=== PATIENT | female | born 1960 | race Caucasian/White ===

== ENCOUNTER 2024-03-23 13:00 | Outpatient (RCR) | payer MEDICAID, SELFPAY ==
--- NOTE | 2024-03-23 13:21 | PTNOTE_ITS ---
PT OP Initial Eval Patient Information Outpatient Physical Therapy Treatment Date: 03/23/24 Visit Reasons: low back pain Medical Diagnosis: M54.50 Treatment Dx #1: LBP Start of Care: 03/23/24 Date of Onset: 05/22/2022 Smoking Status Smoking Status: Current every day smoker Cessation Counseling Provided: CAPRICE was advised that quitting smoking is the single most important factor to protect the health of themselves and their family. Discussed the benefits of quitting smoking with patient. Encouraged patient to quit smoking and provided Cessation assistance materials and resources. Tobacco Use: Cigarette Years smoked: 45 Are you interested in quitting?: No Would you like additional Smoking Cessation Counseling?: No Initial Assessment Subjective: Patient is a 63-year-old female s/p L1-4 decompression, L3-4 TLIF presents in power riooter for LBP and LE weakness. Pt say she feels weak and can walk a few feet and then back to the chair. PMH: CVA with left hemiplegia with dysarthria, hypertension, alcoholic liver cirrhosis, polysubstance abuse, fibromyalgia, bipolar disorder, severe scoliosis, osteoporosis, PTSD, anxiety Imaging: Xrays of L/S Lumbar levoscoliosis 18 degrees?Lumbar fusion L4-L5 with satisfactory alignment?Mild to moderate disc narrowing above the fusion site, L1-L2, L2-L3, L3-L4 Pt goal: ?to build muscle and get more strength, less LBP Objective: LE strength: Quads: L: 4-/5, R: 4-/5 HS: 3+/5 B Gait: leans fwd, very hunched and kyphotic, discontinuous steps, no assistive device x15' Transfers: sit to stand independent with use of hands Observation: hyperkyphosis of T/S with levoscoliosis Balance: unsteady without hands TTP: mod/high of L/S paraspinals diffusely Assessment: Pt presents with decreased B LE strength L weaker than R and balance impairment consistent with lumbar DDD, stenosis and LE claudication. Pt may benefit from skilled therapy in order to meet goals and she has poor rehab potential due to severity of ssx. Short Term and Community Recreation Programmer Goals 1. Ind with HEP 2. Improved quad strength to at least 4/5 B in order to stand and ambulate for longer periods 3. Decreased TTP of L/S paraspinals from mod to min Treatment Plan ? ? ? 1. Manual therapy ? 2. Therex ? 3. Modalities as indicated, moist heat pack, ice, electrical stimulation ? ? ? Frequency and Duration: 1-2x a week for 12 visits Certification Dates: 03/23/24 to 06/21/24 Procedure Charges OP PT Eval Mod Complex 30 minutes: Yes
== END 2024-04-09 23:59 | disposition home or self-care (01) ==
LOC: CPTX 13:00
PROVIDERS: PCP Student in an Organized Health Care Education/Training Program; Referring Provider Student in an Organized Health Care Education/Training Program; Visit Provider Student in an Organized Health Care Education/Training Program
DX: M54.50 Low back pain, unspecified (principal); R53.1 Weakness; R26.89 Other abnormalities of gait and mobility; M41.86 Other forms of scoliosis, lumbar region; Z98.1 Arthrodesis status; Z71.6 Tobacco abuse counseling; F17.210 Nicotine dependence, cigarettes, uncomplicated
CPT/HCPCS: 97162

== ENCOUNTER 2024-04-21 10:49 | Emergency (ER) | payer MEDICAID, SELFPAY ==
[2024-04-21 11:09] VITALS: BP 187/89; PULSE 96; RESP 19; TEMP 36.9; O2SAT 98; BMI 22.7
--- NOTE | 2024-04-21 11:16 | XR_ITS ---
Examination: CT brain head without contrast. 2-D sagittal coronal reconstructions Date and time of exam:April 21, 2024 1225 hours Comparison March 09, 2024 INDICATIONS: Onset severe head pain today CTDI: vol (mGy):47.8 DLP: (mGycm):999 Technique: Multiple CT axial sections of the brain have been obtained, 5 mm slice thickness. Contrast has not been administered. 2-D sagittal, coronal reconstructions have been obtained Low dose protocols were performed. One or more of the following dose reduction techniques were used; automated exposure control, adjustment of the mA and/or KV according to patient size, use of iterative reconstruction technique. Findings: No significant ventricular enlargement. Intra-axial or extra-axial hemorrhage density is not seen. No mass effect or midline shift Basal cisterns are not remarkable. Fourth ventricle is midline. Cranial vault intact. Impression: Negative for acute hemorrhage, mass effect or midline shift Consider brain MRI MRA without contrast follow-up as clinically warranted
--- NOTE | 2024-04-21 11:17 | EDRME_ITS ---
Rapid Medical Screening Exam RME Arrival date/time: 04/21/24 10:49 63-year-old female presents emergency department complains of headache, right ear drainage and generalized bodyaches as well as dizziness. Patient reports that she has been out of her [place] for the last 6 weeks Chief Complaint: Recheck/Abnormal Lab/Rx Time Seen by Provider: 04/21/24 10:51 Vital signs: Vital Signs Temperature 98.4 F 04/21/24 11:09 Pulse Rate 96 04/21/24 11:09 Respiratory Rate 19 04/21/24 11:09 Blood Pressure 187/89 H 04/21/24 11:09 Pulse Oximetry (%) 98 04/21/24 11:09 Oxygen Delivery Method Room Air 04/21/24 11:09
[2024-04-21 12:24] LABS: Collection Type, Urine Clean Catch
[2024-04-21 12:40] LABS: Amphetamine/Methamp Scrn,U Negative (Negative); Barbiturate Screen,Urine Negative (Negative); Benzodiazepines Screen,Urine Negative (Negative); Benzoylecgonine Screen, Ur Negative (Negative); Fentanyl Screen,Urine Negative (Negative); Opiate Screen,Urine Negative (Negative); THC Screen,Urine Positive (Negative)
[2024-04-21 12:42] LABS: Bacteria,Urine 1+; Bilirubin,Urine Negative (Negative); Blood,Urine Negative (Negative); Clarity,Urine Clear (Clear/Hazy); Color,Urine Lt-Yellow (Lt Yel-Yel); Glucose, Urine Negative (Negative); Ketones,Urine Negative (Negative); Leukocyte Esterase,Urine Negative (Negative); Nitrite,Urine Negative (Negative); PH,Urine 6.5 (5.0-7.0); Protein,Urine Trace (Neg - Trace); RBC,Urine 2 /hpf (0-3); Specific Gravity,Urine 1.009 (1.001-1.035); Squamous Epithelial Cell,Urine 1 /hpf (0-5); Urobilinogen,Urine Negative mg/dL (0.0-1.0); WBC,Urine < 1 /hpf (0-5)
[2024-04-21 13:01] LABS: Culture Indicated,Urine Yes
[2024-04-21 13:54] VITALS: BP 182/127; BP 206/121; PULSE 107; RESP 20; TEMP 36.9; O2SAT 96
[2024-04-21 14:18] LABS: Basophils # (Auto) 0.1 Thou/mm3 (0.0-0.2); Basophils % (Auto) 1 % (0-2.5); Eosinophils # (Auto) 0.2 Thou/mm3 (0.0-0.5); Eosinophils % (Auto) 2 % (0-10); Hematocrit 39.8 % (36.0-46.0); Immature Granulocytes % (Auto) 1 % (0-0); Immature Granulocytes Auto 0.08 Thou/mm3 (0.00-0.00); Lymphocytes % (Auto) 22 % (10-50); Mean Corpuscular HGB Conc 32.7 g/dl (31.0-37.0); Mean Corpuscular Hemoglobin 33.3 pg (25.0-35.0); Mean Corpuscular Volume 102 fL (80-100); Monocytes % (Auto) 8 % (0-12); Neutrophils # (Auto) 9.1 Thou/mm3 (1.8-7.7); Neutrophils % (Auto) 68 % (37-80); Nucleated Red Blood Cell % 0 /100 WBC (0); Platelet Count 407 Thou/mm3 (140-440); RDW Standard Deviation 54.7 fL (36.4-46.3); White Blood Count 13.5 Thou/mm3 (3.6-11.0)
[2024-04-21 14:34] LABS: Alanine Aminotransferase 19 U/L (10-49); Albumin/Globulin Ratio 1.8 (1.2-2.2); Alkaline Phosphatase 108 U/L (46-116); Anion Gap 8 (7-16); Aspartate Amino Transferase 18 U/L (0-34); BUN/Creatinine Ratio 10 Ratio (12-20); Bilirubin,Total 0.2 mg/dL (0.3-1.2); Blood Urea Nitrogen 11 mg/dL (9-23); Calcium 9.5 mg/dL (8.3-10.6); Calcium (Corrected) 9.5 mg/dL (8.5-10.1); Chloride 102 mMol/L (98-107); Creatinine (Component) 1.1 mg/dL (0.6-1.3); Globulin 2.8 gm/dL (2.3-3.5); Glucose 108 mg/dL (74-106); Lipase 44 U/L (12-53); Osmolality,Calculated 272 (275-295); Potassium 3.5 mMol/L (3.4-5.1); Sodium 136 mMol/L (136-145); Total Protein 7.8 gm/dL (5.7-8.2); Troponin I < 0.020 ng/mL (0.0-0.045); eGFR 57 See Note
--- NOTE | 2024-04-21 14:35 | EDNOTE_ITS ---
ED Recheck Abnl Lab Rx-RME/HPI General Chief Complaint: Recheck/Abnormal Lab/Rx Stated Complaint: HIGH BP, NUNES, BLURRY VISION, RIGHT EAR DISCHARGE Time Seen by Provider: 04/21/24 10:51 Arrival date/time: 04/21/24 10:49 RME / HPI Description of abnormal result: 63-year-old female patient with significant history of debility, currently on electric scooter, came in for evaluation regarding headache right ear ache and generalized body weakness. Patient also complained of blurry vision and dizziness. Is been ongoing for several days. Patient told me that he ran out of his [place] for the last 6 weeks. Patient denies any cough denies any slurring of speech denies any other complaints no medications taken prior travel. Related Data Home Medications ?Medication ?Instructions ?Recorded ?Confirmed ziprasidone HCl 80 mg capsule 80 mg PO BID 04/05/19 02/04/24 (Geodon) venlafaxine 75 mg tablet 75 mg PO TID 12/04/20 02/04/24 atorvastatin 40 mg tablet 40 mg PO HS 03/27/23 02/04/24 cetirizine 10 mg tablet 10 mg PO DAILY PRN Allergy Symptoms 03/27/23 04/16/23 clonazepam 1 mg tablet 1 mg PO BID 03/27/23 04/16/23 docusate sodium 250 mg capsule 250 mg PO HSPRN PRN Constipation 03/27/23 04/16/23 (Stool Softener) ferrous sulfate 325 mg (65 mg 325 mg PO BID 03/27/23 04/16/23 iron) tablet (FeroSul) lamotrigine 25 mg tablet 50 mg PO HS 03/27/23 02/04/24 potassium chloride 10 mEq 10 meq PO DAILY 03/27/23 04/16/23 tablet,extended release pregabalin 75 mg capsule 75 mg PO TID PRN Pain 03/27/23 02/04/24 tizanidine 2 mg tablet 2 mg PO Q12HR PRN Muscle Spasm 03/27/23 02/04/24 clopidogrel 75 mg tablet 75 mg PO DAILY 04/16/23 04/16/23 hydrocodone 10 mg-acetaminophen 1 tab PO TID PRN pain 04/17/23 02/04/24 325 mg tablet docusate sodium 100 mg capsule mg PO 02/04/24 donepezil 5 mg tablet (Aricept) 5 mg PO QDAY 02/04/24 02/04/24 famotidine 20 mg tablet 20 mg PO QDAY 02/04/24 02/04/24 levothyroxine 150 mcg tablet 150 mcg PO QDAY 02/04/24 02/04/24 rivaroxaban 20 mg tablet (Xarelto) 20 mg PO QDAY 02/04/24 02/04/24 Previous Rx's ?Medication ?Instructions ?Recorded acetaminophen 500 mg tablet 1,000 mg (2 x 500 mg) PO Q6H PRN 07/05/23 (Tylenol Extra Strength) fever or pain #30 tabs diphenhydramine 12.5 1 tab PO BID #7 tabs 01/19/24 mg-acetaminophen 325 mg tablet (Percogesic) lisinopril 10 mg tablet 10 mg PO QDAY #30 tabs 04/21/24 Allergies Allergy/AdvReac Type Severity Reaction Status Date / Time diphenhydramine Allergy Severe ITCHING Verified 03/11/24 15:37 ketorolac Allergy Severe ITCHING Verified 03/11/24 15:37 Penicillins Allergy Severe ITCH Verified 03/11/24 15:37 sumatriptan succinate Allergy Severe ITCHING, Verified 03/11/24 15:37 VOMITING propranolol Allergy Unknown Verified 03/11/24 15:37 codeine AdvReac Severe Vomiting Verified 03/11/24 15:37 Review of Systems Review of Systems Narrative Review of Systems: Review of system reviewed and within normal limits except mentioned in HPI ED Exam Narrative Physical exam: VITAL SIGNS: Reviewed. GENERAL APPEARANCE: Alert and interactive, follows commands, no acute distress, HEAD AND FACE: Non-traumatic. ENT: PERRL, pink conjunctivitis, eyelid no trauma, Mucous membrane moist. Bilateral tympanic membrane , no erythema, no bulging nontender NECK: Supple, nontender, no nuchal rigidity. CHEST: No tenderness, no crepitus, no paradoxical movement, no retractions. LUNGS: Clear, well ventilated, symmetric, no rales, no wheezing, no ronchi, no stridor, good breath sounds bilaterally. HEART: Regular rate, regular rhythm, no murmur, no gallops. ABDOMEN: Soft, positive bowel sounds, nondistended, no guarding, nontender, no rebound, no masses, RECTAL: Deferred. GENITAL: Deferred. NEUROLOGICAL: Gross motor function intact sensory function intact, Appropriate for age. MUSCULOSKELETAL: low back nontender, full range of motion. EXTREMITIES: Nontender, full range of motion. SKIN: Color pink, dry, no rash, no lacerations, no abrasions, no contusions. LYMPHATICS: Deferred. Course Quality Measures none Orders Category Date Time Status CT head/brain wo con Stat Exams 04/21/24 11:16 Completed CBC Stat Lab 04/21/24 13:50 Completed Comprehensive Metabolic Panel Stat Lab 04/21/24 13:50 Completed Drug Screen,Urine Stat Lab 04/21/24 12:20 Completed Lipase Stat Lab 04/21/24 13:50 Completed Troponin I Stat Lab 04/21/24 13:50 Completed UA, C/S IF [Urinalysis, C/S if Indicated] Stat Lab 04/21/24 12:15 Completed Urine Culture Stat Lab 04/21/24 12:15 Received HYDROcodone/APAP 10/325 [[place] 10/325] Med 04/21/24 14:37 Discontinued 1 tab PO X1 ONE Morphine Inj Med 04/21/24 14:34 Discontinued 4 mg IM X1 ONE Ondansetron Odt [Zofran Odt] Med 04/21/24 14:34 Discontinued 4 mg PO X1 ONE hydrALAZINE HCL [Apresoline] Med 04/21/24 14:32 Discontinued 25 mg PO X1 ONE Vital Signs Vital signs: Vital Signs Temperature 98.4 F 04/21/24 11:09 Pulse Rate 96 04/21/24 11:09 Respiratory Rate 19 04/21/24 11:09 Blood Pressure 187/89 H 04/21/24 11:09 Pulse Oximetry (%) 98 04/21/24 11:09 Oxygen Delivery Method Room Air 04/21/24 11:09 Recheck / Abnormal Lab / Rx MDM Narrative MDM Narrative:: 63-year-old female patient with significant history of debility, currently on electric scooter, came in for evaluation regarding headache right ear ache and generalized body weakness. Patient also complained of blurry vision and dizziness. Is been ongoing for several days. Patient told me that he ran out of his [place] for the last 6 weeks. Patient denies any cough denies any slurring of speech denies any other complaints no medications taken prior travel. Patient's workup today all came back unremarkable except for leukocytosis of 13.5 CMP unremarkable. Troponin is normal urinalysis no UTI drug toxicity positive for marijuana. Including normal CT scan of the head. Patient data External records reviewed:: None Clinical information provided by:: none Social determinants that could affect healthcare access:: none Patient has the following chronic illnesses:: Shift history of bipolar disorder chronic kidney disease type 2 diabetes mellitus How is presenting disease/condition affected by chronic disease/condition?: exacerbated by Evaluation data The following diagnostics were reviewed and interpreted by me:: lab results and radiology exam(s) Lab and/or radiology exams considered but not ordered:: None Interpretation Summary: CT scan of the head came back unremarkable. Laboratory couple came back unremarkable except for slight leukocytosis. Urinalysis no UTI. Medications / Prescriptions Medications or Prescriptions considered but not ordered:: None Medication administrations:: Medication Administration History Discontinued Medications Hydrocodone Bitart/Acetaminophen (Hydrocodone/Apap 10/325 Tab) 1 tab PO X1 ONE Stop: 04/21/24 14:38 Last Admin: 04/21/24 15:20 Dose: 1 tab Documented By: DONATO Hydralazine HCl (Hydralazine Hcl 25 Mg Tablet) 25 mg PO X1 ONE Stop: 04/21/24 14:33 Last Admin: 04/21/24 15:20 Dose: 25 mg Documented By: DONATO Morphine Sulfate (Morphine Sulf Inj 10 Mg/Ml Vial) 4 mg IM X1 ONE Stop: 04/21/24 14:35 Last Admin: 04/21/24 15:15 Dose: Not Given Documented By: DONATO Non-Admin Reason: Discontinued Ondansetron HCl (Ondansetron Odt 4 Mg Tabrap) 4 mg PO X1 ONE; Protocol Stop: 04/21/24 14:35 Last Admin: 04/21/24 15:20 Dose: 4 mg Documented By: DONATO Patient received , hydralazine, and [place] with significant improvement of symptoms. Consultations Consultation(s) initiated? (list below): No Diagnosis Recheck Differential Diagnosis: other (Headache, dizziness, hypertension) Most likely diagnosis given after review of the tests above:: Headache, hypertension Admission Indicated Admission indicated?: not indicated Admission Request Was there a request for admission?: No Disposition Plan Disposition Plan: Discharge Discharge Attestation Discharge Attestation: The patient was given an opportunity to ask questions and understood the discharge instructions. Discharge instructions specifically effects, indications for sooner follow up or return to the emergency department, and the expected course of current diagnosis. Patient condition: Stable Discharge Plan Plan Patient Disposition: HOME (Self Care) Disposition Comment: stable Prescriptions/Referrals Prescriptions/Med Rec: New lisinopril 10 mg tablet 10 mg PO QDAY Qty: 30 0RF No Action ziprasidone HCl [Geodon] 80 mg Capsule 80 mg PO BID venlafaxine 75 mg Tablet 75 mg PO TID acetaminophen [Tylenol Extra Strength] 500 mg tablet 1,000 mg PO Q6H PRN (Reason: fever or pain) Qty: 30 0RF Percogesic 12.5-325 mg tablet 1 tab PO BID Qty: 7 0RF Xarelto 20 mg Tablet 20 mg PO QDAY Rx Instructions: must administer with evening meal donepezil [Aricept] 5 mg Tablet 5 mg PO QDAY famotidine 20 mg Tablet 20 mg PO QDAY levothyroxine 150 mcg Tablet 150 mcg PO QDAY docusate sodium 100 mg Capsule PO ferrous sulfate [FeroSul] 325 mg (65 mg iron) tablet 325 mg PO BID Patient Comments: TAKE ONE TABLET BY MOUTH WITH ORANGE JUICE TWICE DAILY VITAMIN lamotrigine 25 mg tablet 50 mg PO HS Patient Comments: TAKE TWO TABLETS BY MOUTH EVERY DAY tizanidine 2 mg tablet 2 mg PO Q12HR PRN (Reason: Muscle Spasm) Patient Comments: TAKE ONE TABLET BY MOUTH EVERY 12 hours NEEDED FOR MUSCLE spasm DO not exceed THREE doses in 24 hours clonazepam 1 mg tablet 1 mg PO BID Patient Comments: TAKE ONE TABLET BY MOUTH TWICE DAILY FOR ANXIETY docusate sodium [Stool Softener] 250 mg Capsule 250 mg PO HSPRN PRN (Reason: Constipation) atorvastatin 40 mg tablet 40 mg PO HS Patient Comments: TAKE ONE TABLET BY MOUTH AT BEDTIME FOR CHOLESTEROL cetirizine 10 mg tablet 10 mg PO DAILY PRN (Reason: Allergy Symptoms) Patient Comments: TAKE ONE TABLET BY MOUTH EVERY DAY NEEDED FOR ALLERGY potassium chloride 10 mEq tablet extended release 10 meq PO DAILY Patient Comments: TAKE ONE TABLET BY MOUTH EVERY DAY WITH FOOD pregabalin 75 mg capsule 75 mg PO TID PRN (Reason: Pain) Patient Comments: TAKE ONE CAPSULE BY MOUTH THREE TIMES DAILY NEEDED FOR PAIN clopidogrel 75 mg tablet 75 mg PO DAILY Patient Comments: TAKE ONE TABLET BY MOUTH EVERY DAY FOR THE HEART hydrocodone-acetaminophen 10-325 mg Tablet 1 tab PO TID PRN (Reason: pain) Referrals: No Primary/Family,Physician [Primary Care Provider] - In 1 week Problem List Clinical Impression: Hypertension, Headache Patient/Caregiver Discharge Instructions Discharge Activity: activity as tolerated Education Materials: ED High Blood Pressure ... Additional Instructions: Thank you for the opportunity for serving you today. You are stable for discharged . You are advised to: Follow-up with your PCP in 1 to 2 days Return to ED for worsening of symptoms Increase oral fluids Take medication as prescribed Print Language: Romanian Stand Alone Forms: Fany Award Info., Patient Portal Info Letter PA/SHIPPING SERVICES SALES REPRESENTATIVE Supervising Physician PA/SHIPPING SERVICES SALES REPRESENTATIVE Supervising Physician: MD Barbara
[2024-04-21 15:20] VITALS: BP 206/121; PULSE 107
[2024-04-21] MEDS: ONDANSETRON ODT 4 MG TABRAP PO (15:20)
[2024-04-21] MEDS: HYDROcodone/APAP 10/325 TAB PO (15:20)
[2024-04-21] MEDS: hydrALAZINE HCL 25 MG TABLET PO (15:20)
[2024-04-21 16:15] VITALS: BP 170/116; PULSE 104; RESP 20; TEMP 36.8; O2SAT 95
== END 2024-04-21 17:46 | disposition home or self-care (01) ==
PROVIDERS: Nurse Practitioner Primary Care; Emergency Provider Emergency Medicine
DX: R51.9 Headache, unspecified (principal); I10 Essential (primary) hypertension
CPT/HCPCS: 36415; 70450; 80053; 80307; 81001; 83690; 84484; 85025; 87086; 99284; Q0162; A9270

== ENCOUNTER 2024-04-27 14:00 | Outpatient (RCR) | payer MEDICAID, SELFPAY ==
--- NOTE | 2024-04-13 14:40 | PT.ODAYNRPT ---
PT Outpatient Daily Note OP Daily Note Outpatient Physical Therapy Treatment Date: 04/13/24 Visit Reasons: LOW BACK PAIN Subjective: Pt reports LBP and weak legs. Objective: Please see flow sheet for ther ex list. Assessment: Pt presents with excessive trunk flexion, pt educated on upright posture. Pt encouraged to work on posture for HEP, pt agreed. Plan: Continue with POC, assess response to treatment. Length of Time (minutes) of Treatment: 30 Minutes Procedure Charges Therapeutic Exercise 30 minutes: Yes
--- NOTE | 2024-04-20 14:51 | PT.ODAYNRPT ---
PT Outpatient Daily Note OP Daily Note Outpatient Physical Therapy Treatment Date: 04/20/24 Visit Reasons: LOW BACK PAIN Subjective: Pt reports LBP and mentioned she was sore after last session. Objective: Please see flow sheet for ther ex list. Assessment: Interventions given alternating sitting an standing to maximize pt participation. Plan: Continue with POC. Length of Time (minutes) of Treatment: 30 Minutes Procedure Charges Therapeutic Exercise 30 minutes: Yes
--- NOTE | 2024-04-27 14:28 | PT.ODAYNRPT ---
PT Outpatient Daily Note OP Daily Note Outpatient Physical Therapy Treatment Date: 04/27/24 Visit Reasons: LOW BACK PAIN Subjective: Pt reports she is having a lot of pain in the shoulder and low back. Objective: Please see flow sheet for ther ex list. Assessment: Pt demonstrates poor activity tolerance today due to pain. Interventions mostly performed in sitting due to aggravating pain in standing. Plan: Continue with POC. Length of Time (minutes) of Treatment: 30 Minutes Procedure Charges Therapeutic Exercise 30 minutes: Yes
== END 2024-05-10 23:59 | disposition home or self-care (01) ==
LOC: CPTX 14:00
PROVIDERS: PCP Student in an Organized Health Care Education/Training Program; Referring Provider Student in an Organized Health Care Education/Training Program; Visit Provider Student in an Organized Health Care Education/Training Program
DX: M54.50 Low back pain, unspecified (principal); R53.1 Weakness; Z98.890 Other specified postprocedural states
CPT/HCPCS: 97110

== ENCOUNTER 2024-05-02 13:27 | Emergency (ER) | payer MEDICAID, SELFPAY ==
--- NOTE | 2024-05-02 13:45 | XR_ITS ---
Examination: CT abdomen and pelvis without contrast. Coronal 3-D reconstructions. Sagittal 2-D reconstructions. Date and time of exam:May 02, 2024 1456 hrs. Indications: Lower abdominal pain with bloody stools beginning 3 days ago CTDI: vol (mGy): 8.99 DLP: (mGycm): 486 Technique: Axial images of the abdomen have been obtained, 3 mm slice thickness Intravenous contrast material has not been administered. Low dose protocols were performed. One or more of the following dose reduction techniques were used; automated exposure control, adjustment of the mA and/or KV according to patient size, use of iterative reconstruction technique. Findings: No focal liver or splenic lesions No biliary tract dilatation. Absent gallbladder No pancreatic mass. No hydronephrosis renal or ureteral calculi Abdominal aortic calcification no aneurysmal dilatation No bowel obstruction or diverticulitis Urinary bladder intact Advanced degenerative disc disease involving the lumbar spine On the lateral view there appears to be rectal and vaginal prolapse Impression: Rectal and vaginal prolapse
--- NOTE | 2024-05-02 13:46 | PD.EDRME ---
Rapid Medical Screening Exam RME Arrival date/time: 05/02/24 13:27 63-year-old female presents to the emergency department today for concerns for possible vaginal prolapse Chief Complaint: Urogenital-Female Time Seen by Provider: 05/02/24 13:34
[2024-05-02 13:48] VITALS: BP 105/67; PULSE 96; RESP 18; TEMP 36.6; O2SAT 99; BMI 33.3
[2024-05-02] MEDS: HYDROcodone/APAP 5/325 TABLET 1 TAB PO ×2 (13:52→18:14)
[2024-05-02 14:03] LABS: Basophils # (Auto) 0.1 Thou/mm3 (0.0-0.2); Basophils % (Auto) 1 % (0-2.5); Eosinophils # (Auto) 0.1 Thou/mm3 (0.0-0.5); Eosinophils % (Auto) 1 % (0-10); Hematocrit 39.3 % (36.0-46.0); Hemoglobin 12.4 g/dL (12.0-16.0); Immature Granulocytes % (Auto) 1 % (0-0); Immature Granulocytes Auto 0.06 Thou/mm3 (0.00-0.00); Lymphocytes # (Auto) 2.5 Thou/mm3 (1.0-4.8); Lymphocytes % (Auto) 20 % (10-50); Mean Corpuscular HGB Conc 31.6 g/dl (31.0-37.0); Mean Corpuscular Hemoglobin 33.1 pg (25.0-35.0); Mean Corpuscular Volume 105 fL (80-100); Monocytes # (Auto) 0.8 Thou/mm3 (0.0-0.8); Monocytes % (Auto) 7 % (0-12); Neutrophils # (Auto) 9.1 Thou/mm3 (1.8-7.7); Neutrophils % (Auto) 72 % (37-80); Nucleated Red Blood Cell % 0 /100 WBC (0); Platelet Count 363 Thou/mm3 (140-440); RDW Standard Deviation 54.8 fL (36.4-46.3); Red Blood Count 3.75 Miln/mm3 (4.00-5.20); White Blood Count 12.7 Thou/mm3 (3.6-11.0)
[2024-05-02 14:16] LABS: Collection Type, Urine Clean Catch
[2024-05-02 14:25] LABS: Alanine Aminotransferase 19 U/L (10-49); Albumin, Serum 4.8 gm/dL (3.4-4.8); Albumin/Globulin Ratio 1.8 (1.2-2.2); Alkaline Phosphatase 96 U/L (46-116); Anion Gap 6 (7-16); Aspartate Amino Transferase 32 U/L (0-34); BUN/Creatinine Ratio 8 Ratio (12-20); Bilirubin,Total 0.2 mg/dL (0.3-1.2); Blood Urea Nitrogen 10 mg/dL (9-23); Calcium 9.6 mg/dL (8.3-10.6); Calcium (Corrected) 9.6 mg/dL (8.5-10.1); Carbon Dioxide 27.3 mMol/L (20.0-31.0); Chloride 103 mMol/L (98-107); Creatinine (Component) 1.2 mg/dL (0.6-1.3); Estimated Creatinine Clearance 43.4 mL/min (>60); Globulin 2.7 gm/dL (2.3-3.5); Glucose 88 mg/dL (74-106); Lipase 51 U/L (12-53); Osmolality,Calculated 269 (275-295); Potassium 4.7 mMol/L (3.4-5.1); Sodium 136 mMol/L (136-145); Total Protein 7.5 gm/dL (5.7-8.2); eGFR 52 See Note
[2024-05-02 14:30] LABS: Bacteria,Urine 2+; Bilirubin,Urine Negative (Negative); Blood,Urine Negative (Negative); Clarity,Urine Clear (Clear/Hazy); Color,Urine Lt-Yellow (Lt Yel-Yel); Glucose, Urine Negative (Negative); Ketones,Urine Negative (Negative); Leukocyte Esterase,Urine Negative (Negative); Nitrite,Urine Negative (Negative); PH,Urine 6.5 (5.0-7.0); Protein,Urine Negative (Neg - Trace); RBC,Urine 1 /hpf (0-3); Specific Gravity,Urine 1.007 (1.001-1.035); Squamous Epithelial Cell,Urine 2 /hpf (0-5); Urobilinogen,Urine Negative mg/dL (0.0-1.0); WBC,Urine 1 /hpf (0-5)
[2024-05-02 14:34] LABS: Culture Indicated,Urine Yes
--- NOTE | 2024-05-02 15:55 | EDNOTE_ITS ---
ED General RME/HPI General Chief complaint: Urogenital-Female Stated complaint: FEELS LIKE MY BLADDER IS COMING OUT Time Seen by Provider: 05/02/24 13:34 Arrival date/time: 05/02/24 13:27 CC: Low center abdominal pain with bloody urination HPI ongoing for 1 year but the low center abdominal pain has worsened in the last 2 days. Patient states 1 year ago she was seen by her PLANOGRAMMER who states that she has a dropped bladder , patient did not follow-up now states it is beginning to bother her. Patient states she continues to have blood in her urine for the last year . Patient denies fever cough shortness of breath difficulty breathing. RME / HPI RME / HPI narrative: 05/02/24 13:27 63-year-old female presents to the emergency department today for concerns for possible vaginal prolapse Related Data Home Medications ?Medication ?Instructions ?Recorded ?Confirmed ziprasidone HCl 80 mg capsule 80 mg PO BID 04/05/19 02/04/24 (Geodon) venlafaxine 75 mg tablet 75 mg PO TID 12/04/20 02/04/24 atorvastatin 40 mg tablet 40 mg PO HS 03/27/23 02/04/24 cetirizine 10 mg tablet 10 mg PO DAILY PRN Allergy Symptoms 03/27/23 04/16/23 clonazepam 1 mg tablet 1 mg PO BID 03/27/23 04/16/23 docusate sodium 250 mg capsule 250 mg PO HSPRN PRN Constipation 03/27/23 04/16/23 (Stool Softener) ferrous sulfate 325 mg (65 mg 325 mg PO BID 03/27/23 04/16/23 iron) tablet (FeroSul) lamotrigine 25 mg tablet 50 mg PO HS 03/27/23 02/04/24 potassium chloride 10 mEq 10 meq PO DAILY 03/27/23 04/16/23 tablet,extended release pregabalin 75 mg capsule 75 mg PO TID PRN Pain 03/27/23 02/04/24 tizanidine 2 mg tablet 2 mg PO Q12HR PRN Muscle Spasm 03/27/23 02/04/24 clopidogrel 75 mg tablet 75 mg PO DAILY 04/16/23 04/16/23 hydrocodone 10 mg-acetaminophen 1 tab PO TID PRN pain 04/17/23 02/04/24 325 mg tablet docusate sodium 100 mg capsule mg PO 02/04/24 donepezil 5 mg tablet (Aricept) 5 mg PO QDAY 02/04/24 02/04/24 famotidine 20 mg tablet 20 mg PO QDAY 02/04/24 02/04/24 levothyroxine 150 mcg tablet 150 mcg PO QDAY 02/04/24 02/04/24 rivaroxaban 20 mg tablet (Xarelto) 20 mg PO QDAY 02/04/24 02/04/24 Previous Rx's ?Medication ?Instructions ?Recorded acetaminophen 500 mg tablet 1,000 mg (2 x 500 mg) PO Q6H PRN 07/05/23 (Tylenol Extra Strength) fever or pain #30 tabs diphenhydramine 12.5 1 tab PO BID #7 tabs 01/19/24 mg-acetaminophen 325 mg tablet (Percogesic) lisinopril 10 mg tablet 10 mg PO QDAY #30 tabs 04/21/24 meloxicam 7.5 mg tablet 7.5 mg PO QDAY #10 tabs 05/02/24 Allergies Allergy/AdvReac Type Severity Reaction Status Date / Time diphenhydramine Allergy Severe ITCHING Verified 03/11/24 15:37 ketorolac Allergy Severe ITCHING Verified 03/11/24 15:37 Penicillins Allergy Severe ITCH Verified 03/11/24 15:37 sumatriptan succinate Allergy Severe ITCHING, Verified 03/11/24 15:37 VOMITING propranolol Allergy Unknown Verified 03/11/24 15:37 codeine AdvReac Severe Vomiting Verified 03/11/24 15:37 Review of Systems Review of Systems Narrative Review of Systems: GEN: No fever, no chills, no weight loss EYES: No discharge, no visual changes, no pain HEENT: No ear pain, no congestion, no sore throat PULM: No shortness of breath, no cough, no congestion CV: No chest pain, no dyspnea on exertion, no palpitations GI: No nausea, no vomiting, no diarrhea, + pain, no constipation : No frequency, no urgency, no dysuria MUSC/SKEL: No joint pain, no back pain SKIN: No rash PSYCH: No hallucinations, no depression HEME/LYMPH: No easy bleeding or bruising tendencies NEURO: No weakness, no headache Past Medical History Past Medical History NEUROLOGIC: Positive Neurological Disorders, Cerebrovascular Accident, Transient Ischemic Attacks (TIA), Seizures, Migraine and Head Trauma CARDIAC: Positive Cardiac Disorders, Hypercholesterolemia and Hypertension; Negative Congestive Heart Failure or Edema RESPIRATORY: Positive Chronic Obstructive Pulmonary Disease (COPD) and Asthma GASTROINTESTINAL: Positive Gastrointestinal Disorders, Cirrhosis, Ulcer, Gastroesophageal Reflux Disease and Obesity; Negative Hepatitis GENITOURINARY: Positive Genitourinary Disorders and Renal Disease REPRODUCTIVE: Positive Previous Pregnancies MUSCULOSKELETAL: Positive Musculoskeletal Disorders, Arthritis, Osteoporosis, Degenerative Disk Disease, Gout, Scoliosis, Fibromyalgia and Fractures ENT: Positive Head Trauma ENDOCRINE: Positive Endocrine Disorders and Hypothyroidism; Negative Diabetes Mellitus Type 1 or Diabetes Mellitus Type 2 HEMATOLOGIC: Positive Blood Disorders and Anemia; Negative Sickle Cell Disease or Clotting Problems PSYCHO/SOCIAL: Positive Bipolar Disorder, Depression, Anxiety and Post Traumatic Stress Disorder OTHER HISTORY: Positive Falls, Blood Transfusions, Chemotherapy, Chicken Pox, Measles and Mumps; Negative Hospitalization, Shingles, Blood Transfusion Reaction, Anesthesia Reactions, Radiation Therapy or MRSA Family History FAMILY HISTORY: Positive Family Cancer; Negative Family Respiratory Disorders, Family Surgery or Family Anesthesia Reaction Surgical History SURGICAL: Positive Endocrine Surgery, Thyroidectomy, Abdominal Surgery, Amputation, Open Reduction Internal Fixation, Hysterectomy and Section; Negative Cardiac Surgery, Ear Surgery or Tubal Ligation Social History SMOKING STATUS: Heavy (> 1 pack/day) SECOND HAND EXPOSURE: No (vape) SUBSTANCE USE: does not use ED Exam Narrative Physical exam: [General: Obese not in any acute distress Head normocephalic HEENT: Within acceptable limits Neck is supple nontender Chest equal chest rise nontender to palpation Respiratory: Clear to auscultation no wheezes crackles or rubs CV: Rate rhythm is regular no murmurs rubs or clicks Abdomen low center abdominal tenderness no reflexive guarding no rebound tenderness. No masses positive bowel sounds all 4 quadrants Back: No CVA tenderness no spinous process tenderness from cervical spine thoracic and lumbar spine Skin: Intact no petechiae rash induration ulceration or crepitus Extremities: Moving all extremity against resistance cap refill less than 2 seconds neurosensory intact. No edema in the lower extremities. Neuro: Awake alert oriented x3 Glascow coma 15 no focal deficits] Course Quality Measures none Orders Category Date Time Status CT abdomen pelvis wo con Stat Exams 05/02/24 13:45 Completed US abdomen limited Stat Exams 05/02/24 17:26 Completed CBC Stat Lab 05/02/24 13:54 Completed Comprehensive Metabolic Panel Stat Lab 05/02/24 13:54 Completed Lipase Stat Lab 05/02/24 13:54 Completed UA, C/S IF [Urinalysis, C/S if Indicated] Stat Lab 05/02/24 13:53 Completed Urine Culture Stat Lab 05/02/24 13:53 Received HYDROcodone*/APAP 5/325 [[place] 5/325] Med 05/02/24 13:47 Discontinued 1 tab PO X1 ONE HYDROcodone*/APAP 5/325 [[place] 5/325] Med 05/02/24 18:03 Discontinued 1 tab PO X1 ONE Vital Signs Vital signs: Vital Signs Temperature 98 F 05/02/24 13:48 Pulse Rate 96 05/02/24 13:48 Respiratory Rate 18 05/02/24 13:48 Blood Pressure 105/67 05/02/24 13:48 Pulse Oximetry (%) 99 05/02/24 13:48 Oxygen Delivery Method Room Air 05/02/24 13:48 MDM Patient data External records reviewed:: [facility] previous records Clinical information provided by:: patient Social determinants that could affect healthcare access:: none Patient has the following chronic illnesses:: Long list of complaints and diagnoses most of which are nonlethal How is presenting disease/condition affected by chronic disease/condition?: u neffected by Evaluation data The following diagnostics were reviewed and interpreted by me:: lab results and radiology exam(s) Lab and/or radiology exams considered but not ordered:: CBC shows leukocytosis of 12.7 no anemia thrombocytopenia CMP shows no significant electrolyte imbalances renal impairment transaminitis or T. bili elevation Lipase 51 Interpretation Summary: Prolapsed uterus prolapsed rectum Medications Medications considered but not ordered:: None Medication administrations:: Medication Administration History Discontinued Medications Hydrocodone Bitart/Acetaminophen (Hydrocodone/Apap 5/325 Tablet) 1 tab PO X1 ONE Stop: 05/02/24 13:48 Last Admin: 05/02/24 13:52 Dose: 1 tab Documented By: JACOB Hydrocodone Bitart/Acetaminophen (Hydrocodone/Apap 5/325 Tablet) 1 tab PO X1 ONE Stop: 05/02/24 18:04 Last Admin: 05/02/24 18:14 Dose: 1 tab Documented By: SONIA None Consultations Consultation(s) initiated? (list below): No Diagnosis Differential Diagnosis ED Complaint MDM: Prolapsed uterus prolapsed prolapsed rectum no prolapse bladder Most likely diagnosis given after review of the tests above:: Rectal and vaginal prolapse Admission Indicated Admission indicated?: not indicated Explain why admission is indicated or not indicated:: Stable for outpatient follow-up Admission Request Was there a request for admission?: No Disposition Plan Disposition Plan: Discharge Discharge Attestation Discharge Attestation: The patient and all family members were given an opportunity to ask questions and understood the discharge instructions. Discharge instructions specifically effects, indications for sooner follow up or return to the emergency department, and the expected course of current diagnosis. Patient condition: Stable Medical Decision Making Differential Diagnosis Differential Diagnosis: Prolapsed uterus prolapsed prolapsed rectum no prolapse bladder Lab Data 05/02/24 13:54 05/02/24 13:54 Labs: Lab Results 05/02/24 05/02/24 Range/Units 13:53 13:54 WBC 12.7 H (3.6-11.0) Thou/mm3 RBC 3.75 L (4.00-5.20) Miln/mm3 Hgb 12.4 (12.0-16.0) g/dL Hct 39.3 (36.0-46.0) % MCV 105 H (80-100) fL MCH 33.1 (25.0-35.0) pg MCHC 31.6 (31.0-37.0) g/dl RDW Std Deviation 54.8 H (36.4-46.3) fL Plt Count 363 D (140-440) Thou/mm3 Neut % (Auto) 72 (37-80) % Lymph % (Auto) 20 (10-50) % Rogers % (Auto) 7 (0-12) % Eos % (Auto) 1 (0-10) % Baso % (Auto) 1 (0-2.5) % Neut # (Auto) 9.1 H (1.8-7.7) Thou/mm3 Lymph # (Auto) 2.5 (1.0-4.8) Thou/mm3 Rogers # (Auto) 0.8 (0.0-0.8) Thou/mm3 Eos # (Auto) 0.1 (0.0-0.5) Thou/mm3 Baso # (Auto) 0.1 (0.0-0.2) Thou/mm3 Immature Gran # (Auto) 0.06 H (0.00-0.00) Thou/mm3 Absolute Nucleated RBC 0.00 (0.00-0.00) Thou/mm3 Immature Gran % 1 H (0-0) % Nucleated RBC % 0 (0) /100 WBC Sodium 136 (136-145) mMol/L Potassium 4.7 (3.4-5.1) mMol/L Chloride 103 (98-107) mMol/L Carbon Dioxide 27.3 (20.0-31.0) mMol/L Anion Gap 6 L (7-16) BUN 10 (9-23) mg/dL Creatinine 1.2 (0.6-1.3) mg/dL Estim Creat Clear Calc 43.4 L (>60) mL/min eGFR 52 L (60 - ) See Note BUN/Creatinine Ratio 8 L (12-20) Ratio Glucose 88 (74-106) mg/dL Calculated Osmolality 269 L (275-295) Calcium 9.6 (8.3-10.6) mg/dL Corrected Calcium 9.6 (8.5-10.1) mg/dL Total Bilirubin 0.2 L (0.3-1.2) mg/dL AST 32 (0-34) U/L ALT 19 (10-49) U/L Alkaline Phosphatase 96 (46-116) U/L Total Protein 7.5 (5.7-8.2) gm/dL Albumin 4.8 (3.4-4.8) gm/dL Globulin 2.7 (2.3-3.5) gm/dL Albumin/Globulin Ratio 1.8 (1.2-2.2) Lipase 51 (12-53) U/L Ur Collection Type Clean Catch Urine Color Lt-Yellow (Lt Yel-Yel) Urine Clarity Clear (Clear/Hazy) Urine pH 6.5 (5.0-7.0) Ur Specific [place] 1.007 (1.001-1.035) Urine Protein Negative (Neg - Trace) Urine Glucose (UA) Negative (Negative) Urine Ketones Negative (Negative) Urine Blood Negative (Negative) Urine Nitrite Negative (Negative) Urine Bilirubin Negative (Negative) Urine Urobilinogen (Auto) Negative (0.0-1.0) mg/dL Ur Leukocyte Esterase Negative (Negative) Urine RBC 1 (0-3) /hpf Urine WBC 1 (0-5) /hpf Ur Squamous Epith Cells 2 (0-5) /hpf Urine Bacteria 2+ A (None) Ur Culture Indicated? Yes Discharge Plan Plan Patient Disposition: HOME (Self Care) Patient condition on transfer: Stable Prescriptions/Referrals Prescriptions/Med Rec: New meloxicam 7.5 mg tablet 7.5 mg PO QDAY Qty: 10 0RF No Action ziprasidone HCl [Geodon] 80 mg Capsule 80 mg PO BID venlafaxine 75 mg Tablet 75 mg PO TID acetaminophen [Tylenol Extra Strength] 500 mg tablet 1,000 mg PO Q6H PRN (Reason: fever or pain) Qty: 30 0RF Percogesic 12.5-325 mg tablet 1 tab PO BID Qty: 7 0RF Xarelto 20 mg Tablet 20 mg PO QDAY Rx Instructions: must administer with evening meal donepezil [Aricept] 5 mg Tablet 5 mg PO QDAY famotidine 20 mg Tablet 20 mg PO QDAY levothyroxine 150 mcg Tablet 150 mcg PO QDAY docusate sodium 100 mg Capsule PO lisinopril 10 mg tablet 10 mg PO QDAY Qty: 30 0RF ferrous sulfate [FeroSul] 325 mg (65 mg iron) tablet 325 mg PO BID Patient Comments: TAKE ONE TABLET BY MOUTH WITH ORANGE JUICE TWICE DAILY VITAMIN lamotrigine 25 mg tablet 50 mg PO HS Patient Comments: TAKE TWO TABLETS BY MOUTH EVERY DAY tizanidine 2 mg tablet 2 mg PO Q12HR PRN (Reason: Muscle Spasm) Patient Comments: TAKE ONE TABLET BY MOUTH EVERY 12 hours NEEDED FOR MUSCLE spasm DO not exceed THREE doses in 24 hours clonazepam 1 mg tablet 1 mg PO BID Patient Comments: TAKE ONE TABLET BY MOUTH TWICE DAILY FOR ANXIETY docusate sodium [Stool Softener] 250 mg Capsule 250 mg PO HSPRN PRN (Reason: Constipation) atorvastatin 40 mg tablet 40 mg PO HS Patient Comments: TAKE ONE TABLET BY MOUTH AT BEDTIME FOR CHOLESTEROL cetirizine 10 mg tablet 10 mg PO DAILY PRN (Reason: Allergy Symptoms) Patient Comments: TAKE ONE TABLET BY MOUTH EVERY DAY NEEDED FOR ALLERGY potassium chloride 10 mEq tablet extended release 10 meq PO DAILY Patient Comments: TAKE ONE TABLET BY MOUTH EVERY DAY WITH FOOD pregabalin 75 mg capsule 75 mg PO TID PRN (Reason: Pain) Patient Comments: TAKE ONE CAPSULE BY MOUTH THREE TIMES DAILY NEEDED FOR PAIN clopidogrel 75 mg tablet 75 mg PO DAILY Patient Comments: TAKE ONE TABLET BY MOUTH EVERY DAY FOR THE HEART hydrocodone-acetaminophen 10-325 mg Tablet 1 tab PO TID PRN (Reason: pain) Referrals: Grant Perez MD [Primary Care Provider] - In 1 week Lalito Mistry MD [Physician] - In 1 week Erika Alexander MD [Physician] - In 1 week Problem List Clinical Impression: Partial rectal prolapse, Incomplete prolapse of vaginal vault Patient/Caregiver Discharge Instructions Other Activity Instructions:: Take the medication or Tylenol for pain follow-up with your primary care doctor seek a referral for your own IV OB or the OB listed above and or your own surgeon or the 1 listed above. Education Materials: Pelvic Organ Prolapse, ED Rectal Prolapse Print Language: Albanian Stand Alone Forms: Fany Award Info., Patient Portal Info Letter PA/PIERCE Supervising Physician PA/CLINIC CMA Supervising Physician: Etienne Friedman ENP
--- NOTE | 2024-05-02 16:09 | PRELIM_ITS ---
CT scan of the abdomen and pelvis without intravenous contrast (axial sections with sagittal and jarret nal reformats) May 02, 2024 1456 hours Clinical History: Rule out possible vaginal prolapse Comp arison: Reference is made to the prior CT abdomen and pelvis report dated 09/01/2020. Prior images ar e not available for comparison at the time of interpretation.Findings:The lung bases are clear. There is mild wall thickening of the distal thoracic esophagus, which may be related to reflux esophagitis . The gallbladder is surgically absent. There is no biliary obstruction. Bilateral renal cortical cys ts are seen. A 1 cm exophytic hypodense lesion (24 HU) is seen in the right kidney. No evidence of re nal/ureteric calculus or hydroureteronephrosis. The liver, pancreas, spleen, adrenals are unremarkabl e on this non-contrast study. There is thickening versus underdistention of the stomach, descending/t ransverse duodenum and proximal jejunal loops in the left upper abdomen. No evidence of bowel obstruc tion. The appendix is not visualized. A moderate amount of fecal material is present in the colon. Th e urinary bladder is incompletely distended. The uterus is surgically absent. There appears to be sof t tissue density low lying in the pelvis (sagittal image 89/198 ). There is no free fluid or free air . Calcific densities are seen in the pelvis, likely representing phleboliths. The abdominal aorta and its branches demonstrate atheromatous calcification without evidence of aneurysm. Posterior spinal f usion is seen from L3 through L5 levels. Degenerative changes are identified in the spine. There is a n old fracture involving sacrococcygeal junction.Impression:1. No evidence of bowel obstruction or fr ee air.2. Thickening versus underdistention of the stomach, descending/transverse duodenum and proxim al jejunal loops in the left upper abdomen, the possibility of mild gastroenteritis cannot be exclude d in the appropriate clinical setting.3. Possible soft tissue density low lying in the pelvis, the po ssibility of vaginal prolapse cannot be entirely excluded on this non-contrast study.4. Other finding s as described above. Report Electronically Signed By: Constance Atkinson 05/02/2024 4:08:34 PM [EST]
--- NOTE | 2024-05-02 17:26 | XR_ITS ---
Examination: Abdomen sonogram, Limited Date and time of exam: May 02, 2024 1811 hrs. Indications: Pelvic pain beginning 3 days ago Technique: Real-time garcia scale transabdominal sonographic images of the upper abdomen obtained. Findings: No cystic or solid pelvic mass No free fluid in the pelvis No bladder mass or bladder calculi Impression: Negative examination
[2024-05-02 18:08] VITALS: BP 107/53; PULSE 70; RESP 16; TEMP 36.9; O2SAT 96
[2024-05-02 20:01] VITALS: BP 121/65; PULSE 87; RESP 16; TEMP 36.9; O2SAT 99
--- NOTE | 2024-05-02 20:38 | PRELIM_ITS ---
Pelvic ultrasound (transabdominal). May 02, 2024 at 1811 hours Clinical history: Pelvic pain x3 days. Check for vaginal prolapse. Hysterectomy.Technique: Real-time, grayscale, transabdominal pelvi c ultrasound was performed using Duplex scanning.Comparison: CT abdomen and pelvis performed earlier today.Findings:The uterus is surgically absent. Vaginal stripe is seen.The ovaries are not demonstrat ed.No evidence of pelvic mass.There is no free fluid on the submitted images. The urinary bladder is within normal limits.Impression:Status post hysterectomy. No pelvic mass or free fluid. Report Electr onically Signed By: Amaury South 05/02/2024 8:37:26 PM [EST]
== END 2024-05-02 20:02 | disposition home or self-care (01) ==
PROVIDERS: Nurse Practitioner Primary Care; Emergency Provider Emergency Medicine; PCP Student in an Organized Health Care Education/Training Program
DX: K62.3 Rectal prolapse (principal); N81.4 Uterovaginal prolapse, unspecified
CPT/HCPCS: 36415; 74176; 76705; 80053; 81001; 83690; 85025; 87086; 99284; A9270

== ENCOUNTER 2024-05-05 07:17 | Emergency (ER) | payer MEDICAID, SELFPAY ==
--- NOTE | 2024-05-05 07:41 | PC.NURSE ---
Call pt from lobby and outside no answer
[2024-05-05 07:53] VITALS: BP 101/63; PULSE 95; RESP 19; TEMP 36.4; O2SAT 99; BMI 33.1
[2024-05-05 08:32] LABS: Collection Type, Urine Clean Catch
[2024-05-05 08:39] LABS: Bilirubin,Urine Negative (Negative); Blood,Urine Negative (Negative); Clarity,Urine Clear (Clear/Hazy); Color,Urine Yellow (Lt Yel-Yel); Glucose, Urine Negative (Negative); Hyaline Casts,Urine < 1 /hpf (0-1); Ketones,Urine Negative (Negative); Leukocyte Esterase,Urine Negative (Negative); Nitrite,Urine Negative (Negative); PH,Urine 6.5 (5.0-7.0); Protein,Urine Trace (Neg - Trace); RBC,Urine 2 /hpf (0-3); Squamous Epithelial Cell,Urine 1 /hpf (0-5); Urobilinogen,Urine Negative mg/dL (0.0-1.0); WBC,Urine 1 /hpf (0-5)
--- NOTE | 2024-05-05 08:46 | PD.EDRME ---
Rapid Medical Screening Exam RME Arrival date/time: 05/05/24 07:17 This is a 63-year-old female who presented to the emergency department with complaints of dysuria for 3 days. Patient also requesting pain medication requesting narcotic tab. I have greeted and performed a focused initial assessment of this patient. Initial appropriate labs ordered at this time. A comprehensive ED assessment and evaluation of the patient and analysis of all test and completion of medical decision making process will be conducted by additional ED provider. Chief Complaint: Urogenital-Female Time Seen by Provider: 05/05/24 07:37 Vital signs: Vital Signs Temperature 97.6 F 05/05/24 07:53 Pulse Rate 95 05/05/24 07:53 Respiratory Rate 19 05/05/24 07:53 Blood Pressure 101/63 05/05/24 07:53 Pulse Oximetry (%) 99 05/05/24 07:53 Oxygen Delivery Method Room Air 05/05/24 07:53
[2024-05-05] MEDS: HYDROcodone/APAP 5/325 TABLET 1 TAB PO (09:55)
--- NOTE | 2024-05-22 07:34 | EDNOTE_ITS ---
<Statement entered by Soledad Rodriguez MD - 05/26/24 17:35> As co-signing physician, I was present and available for consult prn. I concur with the plan and care as documented by the midlevel provider. ED Back Injury Pain RME/HPI General Chief Complaint: Urogenital-Female Stated Complaint: Painful urination Time Seen by Provider: 05/05/24 07:37 Source: patient Arrival date/time: 05/05/24 07:17 This is a 63-year-old female who presented to the emergency department with complaints of dysuria for 3 days. Patient also requesting pain medication requesting narcotic tab reports she has history of chronic pain. No fever, cough, shortness of breath, chest pain, chills, abdominal pain, diarrhea, hematuria, hematochezia, melena, focal weakness, fall, blunt trauma, loss of consciousness, incontinence. Mode of arrival: ambulatory RME / HPI RME / HPI Narrative: 05/05/24 07:17 This is a 63-year-old female who presented to the emergency department with complaints of dysuria for 3 days. Patient also requesting pain medication requesting narcotic tab. I have greeted and performed a focused initial assessment of this patient. Initial appropriate labs ordered at this time. A comprehensive ED assessment and evaluation of the patient and analysis of all test and completion of medical decision making process will be conducted by additional ED provider. Related Data Home Medications ?Medication ?Instructions ?Recorded ?Confirmed ziprasidone HCl 80 mg capsule 80 mg PO BID 04/05/19 02/04/24 (Geodon) venlafaxine 75 mg tablet 75 mg PO TID 12/04/20 02/04/24 atorvastatin 40 mg tablet 40 mg PO HS 03/27/23 02/04/24 cetirizine 10 mg tablet 10 mg PO DAILY PRN Allergy Symptoms 03/27/23 04/16/23 clonazepam 1 mg tablet 1 mg PO BID 03/27/23 04/16/23 docusate sodium 250 mg capsule 250 mg PO HSPRN PRN Constipation 03/27/23 04/16/23 (Stool Softener) ferrous sulfate 325 mg (65 mg 325 mg PO BID 03/27/23 04/16/23 iron) tablet (FeroSul) lamotrigine 25 mg tablet 50 mg PO HS 03/27/23 02/04/24 potassium chloride 10 mEq 10 meq PO DAILY 03/27/23 04/16/23 tablet,extended release pregabalin 75 mg capsule 75 mg PO TID PRN Pain 03/27/23 02/04/24 tizanidine 2 mg tablet 2 mg PO Q12HR PRN Muscle Spasm 03/27/23 02/04/24 clopidogrel 75 mg tablet 75 mg PO DAILY 04/16/23 04/16/23 hydrocodone 10 mg-acetaminophen 1 tab PO TID PRN pain 04/17/23 02/04/24 325 mg tablet docusate sodium 100 mg capsule mg PO 02/04/24 donepezil 5 mg tablet (Aricept) 5 mg PO QDAY 02/04/24 02/04/24 famotidine 20 mg tablet 20 mg PO QDAY 02/04/24 02/04/24 levothyroxine 150 mcg tablet 150 mcg PO QDAY 02/04/24 02/04/24 rivaroxaban 20 mg tablet (Xarelto) 20 mg PO QDAY 02/04/24 02/04/24 Previous Rx's ?Medication ?Instructions ?Recorded acetaminophen 500 mg tablet 1,000 mg (2 x 500 mg) PO Q6H PRN 07/05/23 (Tylenol Extra Strength) fever or pain #30 tabs diphenhydramine 12.5 1 tab PO BID #7 tabs 01/19/24 mg-acetaminophen 325 mg tablet (Percogesic) lisinopril 10 mg tablet 10 mg PO QDAY #30 tabs 04/21/24 meloxicam 7.5 mg tablet 7.5 mg PO QDAY #10 tabs 05/02/24 Allergies Allergy/AdvReac Type Severity Reaction Status Date / Time diphenhydramine Allergy Severe ITCHING Verified 03/11/24 15:37 ketorolac Allergy Severe ITCHING Verified 03/11/24 15:37 Penicillins Allergy Severe ITCH Verified 03/11/24 15:37 sumatriptan succinate Allergy Severe ITCHING, Verified 03/11/24 15:37 VOMITING propranolol Allergy Unknown Verified 03/11/24 15:37 codeine AdvReac Severe Vomiting Verified 03/11/24 15:37 Review of Systems Review of Systems Systems Reviewed: All systems reviewed, normal except as documented Narrative Review of Systems: Gen: No fever, no chills, no weight loss EYES: No discharge, no visual changes, no pain HEENT: No ear pain, no congestion, no sore throat PULM: No shortness of breath, no cough, no congestion CV: No chest pain, no dyspnea on exertion, no palpitations GI: No nausea, no vomiting, no diarrhea, no pain, no constipation : No frequency, no urgency,? +mild dysuria Musc/skel: No joint pain, no back pain Skin: No rash? ED Exam Narrative Physical exam: General: Obese not in any acute distress, chronically ill-appearing Head normocephalic HEENT: Within acceptable limits Neck is supple nontender Chest equal chest rise nontender to palpation Respiratory: Clear to auscultation no wheezes crackles or rubs CV: Rate rhythm is regular no murmurs rubs or clicks Abdomen low center abdominal tenderness no reflexive guarding no rebound tender ness. No masses positive bowel sounds all 4 quadrants Back: No CVA tenderness no spinous process tenderness from cervical spine thoracic and lumbar spine Skin: Intact no petechiae rash induration ulceration or crepitus Extremities: Moving all extremity against resistance cap refill less than 2 seconds neurosensory intact. No edema in the lower extremities. Neuro: Awake alert oriented x3 Glascow coma 15 no focal deficits Course Quality Measures none Orders Category Date Time Status UA [Urinalysis] Stat Lab 05/05/24 08:19 Completed HYDROcodone*/APAP 5/325 [[place] 5/325] Med 05/05/24 09:13 Discontinued 1 tab PO X1 ONE Vital Signs Vital signs: Vital Signs Temperature 97.6 F 05/05/24 07:53 Pulse Rate 95 05/05/24 07:53 Respiratory Rate 19 05/05/24 07:53 Blood Pressure 101/63 05/05/24 07:53 Pulse Oximetry (%) 99 05/05/24 07:53 Oxygen Delivery Method Room Air 05/05/24 07:53 Back Pain / Injury Patient data External records reviewed:: [facility] [place] previous records Clinical information provided by:: patient Social determinants that could affect healthcare access:: none Patient has the following chronic illnesses:: yes How is presenting disease/condition affected by chronic disease/condition?: exacerbated by Evaluation data The following diagnostics were reviewed and interpreted by me:: lab results Lab and/or radiology exams considered but not ordered:: no Interpretation Summary: Urinalysis negative Medications / Prescriptions Medications or Prescriptions considered but not ordered:: Antibiotics however you are a clean Medication administrations:: Medication Administration History Discontinued Medications Hydrocodone Bitart/Acetaminophen (Hydrocodone/Apap 5/325 Tablet) 1 tab PO X1 ONE Stop: 05/05/24 09:14 Last Admin: 05/05/24 09:55 Dose: 1 tab Documented By: JOHN All medications administered and effective Consultations Consultation(s) initiated? (list below): No Diagnosis Differential diagnosis back pain/injury: lumbar radiculopathy, strain of lumbar region, thoracic back pain and other (UTI) Most likely diagnosis given after review of the tests above:: Chronic pain syndrome, dysuria Admission Indicated Admission indicated?: not indicated Admission Request Was there a request for admission?: No Disposition Plan Disposition Plan: Discharge Discharge Attestation Discharge Attestation: The patient and all family members were given an opportunity to ask questions and understood the discharge instructions. Discharge instructions specifically effects, indications for sooner follow up or return to the emergency department, and the expected course of current diagnosis. Patient condition: Stable Discharge Plan Plan Patient Disposition: HOME (Self Care) Patient condition on transfer: Stable Prescriptions/Referrals Prescriptions/Med Rec: No Action ziprasidone HCl [Geodon] 80 mg Capsule 80 mg PO BID venlafaxine 75 mg Tablet 75 mg PO TID acetaminophen [Tylenol Extra Strength] 500 mg tablet 1,000 mg PO Q6H PRN (Reason: fever or pain) Qty: 30 0RF Percogesic 12.5-325 mg tablet 1 tab PO BID Qty: 7 0RF Xarelto 20 mg Tablet 20 mg PO QDAY Rx Instructions: must administer with evening meal donepezil [Aricept] 5 mg Tablet 5 mg PO QDAY famotidine 20 mg Tablet 20 mg PO QDAY levothyroxine 150 mcg Tablet 150 mcg PO QDAY docusate sodium 100 mg Capsule PO lisinopril 10 mg tablet 10 mg PO QDAY Qty: 30 0RF meloxicam 7.5 mg tablet 7.5 mg PO QDAY Qty: 10 0RF ferrous sulfate [FeroSul] 325 mg (65 mg iron) tablet 325 mg PO BID Patient Comments: TAKE ONE TABLET BY MOUTH WITH ORANGE JUICE TWICE DAILY VITAMIN lamotrigine 25 mg tablet 50 mg PO HS Patient Comments: TAKE TWO TABLETS BY MOUTH EVERY DAY tizanidine 2 mg tablet 2 mg PO Q12HR PRN (Reason: Muscle Spasm) Patient Comments: TAKE ONE TABLET BY MOUTH EVERY 12 hours NEEDED FOR MUSCLE spasm DO not exceed THREE doses in 24 hours clonazepam 1 mg tablet 1 mg PO BID Patient Comments: TAKE ONE TABLET BY MOUTH TWICE DAILY FOR ANXIETY docusate sodium [Stool Softener] 250 mg Capsule 250 mg PO HSPRN PRN (Reason: Constipation) atorvastatin 40 mg tablet 40 mg PO HS Patient Comments: TAKE ONE TABLET BY MOUTH AT BEDTIME FOR CHOLESTEROL cetirizine 10 mg tablet 10 mg PO DAILY PRN (Reason: Allergy Symptoms) Patient Comments: TAKE ONE TABLET BY MOUTH EVERY DAY NEEDED FOR ALLERGY potassium chloride 10 mEq tablet extended release 10 meq PO DAILY Patient Comments: TAKE ONE TABLET BY MOUTH EVERY DAY WITH FOOD pregabalin 75 mg capsule 75 mg PO TID PRN (Reason: Pain) Patient Comments: TAKE ONE CAPSULE BY MOUTH THREE TIMES DAILY NEEDED FOR PAIN clopidogrel 75 mg tablet 75 mg PO DAILY Patient Comments: TAKE ONE TABLET BY MOUTH EVERY DAY FOR THE HEART hydrocodone-acetaminophen 10-325 mg Tablet 1 tab PO TID PRN (Reason: pain) Referrals: Marley Salas MD [Primary Care Provider] - In 1 week Problem List Clinical Impression: Dysuria Patient/Caregiver Discharge Instructions Discharge Activity: activity as tolerated Education Materials: ED Dysuria, Uncertain Cause (Adult) Additional Instructions: Your urinalysis is negative for any infection. Follow-up with your doctor or clinic 24 to 48 hours for follow-up care. Return to the emergency department this any worsening symptoms change in cond ition. Print Language: Turkish Stand Alone Forms: Fany Award Info., Patient Portal Info Letter PA/PIERCE Supervising Physician RAMESH/PIERCE Supervising Physician: Dr. Joaquin
== END 2024-05-05 09:59 | disposition home or self-care (01) ==
PROVIDERS: Nurse Practitioner Primary Care; Emergency Provider Emergency Medicine; PCP Family Medicine
DX: R30.0 Dysuria (principal)
CPT/HCPCS: 81001; 99283; A9270

== ENCOUNTER 2024-05-31 13:39 | Emergency (ER) | payer MEDICAID, SELFPAY ==
[2024-05-31 13:41] VITALS: BMI 33.1
[2024-05-31 13:57] VITALS: BP 112/66; PULSE 72; RESP 17; TEMP 36.6; O2SAT 99
--- NOTE | 2024-05-31 14:01 | XR_ITS ---
Examination: CT abdomen and pelvis without contrast. Coronal 3-D reconstructions. Sagittal 2-D reconstructions. Date and time of exam:May 31, 2024 1416 hours Comparison May 02, 2024 INDICATIONS: Lower abdominal pain beginning 3 days ago CTDI: vol (mGy): 10.9 DLP: (mGycm): 630 Technique: Axial images of the abdomen have been obtained, 3 mm slice thickness Intravenous contrast material has not been administered. Low dose protocols were performed. One or more of the following dose reduction techniques were used; automated exposure control, adjustment of the mA and/or KV according to patient size, use of iterative reconstruction technique. Findings: No focal liver or splenic lesions Absent gallbladder No pancreatic or adrenal mass Multiple bilateral renal cysts Moderate bilateral renal parenchymal scar formation 2 mm soft calcification lower pole right kidney image 109 No hydronephrosis or ureteral calculi Abdominal aortic calcification no aneurysmal dilatation No pericecal inflammatory change No bowel obstruction No diverticulitis No bladder mass or bladder calculi Absent uterus Rectal vaginal prolapse Severe osteopenia Transpedicular lumbar fusion L3-L5 with satisfactory alignment Advanced degenerative disc disease L2-L3 L1-L2 Moderate narrowing hip joints IMPRESSION: 2 mm soft calcification lower pole right kidney, no hydronephrosis or ureteral calculi Moderate bilateral renal parenchymal scar formation No bowel obstruction Pelvic floor prolapse
--- NOTE | 2024-05-31 14:02 | PD.EDRME ---
Rapid Medical Screening Exam RME Arrival date/time: 05/31/24 13:39 63-year-old female presents to the emergency department complaints of pelvic pain and dysuria Chief Complaint: Urogenital-Female Time Seen by Provider: 05/31/24 13:59 Vital signs: Vital Signs Temperature 97.8 F 05/31/24 13:57 Pulse Rate 72 05/31/24 13:57 Respiratory Rate 17 05/31/24 13:57 Blood Pressure 112/66 05/31/24 13:57 Pulse Oximetry (%) 99 05/31/24 13:57 Oxygen Delivery Method Room Air 05/31/24 13:57
[2024-05-31 15:57] LABS: Basophils # (Auto) 0.1 Thou/mm3 (0.0-0.2); Basophils % (Auto) 1 % (0-2.5); Eosinophils # (Auto) 0.1 Thou/mm3 (0.0-0.5); Eosinophils % (Auto) 1 % (0-10); Hematocrit 34.4 % (36.0-46.0); Hemoglobin 11.6 g/dL (12.0-16.0); Immature Granulocytes % (Auto) 1 % (0-0); Immature Granulocytes Auto 0.06 Thou/mm3 (0.00-0.00); Lymphocytes # (Auto) 1.9 Thou/mm3 (1.0-4.8); Lymphocytes % (Auto) 18 % (10-50); Mean Corpuscular HGB Conc 33.7 g/dl (31.0-37.0); Mean Corpuscular Hemoglobin 33.1 pg (25.0-35.0); Mean Corpuscular Volume 98 fL (80-100); Monocytes # (Auto) 0.8 Thou/mm3 (0.0-0.8); Monocytes % (Auto) 7 % (0-12); Neutrophils # (Auto) 7.9 Thou/mm3 (1.8-7.7); Neutrophils % (Auto) 73 % (37-80); Nucleated Red Blood Cell % 0 /100 WBC (0); Platelet Count 292 Thou/mm3 (140-440); RDW Standard Deviation 48.5 fL (36.4-46.3); White Blood Count 10.9 Thou/mm3 (3.6-11.0)
[2024-05-31 16:29] LABS: Alanine Aminotransferase 14 U/L (10-49); Albumin, Serum 4.5 gm/dL (3.4-4.8); Albumin/Globulin Ratio 1.6 (1.2-2.2); Alkaline Phosphatase 82 U/L (46-116); Anion Gap 7 (7-16); Aspartate Amino Transferase 18 U/L (0-34); BUN/Creatinine Ratio 15 Ratio (12-20); Bilirubin,Total 0.2 mg/dL (0.3-1.2); Blood Urea Nitrogen 18 mg/dL (9-23); Calcium 9.4 mg/dL (8.3-10.6); Calcium (Corrected) 9.4 mg/dL (8.5-10.1); Carbon Dioxide 24.7 mMol/L (20.0-31.0); Chloride 102 mMol/L (98-107); Creatinine (Component) 1.2 mg/dL (0.6-1.3); Estimated Creatinine Clearance 43.3 mL/min (>60); Globulin 2.8 gm/dL (2.3-3.5); Glucose 120 mg/dL (74-106); Lipase 47 U/L (12-53); Osmolality,Calculated 271 (275-295); Potassium 4.3 mMol/L (3.4-5.1); Sodium 134 mMol/L (136-145); Total Protein 7.3 gm/dL (5.7-8.2); eGFR 52 See Note
[2024-05-31 16:32] LABS: Collection Type, Urine Clean Catch; RBC,Urine 0 /hpf (0-3); WBC,Urine 0 /hpf (0-5)
[2024-05-31 16:43] LABS: Bacteria,Urine 1+; Bilirubin,Urine Negative (Negative); Blood,Urine Negative (Negative); Clarity,Urine Clear (Clear/Hazy); Color,Urine Colorless (Lt Yel-Yel); Glucose, Urine Negative (Negative); Ketones,Urine Negative (Negative); Leukocyte Esterase,Urine Negative (Negative); Nitrite,Urine Negative (Negative); PH,Urine 6.5 (5.0-7.0); Protein,Urine Negative (Neg - Trace); Specific Gravity,Urine 1.005 (1.001-1.035); Squamous Epithelial Cell,Urine 1 /hpf (0-5); Urobilinogen,Urine Negative mg/dL (0.0-1.0)
[2024-05-31 16:57] LABS: Amphetamine/Methamp Scrn,U Negative (Negative); Barbiturate Screen,Urine Negative (Negative); Benzodiazepines Screen,Urine Negative (Negative); Benzoylecgonine Screen, Ur Negative (Negative); Fentanyl Screen,Urine Negative (Negative); Opiate Screen,Urine Negative (Negative); THC Screen,Urine Positive (Negative)
[2024-05-31 17:00] LABS: Culture Indicated,Urine Yes
[2024-05-31 17:39] VITALS: BP 112/76; PULSE 78; RESP 20; TEMP 36.7; O2SAT 97
--- NOTE | 2024-05-31 21:04 | PC.NURSE ---
[facility]
--- NOTE | 2024-05-31 23:01 | PC.NURSE ---
CALLED PT IN ER LOBBY AND OUTSIDE OF ER AND NO ANSWER AT THIS TIME
--- NOTE | 2024-05-31 23:16 | PC.NURSE ---
N/A FROM [facility]
== END 2024-05-31 23:18 | disposition left against medical advice (07) ==
PROVIDERS: Nurse Practitioner Primary Care; Emergency Provider Emergency Medicine; PCP Family Medicine
DX: R10.2 Pelvic and perineal pain (principal); R30.0 Dysuria; Z53.29 Procedure and treatment not carried out because of patient's decision for other reasons
CPT/HCPCS: 36415; 74176; 80053; 80307; 81001; 83690; 85025; 87086; 99281

== ENCOUNTER 2024-06-01 13:04 | Emergency (ER) | payer MEDICAID, SELFPAY ==
[2024-06-01 13:26] VITALS: BP 113/71; PULSE 100; RESP 18; TEMP 36.6; O2SAT 99; BMI 32.7
--- NOTE | 2024-06-01 13:37 | EDNOTE_ITS ---
ED Female Urogenital RME/HPI General Chief complaint: Urogenital-Female Stated complaint: bladder pain x4 days Time Seen by Provider: 06/01/24 13:33 Arrival date/time: 06/01/24 13:04 63-year-old female presents emergency department with complaints of bladder pain patient reports previously diagnosed with bladder and rectal prolapse patient awaiting specialist appointment patient requesting prescription for pain medication Limitations: no limitations Related Data Home Medications ?Medication ?Instructions ?Recorded ?Confirmed ziprasidone HCl 80 mg capsule 80 mg PO BID 04/05/19 02/04/24 (Geodon) venlafaxine 75 mg tablet 75 mg PO TID 12/04/20 02/04/24 atorvastatin 40 mg tablet 40 mg PO HS 03/27/23 02/04/24 cetirizine 10 mg tablet 10 mg PO DAILY PRN Allergy Symptoms 03/27/23 04/16/23 clonazepam 1 mg tablet 1 mg PO BID 03/27/23 04/16/23 docusate sodium 250 mg capsule 250 mg PO HSPRN PRN Constipation 03/27/23 04/16/23 (Stool Softener) ferrous sulfate 325 mg (65 mg 325 mg PO BID 03/27/23 04/16/23 iron) tablet (FeroSul) lamotrigine 25 mg tablet 50 mg PO HS 03/27/23 02/04/24 potassium chloride 10 mEq 10 meq PO DAILY 03/27/23 04/16/23 tablet,extended release pregabalin 75 mg capsule 75 mg PO TID PRN Pain 03/27/23 02/04/24 tizanidine 2 mg tablet 2 mg PO Q12HR PRN Muscle Spasm 03/27/23 02/04/24 clopidogrel 75 mg tablet 75 mg PO DAILY 04/16/23 04/16/23 hydrocodone 10 mg-acetaminophen 1 tab PO TID PRN pain 04/17/23 02/04/24 325 mg tablet docusate sodium 100 mg capsule mg PO 02/04/24 donepezil 5 mg tablet (Aricept) 5 mg PO QDAY 02/04/24 02/04/24 famotidine 20 mg tablet 20 mg PO QDAY 02/04/24 02/04/24 levothyroxine 150 mcg tablet 150 mcg PO QDAY 02/04/24 02/04/24 rivaroxaban 20 mg tablet (Xarelto) 20 mg PO QDAY 02/04/24 02/04/24 Previous Rx's ?Medication ?Instructions ?Recorded acetaminophen 500 mg tablet 1,000 mg (2 x 500 mg) PO Q6H PRN 07/05/23 (Tylenol Extra Strength) fever or pain #30 tabs diphenhydramine 12.5 1 tab PO BID #7 tabs 01/19/24 mg-acetaminophen 325 mg tablet (Percogesic) lisinopril 10 mg tablet 10 mg PO QDAY #30 tabs 04/21/24 meloxicam 7.5 mg tablet 7.5 mg PO QDAY #10 tabs 05/02/24 hydrocodone 5 mg-acetaminophen 325 1 tab PO BID PRN pain #10 tabs 06/01/24 mg tablet Allergies Allergy/AdvReac Type Severity Reaction Status Date / Time diphenhydramine Allergy Severe ITCHING Verified 06/01/24 13:06 ketorolac Allergy Severe ITCHING Verified 06/01/24 13:06 Penicillins Allergy Severe ITCH Verified 06/01/24 13:06 sumatriptan succinate Allergy Severe ITCHING, Verified 06/01/24 13:06 VOMITING propranolol Allergy Unknown Verified 06/01/24 13:06 codeine AdvReac Severe Vomiting Verified 06/01/24 13:06 Review of Systems Review of Systems Systems Reviewed: All systems reviewed, normal except as documented Constitutional Constitutional: Reports system reviewed and no additional complaints, except as documented, Denies fever(s) and Denies headache(s) Eyes Eyes: Reports system reviewed and no additional complaints, except as documented and Denies blurry vision ENT Ears, Nose, Mouth, and Throat: Reports system reviewed and no additional complaints, except as documented, Denies headache(s), Denies nasal congestion and Denies nasal discharge Cardiovascular Cardiovascular: Reports system reviewed and no additional complaints, except as documented, Denies chest pain and Denies dyspnea Respiratory Respiratory: Reports system reviewed and no additional complaints, except as documented, Denies chest congestion, Denies cough and Denies dyspnea Gastrointestinal Gastrointestinal: Reports system reviewed and no additional complaints, except as documented and Denies abdominal pain Genitourinary Genitourinary: Reports system reviewed and no additional complaints, except as documented and Reports other (Pelvic pain) Integumentary/Breasts Skin/Breast: Reports system reviewed and no additional complaints, except as documented and Denies rash Neurologic Neurologic: Reports system reviewed and no additional complaints, except as documented, Reports as per HPI and Denies headache(s) Past Medical History Past Medical History NEUROLOGIC: Negative Neurological Disorders CARDIAC: Negative Cardiac Disorders ED Exam General Limitations: Present no limitations General appearance: Present alert and in no apparent distress Head Head exam: Present atraumatic, normocephalic and normal inspection Eye Eye exam: Present normal appearance, PERRL and EOMI; Absent conjunctival injection ENT ENT exam: Present normal exam, normal oropharynx and mucous membranes moist Neck Neck exam: Present normal inspection, full ROM and trachea midline Chest Chest inspection: Present normal inspection and symmetric chest wall rise Respiratory Respiratory exam: Present normal lung sounds bilaterally; Absent respiratory distress Cardiovascular Cardiovascular exam: Present regular rate, normal rhythm and normal heart sounds Abdominal Exam Abdominal exam: Present soft and normal bowel sounds; Absent distention, tenderness, guarding, rebound or rigidity External exam: Present other (Prolapse vaginal) Extremities Exam Extremities exam: Present normal inspection and full ROM; Absent tenderness Back Exam Back exam: Present normal inspection and full ROM Neurological Exam Neurological exam: Present alert, oriented X3, CN II-XII intact, normal gait and reflexes normal; Absent motor sensory deficit Psychiatric Psychiatric exam: Present normal affect and normal mood Skin Skin exam: Present warm, dry, intact and normal color; Absent rash Course Quality Measures none Orders Category Date Time Status HYDROcodone*/APAP 5/325 [[place] 5/325] Med 06/01/24 13:37 Discontinued 1 tab PO X1 ONE Vital Signs Vital signs: Vital Signs Temperature 98 F 06/01/24 13:26 Pulse Rate 100 06/01/24 13:26 Respiratory Rate 18 06/01/24 13:26 Blood Pressure 113/71 06/01/24 13:26 Pulse Oximetry (%) 99 06/01/24 13:26 Oxygen Delivery Method Room Air 06/01/24 13:26 o2 sat 99% r/a wnl Urogenital - Female MDM Narrative MDM Narrative:: 63-year-old female presents emergency department with complaints of bladder pain patient reports previously diagnosed with bladder and rectal prolapse patient awaiting specialist appointment patient requesting prescription for pain medication On exam patient does not appear ill or toxic in no acute distress I reviewed the patient's lab work and CT scan from yesterday Explained to the patient she is to follow-up with specialist as discussed for worsening symptoms return immediately Patient given [place] for pain and discharged home with [place] For emergent concerns patient instructed to return immediately Patient data External records reviewed:: [facility] previous records Clinical information provided by:: none Social determinants that could affect healthcare access:: none Patient has the following chronic illnesses:: None How is presenting disease/condition affected by chronic disease/condition?: no chronic disease Evaluation data The following diagnostics were reviewed and interpreted by me:: lab results and radiology exam(s) Lab and/or radiology exams considered but not ordered:: Labs and radiology ordered yesterday Interpretation Summary: Reviewed by me Medications / Prescriptions Medications or Prescriptions considered but not ordered:: Given Medication administrations:: Medication Administration History Discontinued Medications Hydrocodone Bitart/Acetaminophen (Hydrocodone/Apap 5/325 Tablet) 1 tab PO X1 ONE Stop: 06/01/24 13:38 Last Admin: 06/01/24 13:57 Dose: 1 tab Documented By: GM Given Consultations Consultation(s) initiated? (list below): No Diagnosis Urogenital Female Differential Diagnosis: urinary tract infection, cystitis and other (Rectal prolapse, vaginal prolapse) Most likely diagnosis given after review of the tests above:: Vaginal prolapse Admission Indicated Admission indicated?: not indicated Admission Request Was there a request for admission?: No Disposition Plan Disposition Plan: Discharge Discharge Attestation Discharge Attestation: The patient and all family members were given an opportunity to ask questions and understood the discharge instructions. Discharge instructions specifically effects, indications for sooner follow up or return to the emergency department, and the expected course of current diagnosis. Patient condition: Stable Discharge Plan Plan Patient Disposition: HOME (Self Care) Disposition Comment: Stable Prescriptions/Referrals Prescriptions/Med Rec: New hydrocodone-acetaminophen 5-325 mg tablet 1 tab PO BID MDD 10 PRN (Reason: pain) Qty: 10 0RF No Action ziprasidone HCl [Geodon] 80 mg Capsule 80 mg PO BID venlafaxine 75 mg Tablet 75 mg PO TID acetaminophen [Tylenol Extra Strength] 500 mg tablet 1,000 mg PO Q6H PRN (Reason: fever or pain) Qty: 30 0RF Percogesic 12.5-325 mg tablet 1 tab PO BID Qty: 7 0RF Xarelto 20 mg Tablet 20 mg PO QDAY Rx Instructions: must administer with evening meal donepezil [Aricept] 5 mg Tablet 5 mg PO QDAY famotidine 20 mg Tablet 20 mg PO QDAY levothyroxine 150 mcg Tablet 150 mcg PO QDAY docusate sodium 100 mg Capsule PO lisinopril 10 mg tablet 10 mg PO QDAY Qty: 30 0RF meloxicam 7.5 mg tablet 7.5 mg PO QDAY Qty: 10 0RF ferrous sulfate [FeroSul] 325 mg (65 mg iron) tablet 325 mg PO BID Patient Comments: TAKE ONE TABLET BY MOUTH WITH ORANGE JUICE TWICE DAILY VITAMIN lamotrigine 25 mg tablet 50 mg PO HS Patient Comments: TAKE TWO TABLETS BY MOUTH EVERY DAY tizanidine 2 mg tablet 2 mg PO Q12HR PRN (Reason: Muscle Spasm) Patient Comments: TAKE ONE TABLET BY MOUTH EVERY 12 hours NEEDED FOR MUSCLE spasm DO not exceed THREE doses in 24 hours clonazepam 1 mg tablet 1 mg PO BID Patient Comments: TAKE ONE TABLET BY MOUTH TWICE DAILY FOR ANXIETY docusate sodium [Stool Softener] 250 mg Capsule 250 mg PO HSPRN PRN (Reason: Constipation) atorvastatin 40 mg tablet 40 mg PO HS Patient Comments: TAKE ONE TABLET BY MOUTH AT BEDTIME FOR CHOLESTEROL cetirizine 10 mg tablet 10 mg PO DAILY PRN (Reason: Allergy Symptoms) Patient Comments: TAKE ONE TABLET BY MOUTH EVERY DAY NEEDED FOR ALLERGY potassium chloride 10 mEq tablet extended release 10 meq PO DAILY Patient Comments: TAKE ONE TABLET BY MOUTH EVERY DAY WITH FOOD pregabalin 75 mg capsule 75 mg PO TID PRN (Reason: Pain) Patient Comments: TAKE ONE CAPSULE BY MOUTH THREE TIMES DAILY NEEDED FOR PAIN clopidogrel 75 mg tablet 75 mg PO DAILY Patient Comments: TAKE ONE TABLET BY MOUTH EVERY DAY FOR THE HEART hydrocodone-acetaminophen 10-325 mg Tablet 1 tab PO TID PRN (Reason: pain) Problem List Clinical Impression: Prolapse of vaginal wall, Rectal prolapse Patient/Caregiver Discharge Instructions Additional Instructions: Please follow up with your primary care doctor in the next 24-48hrs for any worsening symptoms return here immediately Print Language: Tristanian Stand Alone Forms: Fany Award Info., Patient Portal Info Letter PA/POWERHOUSE MECHANIC APPRENTICE Supervising Physician PA/POWERHOUSE MECHANIC APPRENTICE Supervising Physician: Dr ro
[2024-06-01] MEDS: HYDROcodone/APAP 5/325 TABLET 1 TAB PO (13:57)
== END 2024-06-01 13:57 | disposition home or self-care (01) ==
LOC: SERX 13:59
PROVIDERS: Emergency Provider Emergency Medicine; PCP Family Medicine
DX: K62.3 Rectal prolapse (principal); N81.10 Cystocele, unspecified
CPT/HCPCS: 99283; A9270

== ENCOUNTER 2024-06-11 12:18 | Emergency (ER) | payer MEDICAID, SELFPAY ==
[2024-06-11 12:18] VITALS: BMI 50.0
[2024-06-11 12:30] VITALS: BP 100/62; PULSE 68; RESP 18; TEMP 36.6; O2SAT 99
--- NOTE | 2024-06-11 12:37 | PD.EDABDPN ---
ED Abdominal Pain RME/HPI General Chief Complaint: Abdominal Pain Stated complaint: BLADDER SWOLLEN Time seen by provider: 06/11/24 12:28 Arrival date/time: 06/11/24 12:18 This is 63 year old female with a chronic history of pelvic floor prolapse. Patient states that she is post to see a specialist but is currently waiting on an appointment. Patient reports that she was taking [place] for pain and is ran out. Patient states that she went to go see her JET INSPECTOR yesterday and they would not give her any more pain medication. Patient reports no new issues. Patient denies any urinary symptoms. Patient denies any fever, chills, nausea, vomiting, diarrhea. Patient denies any new symptoms. Related Data Home Medications ?Medication ?Instructions ?Recorded ?Confirmed ziprasidone HCl 80 mg capsule 80 mg PO BID 04/05/19 02/04/24 (Geodon) venlafaxine 75 mg tablet 75 mg PO TID 12/04/20 02/04/24 atorvastatin 40 mg tablet 40 mg PO HS 03/27/23 02/04/24 cetirizine 10 mg tablet 10 mg PO DAILY PRN Allergy Symptoms 03/27/23 04/16/23 clonazepam 1 mg tablet 1 mg PO BID 03/27/23 04/16/23 docusate sodium 250 mg capsule 250 mg PO HSPRN PRN Constipation 03/27/23 04/16/23 (Stool Softener) ferrous sulfate 325 mg (65 mg 325 mg PO BID 03/27/23 04/16/23 iron) tablet (FeroSul) lamotrigine 25 mg tablet 50 mg PO HS 03/27/23 02/04/24 potassium chloride 10 mEq 10 meq PO DAILY 03/27/23 04/16/23 tablet,extended release pregabalin 75 mg capsule 75 mg PO TID PRN Pain 03/27/23 02/04/24 tizanidine 2 mg tablet 2 mg PO Q12HR PRN Muscle Spasm 03/27/23 02/04/24 clopidogrel 75 mg tablet 75 mg PO DAILY 04/16/23 04/16/23 hydrocodone 10 mg-acetaminophen 1 tab PO TID PRN pain 04/17/23 02/04/24 325 mg tablet docusate sodium 100 mg capsule mg PO 02/04/24 donepezil 5 mg tablet (Aricept) 5 mg PO QDAY 02/04/24 02/04/24 famotidine 20 mg tablet 20 mg PO QDAY 02/04/24 02/04/24 levothyroxine 150 mcg tablet 150 mcg PO QDAY 02/04/24 02/04/24 rivaroxaban 20 mg tablet (Xarelto) 20 mg PO QDAY 02/04/24 02/04/24 Previous Rx's ?Medication ?Instructions ?Recorded acetaminophen 500 mg tablet 1,000 mg (2 x 500 mg) PO Q6H PRN 07/05/23 (Tylenol Extra Strength) fever or pain #30 tabs diphenhydramine 12.5 1 tab PO BID #7 tabs 01/19/24 mg-acetaminophen 325 mg tablet (Percogesic) lisinopril 10 mg tablet 10 mg PO QDAY #30 tabs 04/21/24 meloxicam 7.5 mg tablet 7.5 mg PO QDAY #10 tabs 05/02/24 hydrocodone 5 mg-acetaminophen 325 1 tab PO BID PRN pain #10 tabs 06/01/24 mg tablet Allergies Allergy/AdvReac Type Severity Reaction Status Date / Time diphenhydramine Allergy Severe ITCHING Verified 06/11/24 12:24 ketorolac Allergy Severe ITCHING Verified 06/11/24 12:24 Penicillins Allergy Severe ITCH Verified 06/11/24 12:24 sumatriptan succinate Allergy Severe ITCHING, Verified 06/11/24 12:24 VOMITING propranolol Allergy Unknown Verified 06/11/24 12:24 codeine AdvReac Severe Vomiting Verified 06/11/24 12:24 Review of Systems Review of Systems Systems Reviewed: All systems reviewed, normal except as documented Past Medical History Past Medical History NEUROLOGIC: Negative Neurological Disorders CARDIAC: Negative Cardiac Disorders ED Exam General General appearance: Present alert and in no apparent distress (in a scooter ) Head Head exam: Present atraumatic Eye Eye exam: Present normal appearance, PERRL and EOMI ENT ENT exam: Present normal oropharynx and mucous membranes moist Neck Neck exam: Present normal inspection, full ROM and trachea midline Chest Chest inspection: Present normal inspection and symmetric chest wall rise Respiratory Respiratory exam: Present normal lung sounds bilaterally Cardiovascular Cardiovascular exam: Present regular rate and normal heart sounds Abdominal Exam Abdominal exam: Present soft Expanded Exam OB exam: Present other (pt refused pelvic exam ) Extremities Exam Extremities exam: Present normal inspection and full ROM Back Exam Back exam: Present normal inspection and full ROM Neurological Exam Neurological exam: Present alert and oriented X3 Psychiatric Psychiatric exam: Present normal affect and normal mood Skin Skin exam: Present warm, dry, intact and normal color Course Quality Measures none Orders Category Date Time Status HYDROcodone*/APAP 5/325 [[place] 5/325] Med 06/11/24 12:48 Discontinued 2 tab PO X1 ONE Vital Signs Vital signs: Vital Signs Temperature 97.9 F 06/11/24 12:30 Pulse Rate 68 06/11/24 12:30 Respiratory Rate 18 06/11/24 12:30 Blood Pressure 100/62 06/11/24 12:30 Pulse Oximetry (%) 99 06/11/24 12:30 Oxygen Delivery Method Room Air 06/11/24 12:30 Abdominal Pain MDM MDM Narrative MDM Narrative:: previous ct scan of abdomen and pelvis 05/31/24: Findings: No focal liver or splenic lesions Absent gallbladder No pancreatic or adrenal mass Multiple bilateral renal cysts Moderate bilateral renal parenchymal scar formation 2 mm soft calcification lower pole right kidney image 109 No hydronephrosis or ureteral calculi Abdominal aortic calcification no aneurysmal dilatation No pericecal inflammatory change No bowel obstruction No diverticulitis No bladder mass or bladder calculi Absent uterus Rectal vaginal prolapse Severe osteopenia Transpedicular lumbar fusion L3-L5 with satisfactory alignment Advanced degenerative disc disease L2-L3 L1-L2 Moderate narrowing hip joints IMPRESSION: 2 mm soft calcification lower pole right kidney, no hydronephrosis or ureteral calculi Moderate bilateral renal parenchymal scar formation No bowel obstruction Pelvic floor prolapse I spoke to patient at length. Patient just requested a dose of pain medication. Patient refused labs. Patient states symptoms are the same. I let her know that we do not dispense medication/narcotics for chronic pain. Patient will need to see her primary provider for this. I will give patient medication for pain today. Patient agrees with current plan of care. Patient verbalizes that she will follow-up with primary provider as scheduled to be referred with a JET INSPECTOR for pelvic prolapse surgery. Patient data External records reviewed:: [facility] previous records Clinical information provided by:: patient Social determinants that could affect healthcare access:: none Patient has the following chronic illnesses:: pelvic prolapse How is presenting disease/condition affected by chronic disease/condition?: exacerbated by Evaluation data The following diagnostics were reviewed and interpreted by me:: other (specify) (none ) Lab and/or radiology exams considered but not ordered:: none Interpretation Summary: none Medications / Prescriptions Medications or Prescriptions considered but not ordered:: none Medication administrations:: Medication Administration History Discontinued Medications Hydrocodone Bitart/Acetaminophen (Hydrocodone/Apap 5/325 Tablet) 2 tab PO X1 ONE Stop: 06/11/24 12:49 see [facility] Consultations Consultation(s) initiated? (list below): No Diagnosis Differential diagnosis abdominal pain: abdominal pain, calculus of kidney and other (Pelvic floor prolapse, UTI.) Most likely diagnosis given after review of the tests above:: chronic pelvic floor prolapse Admission Indicated Admission indicated?: not indicated Admission Request Was there a request for admission?: No Disposition Plan Disposition Plan: Discharge Discharge Attestation Discharge Attestation: The patient and all family members were given an opportunity to ask questions and understood the discharge instructions. Discharge instructions specifically effects, indications for sooner follow up or return to the emergency department, and the expected course of current diagnosis. Patient condition: Stable Discharge Plan Plan Patient Disposition: HOME (Self Care) Patient condition on transfer: Stable Prescriptions/Referrals Prescriptions/Med Rec: No Action ziprasidone HCl [Geodon] 80 mg Capsule 80 mg PO BID venlafaxine 75 mg Tablet 75 mg PO TID acetaminophen [Tylenol Extra Strength] 500 mg tablet 1,000 mg PO Q6H PRN (Reason: fever or pain) Qty: 30 0RF Percogesic 12.5-325 mg tablet 1 tab PO BID Qty: 7 0RF Xarelto 20 mg Tablet 20 mg PO QDAY Rx Instructions: must administer with evening meal donepezil [Aricept] 5 mg Tablet 5 mg PO QDAY famotidine 20 mg Tablet 20 mg PO QDAY levothyroxine 150 mcg Tablet 150 mcg PO QDAY docusate sodium 100 mg Capsule PO lisinopril 10 mg tablet 10 mg PO QDAY Qty: 30 0RF meloxicam 7.5 mg tablet 7.5 mg PO QDAY Qty: 10 0RF ferrous sulfate [FeroSul] 325 mg (65 mg iron) tablet 325 mg PO BID Patient Comments: TAKE ONE TABLET BY MOUTH WITH ORANGE JUICE TWICE DAILY VITAMIN lamotrigine 25 mg tablet 50 mg PO HS Patient Comments: TAKE TWO TABLETS BY MOUTH EVERY DAY tizanidine 2 mg tablet 2 mg PO Q12HR PRN (Reason: Muscle Spasm) Patient Comments: TAKE ONE TABLET BY MOUTH EVERY 12 hours NEEDED FOR MUSCLE spasm DO not exceed THREE doses in 24 hours clonazepam 1 mg tablet 1 mg PO BID Patient Comments: TAKE ONE TABLET BY MOUTH TWICE DAILY FOR ANXIETY docusate sodium [Stool Softener] 250 mg Capsule 250 mg PO HSPRN PRN (Reason: Constipation) atorvastatin 40 mg tablet 40 mg PO HS Patient Comments: TAKE ONE TABLET BY MOUTH AT BEDTIME FOR CHOLESTEROL cetirizine 10 mg tablet 10 mg PO DAILY PRN (Reason: Allergy Symptoms) Patient Comments: TAKE ONE TABLET BY MOUTH EVERY DAY NEEDED FOR ALLERGY potassium chloride 10 mEq tablet extended release 10 meq PO DAILY Patient Comments: TAKE ONE TABLET BY MOUTH EVERY DAY WITH FOOD pregabalin 75 mg capsule 75 mg PO TID PRN (Reason: Pain) Patient Comments: TAKE ONE CAPSULE BY MOUTH THREE TIMES DAILY NEEDED FOR PAIN clopidogrel 75 mg tablet 75 mg PO DAILY Patient Comments: TAKE ONE TABLET BY MOUTH EVERY DAY FOR THE HEART hydrocodone-acetaminophen 10-325 mg Tablet 1 tab PO TID PRN (Reason: pain) hydrocodone-acetaminophen 5-325 mg tablet 1 tab PO BID MDD 10 PRN (Reason: pain) Qty: 10 0RF Problem List Clinical Impression: Pelvic prolapse, Chronic pain Patient/Caregiver Discharge Instructions Discharge Activity: activity as tolerated Education Materials: Pelvic Organ Prolapse ..., ED Chronic Pain Additional Instructions: Please follow-up with primary provider in 1 to 2 days. Come back to the emergency room if symptoms change or worsen. Print Language: Palestinian Stand Alone Forms: Fany Award Info., Patient Portal Info Letter PA/DIRECTOR OF SECURITIES AND REAL ESTATE Supervising Physician PA/DIRECTOR OF SECURITIES AND REAL ESTATE Supervising Physician: juliet
[2024-06-11] MEDS: HYDROcodone/APAP 5/325 TABLET 2 TAB PO (13:21)
== END 2024-06-11 13:29 | disposition home or self-care (01) ==
LOC: SERX 13:19
PROVIDERS: Emergency Provider Emergency Medicine
DX: N81.89 Other female genital prolapse (principal)
CPT/HCPCS: 99283; A9270

== ENCOUNTER 2024-06-22 13:33 | Emergency (ER) | payer MEDICAID, SELFPAY ==
[2024-06-22 13:55] VITALS: BP 101/65; PULSE 84; RESP 18; TEMP 36.9; O2SAT 98; BMI 50.0
--- NOTE | 2024-06-22 14:02 | XR_ITS ---
Examination: CT abdomen and pelvis without contrast. Coronal 3-D reconstructions. Sagittal 2-D reconstructions. Date and time of exam:June 22, 2024 1539 hours INDICATIONS: Onset severe upper and lower abdominal pain today CTDI: vol (mGy): 10.9 DLP: (mGycm): 558 Technique: Axial images of the abdomen have been obtained, 3 mm slice thickness Intravenous contrast material has not been administered. Low dose protocols were performed. One or more of the following dose reduction techniques were used; automated exposure control, adjustment of the mA and/or KV according to patient size, use of iterative reconstruction technique. Findings: No focal liver or splenic lesion Absent gallbladder No pancreatic mass Numerous bilateral renal cysts 2 mm soft calculus lower pole right kidney No hydronephrosis or ureteral calculi Patient motion obscures scan detail No pericecal inflammatory change Mildly fluid distended small bowel loops Colonic diverticulosis, no diverticulitis Lumbar levoscoliosis 18 degrees Moderate narrowing hip joints IMPRESSION: Small bowel ileus versus enteritis 2 mm nonobstructing lower pole right renal calculus Multicystic renal disease
--- NOTE | 2024-06-22 14:03 | PD.EDRME ---
Rapid Medical Screening Exam E Arrival date/time: 06/22/24 13:33 63-year-old female with a history of a prolapsed rectum, hyperlipidemia, hypertension presents to the emergency room with a chief complaint of lower abdominal pain and rectal bleeding x 2 days. I have greeted and performed a focused initial assessment of this patient. A comprehensive ED assessment and evaluation of the patient, analysis of all test results, and completion of the medical decision making process will be conducted by additional ED providers. Chief Complaint: Abdominal Pain Vital signs: Vital Signs Temperature 98.5 F 06/22/24 13:55 Pulse Rate 84 06/22/24 13:55 Respiratory Rate 18 06/22/24 13:55 Blood Pressure 101/65 06/22/24 13:55 Pulse Oximetry (%) 98 06/22/24 13:55 Oxygen Delivery Method Room Air 06/22/24 13:55 Vital signs reviewed by provider: Yes
[2024-06-22] MEDS: HYDROcodone/APAP 10/325 TAB PO (14:22)
[2024-06-22 15:00] LABS: Basophils # (Auto) 0.1 Thou/mm3 (0.0-0.2); Basophils % (Auto) 1 % (0-2.5); Eosinophils # (Auto) 0.2 Thou/mm3 (0.0-0.5); Eosinophils % (Auto) 2 % (0-10); Hematocrit 31.5 % (36.0-46.0); Hemoglobin 10.3 g/dL (12.0-16.0); Immature Granulocytes % (Auto) 0 % (0-0); Immature Granulocytes Auto 0.03 Thou/mm3 (0.00-0.00); Lymphocytes # (Auto) 2.2 Thou/mm3 (1.0-4.8); Lymphocytes % (Auto) 21 % (10-50); Mean Corpuscular HGB Conc 32.7 g/dl (31.0-37.0); Mean Corpuscular Hemoglobin 32.8 pg (25.0-35.0); Mean Corpuscular Volume 100 fL (80-100); Monocytes # (Auto) 0.8 Thou/mm3 (0.0-0.8); Monocytes % (Auto) 8 % (0-12); Neutrophils # (Auto) 7.3 Thou/mm3 (1.8-7.7); Neutrophils % (Auto) 69 % (37-80); Nucleated Red Blood Cell % 0 /100 WBC (0); Platelet Count 257 Thou/mm3 (140-440); RDW Standard Deviation 49.1 fL (36.4-46.3); Red Blood Count 3.14 Miln/mm3 (4.00-5.20); White Blood Count 10.6 Thou/mm3 (3.6-11.0)
[2024-06-22 15:14] LABS: Partial Thromboplastin Time 30.2 Seconds (22.0-36.0); Prothrombin Time 10.5 Seconds (9.0-12.2)
[2024-06-22 15:25] LABS: Alanine Aminotransferase 12 U/L (10-49); Albumin, Serum 3.9 gm/dL (3.4-4.8); Albumin/Globulin Ratio 1.6 (1.2-2.2); Alkaline Phosphatase 73 U/L (46-116); Anion Gap 1 (7-16); Aspartate Amino Transferase 17 U/L (0-34); BUN/Creatinine Ratio 15 Ratio (12-20); Bilirubin,Total < 0.2 mg/dL (0.3-1.2); Blood Urea Nitrogen 18 mg/dL (9-23); Calcium 9.3 mg/dL (8.3-10.6); Calcium (Corrected) 9.4 mg/dL (8.5-10.1); Carbon Dioxide 26.7 mMol/L (20.0-31.0); Chloride 109 mMol/L (98-107); Creatinine (Component) 1.2 mg/dL (0.6-1.3); Estimated Creatinine Clearance 41.1 mL/min (>60); Globulin 2.5 gm/dL (2.3-3.5); Glucose 74 mg/dL (74-106); Lipase 131 U/L (12-53); Osmolality,Calculated 274 (275-295); Potassium 4.1 mMol/L (3.4-5.1); Sodium 137 mMol/L (136-145); Total Protein 6.4 gm/dL (5.7-8.2); eGFR 52 See Note
[2024-06-22 15:26] LABS: Collection Type, Urine Clean Catch; RBC,Urine 0 /hpf (0-3); WBC,Urine 0 /hpf (0-5)
[2024-06-22 15:41] LABS: Bacteria,Urine Rare; Bilirubin,Urine Negative (Negative); Blood,Urine Negative (Negative); Clarity,Urine Clear (Clear/Hazy); Color,Urine Lt-Yellow (Lt Yel-Yel); Glucose, Urine Negative (Negative); Ketones,Urine Negative (Negative); Leukocyte Esterase,Urine Negative (Negative); Nitrite,Urine Negative (Negative); Protein,Urine Negative (Neg - Trace); Specific Gravity,Urine 1.012 (1.001-1.035); Squamous Epithelial Cell,Urine 2 /hpf (0-5); Urobilinogen,Urine Negative mg/dL (0.0-1.0)
[2024-06-22 18:02] VITALS: BP 125/71; PULSE 64; RESP 18; TEMP 36.4; O2SAT 99
--- NOTE | 2024-06-22 18:24 | PD.EDABDPN ---
ED Abdominal Pain RME/HPI General Chief Complaint: Abdominal Pain Stated complaint: LOWER ABD PAIN, VAG/RECTAL BLEDING/PROLAPSE Time seen by provider: 06/22/24 18:11 Arrival date/time: 06/22/24 13:33 RME / HPI RME / HPI narrative: 63-year-old female with a history of a prolapsed rectum, hyperlipidemia, hypertension presents to the emergency room with a chief complaint of lower abdominal pain and rectal bleeding x 2 days. Severity of symptoms mild. Patient denies any other complaints. Patient is waiting to be seen by a surgeon regarding her rectal prolapse. Denies any vomiting. Related Data Home Medications ?Medication ?Instructions ?Recorded ?Confirmed ziprasidone HCl 80 mg capsule 80 mg PO BID 04/05/19 02/04/24 (Geodon) venlafaxine 75 mg tablet 75 mg PO TID 12/04/20 02/04/24 atorvastatin 40 mg tablet 40 mg PO HS 03/27/23 02/04/24 cetirizine 10 mg tablet 10 mg PO DAILY PRN Allergy Symptoms 03/27/23 04/16/23 clonazepam 1 mg tablet 1 mg PO BID 03/27/23 04/16/23 docusate sodium 250 mg capsule 250 mg PO HSPRN PRN Constipation 03/27/23 04/16/23 (Stool Softener) ferrous sulfate 325 mg (65 mg 325 mg PO BID 03/27/23 04/16/23 iron) tablet (FeroSul) lamotrigine 25 mg tablet 50 mg PO HS 03/27/23 02/04/24 potassium chloride 10 mEq 10 meq PO DAILY 03/27/23 04/16/23 tablet,extended release pregabalin 75 mg capsule 75 mg PO TID PRN Pain 03/27/23 02/04/24 tizanidine 2 mg tablet 2 mg PO Q12HR PRN Muscle Spasm 03/27/23 02/04/24 clopidogrel 75 mg tablet 75 mg PO DAILY 04/16/23 04/16/23 hydrocodone 10 mg-acetaminophen 1 tab PO TID PRN pain 04/17/23 02/04/24 325 mg tablet docusate sodium 100 mg capsule mg PO 02/04/24 donepezil 5 mg tablet (Aricept) 5 mg PO QDAY 02/04/24 02/04/24 famotidine 20 mg tablet 20 mg PO QDAY 02/04/24 02/04/24 levothyroxine 150 mcg tablet 150 mcg PO QDAY 02/04/24 02/04/24 rivaroxaban 20 mg tablet (Xarelto) 20 mg PO QDAY 02/04/24 02/04/24 Previous Rx's ?Medication ?Instructions ?Recorded acetaminophen 500 mg tablet 1,000 mg (2 x 500 mg) PO Q6H PRN 07/05/23 (Tylenol Extra Strength) fever or pain #30 tabs diphenhydramine 12.5 1 tab PO BID #7 tabs 01/19/24 mg-acetaminophen 325 mg tablet (Percogesic) lisinopril 10 mg tablet 10 mg PO QDAY #30 tabs 04/21/24 meloxicam 7.5 mg tablet 7.5 mg PO QDAY #10 tabs 05/02/24 hydrocodone 5 mg-acetaminophen 325 1 tab PO BID PRN pain #10 tabs 06/01/24 mg tablet acetaminophen 300 mg-codeine 30 mg 1 tab PO TID PRN pain #20 tabs 06/22/24 tablet acetaminophen 300 mg-codeine 30 mg 1 tab PO TID PRN pain #20 tabs 06/22/24 tablet Allergies Allergy/AdvReac Type Severity Reaction Status Date / Time diphenhydramine Allergy Severe ITCHING Verified 06/11/24 12:24 ketorolac Allergy Severe ITCHING Verified 06/11/24 12:24 Penicillins Allergy Severe ITCH Verified 06/11/24 12:24 sumatriptan succinate Allergy Severe ITCHING, Verified 06/11/24 12:24 VOMITING propranolol Allergy Unknown Verified 06/11/24 12:24 codeine AdvReac Severe Vomiting Verified 06/11/24 12:24 Review of Systems Review of Systems Narrative Review of Systems: Review of system reviewed and within normal limits except mentioned in HPI ED Exam Narrative Physical exam: VITAL SIGNS: Reviewed. GENERAL APPEARANCE: Alert and interactive, follows commands, no acute distress, HEAD AND FACE: Non-traumatic. ENT: PERRL, pink conjunctivitis, eyelid no trauma, Mucous membrane moist. NECK: Supple, nontender, no nuchal rigidity. CHEST: No tenderness, no crepitus, no paradoxical movement, no retractions. LUNGS: Clear, well ventilated, symmetric, no rales, no wheezing, no ronchi, no stridor, good breath sounds bilaterally. HEART: Regular rate, regular rhythm, no murmur, no gallops. ABDOMEN: Soft, positive bowel sounds, nondistended, no guarding, lower abdominal tenderness,, no rebound, no masses, RECTAL: Deferred. GENITAL: Deferred. NEUROLOGICAL: Gross motor function intact sensory function intact, Appropriate for age. MUSCULOSKELETAL: low back nontender, full range of motion. EXTREMITIES: Nontender, full range of motion. SKIN: Color pink, dry, no rash, no lacerations, no abrasions, no contusions. LYMPHATICS: Deferred. Course Quality Measures none Orders Category Date Time Status CT abdomen pelvis wo con Stat Exams 06/22/24 14:02 Completed CBC Stat Lab 06/22/24 14:40 Completed CMP [Comprehensive Metabolic Panel] Stat Lab 06/22/24 14:40 Completed Lipase Stat Lab 06/22/24 14:40 Completed PT [Prothrombin Time with INR] Stat Lab 06/22/24 14:40 Completed PTT [Partial Thromboplastin Time] Stat Lab 06/22/24 14:40 Completed Type and Screen Stat Lab 06/22/24 15:19 Completed UA [Urinalysis] Stat Lab 06/22/24 15:16 Completed Urine Culture Stat Lab 06/22/24 14:02 Received HYDROcodone/APAP 10/325 [[place] 10/325] Med 06/22/24 14:04 Discontinued 1 tab PO X1 ONE Vital Signs Vital signs: Vital Signs Temperature 98.5 F 06/22/24 13:55 Pulse Rate 84 06/22/24 13:55 Respiratory Rate 18 06/22/24 13:55 Blood Pressure 101/65 06/22/24 13:55 Pulse Oximetry (%) 98 06/22/24 13:55 Oxygen Delivery Method Room Air 06/22/24 13:55 Abdominal Pain MDM MDM Narrative MDM Narrative:: 63-year-old female with a history of a prolapsed rectum, hyperlipidemia, hypertension presents to the emergency room with a chief complaint of lower abdominal pain and rectal bleeding x 2 days. Severity of symptoms mild. Patient denies any other complaints. Patient is waiting to be seen by a surgeon regarding her rectal prolapse. Denies any vomiting. Patient's workup today came back with no leukocytosis, CMP unremarkable urinalysis no UTI. CT scan of the abdomen pelvis showed Small bowel ileus versus enteritis 2 mm nonobstructing lower pole right renal calculus Multicystic renal disease Results discussed with the patient. Patient was advised to follow-up. Her surgeon regarding her chronic reducible rectal prolapse. Patient agrees with the plan. Currently patient told me that her rectum is not prolapsing. Patient data External records reviewed:: None Clinical information provided by:: none Social determinants that could affect healthcare access:: none Patient has the following chronic illnesses:: History of rectal prolapse How is presenting disease/condition affected by chronic disease/condition?: exacerbated by Evaluation data The following diagnostics were reviewed and interpreted by me:: lab results and radiology exam(s) Lab and/or radiology exams considered but not ordered:: None Interpretation Summary: See results in [facility] Medications / Prescriptions Medications or Prescriptions considered but not ordered:: None Medication administrations:: Medication Administration History Discontinued Medications Hydrocodone Bitart/Acetaminophen (Hydrocodone/Apap 10/325 Tab) 1 tab PO X1 ONE Stop: 06/22/24 14:05 Last Admin: 06/22/24 14:22 Dose: 1 tab Documented By: DONATO Talley Consultations Consultation(s) initiated? (list below): No Diagnosis Differential diagnosis abdominal pain: abdominal pain and diverticulitis Most likely diagnosis given after review of the tests above:: Abdominal pain, bright red blood per rectum Admission Indicated Admission indicated?: not indicated Admission Request Was there a request for admission?: No Disposition Plan Disposition Plan: Discharge Discharge Attestation Discharge Attestation: The patient and all family members were given an opportunity to ask questions and understood the discharge instructions. Discharge instructions specifically effects, indications for sooner follow up or return to the emergency department, and the expected course of current diagnosis. Patient condition: Stable Discharge Plan Plan Patient Disposition: HOME (Self Care) Disposition Comment: stable Prescriptions/Referrals Prescriptions/Med Rec: New acetaminophen-codeine 300-30 mg tablet 1 tab PO TID PRN (Reason: pain) Qty: 20 0RF acetaminophen-codeine 300-30 mg tablet 1 tab PO TID PRN (Reason: pain) Qty: 20 0RF Continued acetaminophen [Tylenol Extra Strength] 500 mg tablet 1,000 mg PO Q6H PRN (Reason: fever or pain) Qty: 30 0RF No Action ziprasidone HCl [Geodon] 80 mg Capsule 80 mg PO BID venlafaxine 75 mg Tablet 75 mg PO TID Percogesic 12.5-325 mg tablet 1 tab PO BID Qty: 7 0RF Xarelto 20 mg Tablet 20 mg PO QDAY Rx Instructions: must administer with evening meal donepezil [Aricept] 5 mg Tablet 5 mg PO QDAY famotidine 20 mg Tablet 20 mg PO QDAY levothyroxine 150 mcg Tablet 150 mcg PO QDAY docusate sodium 100 mg Capsule PO lisinopril 10 mg tablet 10 mg PO QDAY Qty: 30 0RF meloxicam 7.5 mg tablet 7.5 mg PO QDAY Qty: 10 0RF ferrous sulfate [FeroSul] 325 mg (65 mg iron) tablet 325 mg PO BID Patient Comments: TAKE ONE TABLET BY MOUTH WITH ORANGE JUICE TWICE DAILY VITAMIN lamotrigine 25 mg tablet 50 mg PO HS Patient Comments: TAKE TWO TABLETS BY MOUTH EVERY DAY tizanidine 2 mg tablet 2 mg PO Q12HR PRN (Reason: Muscle Spasm) Patient Comments: TAKE ONE TABLET BY MOUTH EVERY 12 hours NEEDED FOR MUSCLE spasm DO not exceed THREE doses in 24 hours clonazepam 1 mg tablet 1 mg PO BID Patient Comments: TAKE ONE TABLET BY MOUTH TWICE DAILY FOR ANXIETY docusate sodium [Stool Softener] 250 mg Capsule 250 mg PO HSPRN PRN (Reason: Constipation) atorvastatin 40 mg tablet 40 mg PO HS Patient Comments: TAKE ONE TABLET BY MOUTH AT BEDTIME FOR CHOLESTEROL cetirizine 10 mg tablet 10 mg PO DAILY PRN (Reason: Allergy Symptoms) Patient Comments: TAKE ONE TABLET BY MOUTH EVERY DAY NEEDED FOR ALLERGY potassium chloride 10 mEq tablet extended release 10 meq PO DAILY Patient Comments: TAKE ONE TABLET BY MOUTH EVERY DAY WITH FOOD pregabalin 75 mg capsule 75 mg PO TID PRN (Reason: Pain) Patient Comments: TAKE ONE CAPSULE BY MOUTH THREE TIMES DAILY NEEDED FOR PAIN clopidogrel 75 mg tablet 75 mg PO DAILY Patient Comments: TAKE ONE TABLET BY MOUTH EVERY DAY FOR THE HEART hydrocodone-acetaminophen 10-325 mg Tablet 1 tab PO TID PRN (Reason: pain) hydrocodone-acetaminophen 5-325 mg tablet 1 tab PO BID MDD 10 PRN (Reason: pain) Qty: 10 0RF Referrals: No Primary/Family,Physician [Primary Care Provider] - In 1 week Problem List Clinical Impression: Abdominal pain Patient/Caregiver Discharge Instructions Education Materials: Abdominal Pain Additional Instructions: Thank you for the opportunity for serving you today. You are stable for discharged . You are advised to: Follow-up with your PCP in 1 to 2 days follow-up with your surgeon as instructed Return to ED for worsening of symptoms Increase oral fluids Take medication as prescribed Print Language: Syriac Stand Alone Forms: Fany Award Info., Patient Portal Info Letter RAMESH/PIERCE Supervising Physician RAMESH/PIERCE Supervising Physician: Barbara MAGDALENO
== END 2024-06-22 18:34 | disposition home or self-care (01) ==
PROVIDERS: Nurse Practitioner Family; Emergency Provider Emergency Medicine
DX: R10.30 Lower abdominal pain, unspecified (principal); E78.5 Hyperlipidemia, unspecified; I10 Essential (primary) hypertension; K62.5 Hemorrhage of anus and rectum; K62.3 Rectal prolapse
CPT/HCPCS: 36415; 74176; 80053; 81001; 83690; 85025; 85610; 85730; 86850; 86900; 86901; 87086; 99284; A9270

== ENCOUNTER → 2024-07-19 | Outpatient (CLI) | payer MEDICAID, SELFPAY ==
--- NOTE | 2024-07-19 13:55 | RESP.EEG ---
EEG COMPLETED AT THIS TIME AND WAITING TO BE READ
== END | disposition home or self-care (01) ==
LOC: SRTX 13:03
PROVIDERS: Referring Provider Psychiatry & Neurology Neurology; Visit Provider Psychiatry & Neurology Neurology
DX: G40.89 Other seizures (principal)
CPT/HCPCS: 95816

== ENCOUNTER 2024-08-21 20:04 | Emergency (ER) | payer MEDICAID, SELFPAY ==
[2024-08-21 20:07] VITALS: BMI 32.0
[2024-08-21 20:14] VITALS: BP 103/55; PULSE 91; RESP 18; TEMP 37.1; O2SAT 97
--- NOTE | 2024-08-21 20:18 | PD.EDRME ---
Rapid Medical Screening Exam RME Arrival date/time: 08/21/24 20:04 64 year old f present to ED for c/o of hip/back pain worsen I have greeted and performed a focused initial assessment of this patient. A comprehensive ED assessment and evaluation of the patient, analysis of all test results, and completion of the medical decision making process will be conducted by additional ED providers. Chief Complaint: Hip Injury/Pain Time Seen by Provider: 08/21/24 20:12 Vital signs: Vital Signs Temperature 98.7 F 08/21/24 20:14 Pulse Rate 91 08/21/24 20:14 Respiratory Rate 18 08/21/24 20:14 Blood Pressure 103/55 L 08/21/24 20:14 Pulse Oximetry (%) 97 08/21/24 20:14 Oxygen Delivery Method Room Air 08/21/24 20:14
--- NOTE | 2024-08-21 22:33 | PC.NURSE ---
PT DID NOT ANSWER WHEN yepp[facility] WAS CALLING.
--- NOTE | 2024-08-21 22:53 | PC.NURSE ---
radiology called patient. no answer x 1 at [phone]. checked outside and lobby.
== END 2024-08-21 23:42 | disposition left against medical advice (07) ==
LOC: SERX 20:21
PROVIDERS: Emergency Provider Emergency Medicine; PCP Physician Assistant Medical
DX: M54.9 Dorsalgia, unspecified (principal); M25.559 Pain in unspecified hip; Z53.29 Procedure and treatment not carried out because of patient's decision for other reasons
CPT/HCPCS: 99281

== ENCOUNTER 2024-08-27 11:09 | Emergency (ER) | payer MEDICAID, SELFPAY ==
[2024-08-27] VITALS (8 sets, daily range): BP systolic 92–125; BP diastolic 59–75; PULSE 55–91; RESP 18–19; TEMP 36.4–37.1; O2SAT 96–100; BMI 32.2
--- NOTE | 2024-08-27 11:46 | XR_ITS ---
Examination: PA chest single view Technique: Upright PA chest single view Exam date and time: August 27, 2024 at 1157 hrs. Indications: Patient fell today with injury to the chest, chest pain Findings: Normal heart size. No pneumothorax. Old right-sided rib fractures Impression: No pneumothorax pulmonary contusion or hemothorax
--- NOTE | 2024-08-27 11:46 | XR_ITS ---
Examination:Left hip AP, lateral, AP pelvis 3 views Technique: Hip AP lateral, AP pelvis, 3 views Exam date and time: August 27, 2024 1129 hrs. Indication: Patient fell today with injury to the Findings: No acute fracture or dislocation Old fractures of the inferior pubic rami Right hip intact Impression: No acute left hip fracture
--- NOTE | 2024-08-27 11:46 | XR_ITS ---
Examination: Left femur 2 views Technique: AP lateral left femur 2 views Indications: Patient fell today with injury to the femur, leg pain Findings: No hip fracture or dislocation Shaft of the femur intact Impression: No acute fracture
--- NOTE | 2024-08-27 11:46 | EKG_ITS ---
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
--- NOTE | 2024-08-27 11:47 | PD.EDRME ---
Rapid Medical Screening Exam RME Arrival date/time: 08/27/24 11:09 64-year-old female presents emergency department today for left hip pain patient reports that she had a fall patient was reports generalized fatigue Chief Complaint: Fall Vital signs: Vital Signs Temperature 98.7 F 08/27/24 11:43 Pulse Rate 91 08/27/24 11:43 Respiratory Rate 18 08/27/24 11:43 Blood Pressure 96/66 08/27/24 11:43 Pulse Oximetry (%) 96 08/27/24 11:43 Oxygen Delivery Method Room Air 08/27/24 11:43
[2024-08-27 12:50] LABS: Basophils % (Auto) 0 % (0-2.5); Eosinophils # (Auto) 0.2 Thou/mm3 (0.0-0.5); Eosinophils % (Auto) 2 % (0-10); Hematocrit 24.1 % (36.0-46.0); Immature Granulocytes % (Auto) 1 % (0-0); Immature Granulocytes Auto 0.05 Thou/mm3 (0.00-0.00); Lymphocytes # (Auto) 2.2 Thou/mm3 (1.0-4.8); Lymphocytes % (Auto) 22 % (10-50); Mean Corpuscular HGB Conc 30.7 g/dl (31.0-37.0); Mean Corpuscular Hemoglobin 27.7 pg (25.0-35.0); Mean Corpuscular Volume 90 fL (80-100); Monocytes # (Auto) 0.9 Thou/mm3 (0.0-0.8); Monocytes % (Auto) 9 % (0-12); Neutrophils # (Auto) 6.6 Thou/mm3 (1.8-7.7); Neutrophils % (Auto) 66 % (37-80); Nucleated Red Blood Cell % 0 /100 WBC (0); Platelet Count 389 Thou/mm3 (140-440); RDW Standard Deviation 49.9 fL (36.4-46.3); Red Blood Count 2.67 Miln/mm3 (4.00-5.20)
[2024-08-27 13:00] LABS: Hemoglobin 7.4 g/dL (12.0-16.0)
[2024-08-27 13:22] LABS: Alanine Aminotransferase 8 U/L (10-49); Albumin, Serum 4.1 gm/dL (3.4-4.8); Albumin/Globulin Ratio 1.6 (1.2-2.2); Alkaline Phosphatase 64 U/L (46-116); Anion Gap 5 (7-16); Aspartate Amino Transferase 15 U/L (0-34); BUN/Creatinine Ratio 13 Ratio (12-20); Bilirubin,Total < 0.2 mg/dL (0.3-1.2); Blood Urea Nitrogen 17 mg/dL (9-23); Calcium 8.9 mg/dL (8.3-10.6); Calcium (Corrected) 8.9 mg/dL (8.5-10.1); Carbon Dioxide 22.8 mMol/L (20.0-31.0); Chloride 111 mMol/L (98-107); Creatinine (Component) 1.3 mg/dL (0.6-1.3); Estimated Creatinine Clearance 40.5 mL/min (>60); Globulin 2.6 gm/dL (2.3-3.5); Glucose 88 mg/dL (74-106); Osmolality,Calculated 278 (275-295); Potassium 4.1 mMol/L (3.4-5.1); Sodium 139 mMol/L (136-145); Total Protein 6.7 gm/dL (5.7-8.2); Troponin I < 0.002 ng/mL (0.0-0.045); eGFR 46 See Note
[2024-08-27] MEDS: HYDROcodone/APAP 10/325 TAB PO (14:40)
[2024-08-27 15:17] LABS: OBS Developer Expiration Date 123125; OBS Developer Lot # 124; OBS Performed By vasqk2; OBS QC OK? Yes
--- NOTE | 2024-08-27 16:31 | PD.EDFALL ---
ED Fall Injury RME/HPI General Chief Complaint: Fall Stated Complaint: FALL TODAY, LEFT HIP/LEG PAIN Arrival date/time: 08/27/24 11:09 RME / HPI RME / HPI Narrative: 08/27/24 11:09 64-year-old female presents emergency department today for left hip pain patient reports that she had a fall patient was reports generalized fatigue DR. DINERO MAIN ED EVALUATION: 64 year old female with history of hypertension, hypothyroidism, chronic pain, chronic anemia, and chronic vaginal bleeding, presents to the ED for evaluation of left hip pain after fall today. Patient reports she is predominantly wheelchair bound and today had got up from her wheelchair to walk to the kitchen which is about 5 feet from her. States fpc to the kitchen she began to feel weak and light headed and fell, landing on her left hip. Denied hitting her head or LOC. No other injuries or complaints reported. Related Data Home Medications ?Medication ?Instructions ?Recorded ?Confirmed ziprasidone HCl 80 mg capsule 80 mg PO BID 04/05/19 02/04/24 (Geodon) venlafaxine 75 mg tablet 75 mg PO TID 12/04/20 02/04/24 atorvastatin 40 mg tablet 40 mg PO HS 03/27/23 02/04/24 cetirizine 10 mg tablet 10 mg PO DAILY PRN Allergy Symptoms 03/27/23 04/16/23 clonazepam 1 mg tablet 1 mg PO BID 03/27/23 04/16/23 docusate sodium 250 mg capsule 250 mg PO HSPRN PRN Constipation 03/27/23 04/16/23 (Stool Softener) ferrous sulfate 325 mg (65 mg 325 mg PO BID 03/27/23 04/16/23 iron) tablet (FeroSul) lamotrigine 25 mg tablet 50 mg PO HS 03/27/23 02/04/24 potassium chloride 10 mEq 10 meq PO DAILY 03/27/23 04/16/23 tablet,extended release pregabalin 75 mg capsule 75 mg PO TID PRN Pain 03/27/23 02/04/24 tizanidine 2 mg tablet 2 mg PO Q12HR PRN Muscle Spasm 03/27/23 02/04/24 clopidogrel 75 mg tablet 75 mg PO DAILY 04/16/23 04/16/23 hydrocodone 10 mg-acetaminophen 1 tab PO TID PRN pain 04/17/23 02/04/24 325 mg tablet docusate sodium 100 mg capsule mg PO 02/04/24 donepezil 5 mg tablet (Aricept) 5 mg PO QDAY 02/04/24 02/04/24 famotidine 20 mg tablet 20 mg PO QDAY 02/04/24 02/04/24 levothyroxine 150 mcg tablet 150 mcg PO QDAY 02/04/24 02/04/24 rivaroxaban 20 mg tablet (Xarelto) 20 mg PO QDAY 02/04/24 02/04/24 Previous Rx's ?Medication ?Instructions ?Recorded acetaminophen 500 mg tablet 1,000 mg (2 x 500 mg) PO Q6H PRN 07/05/23 (Tylenol Extra Strength) fever or pain #30 tabs diphenhydramine 12.5 1 tab PO BID #7 tabs 01/19/24 mg-acetaminophen 325 mg tablet (Percogesic) lisinopril 10 mg tablet 10 mg PO QDAY #30 tabs 04/21/24 meloxicam 7.5 mg tablet 7.5 mg PO QDAY #10 tabs 05/02/24 hydrocodone 5 mg-acetaminophen 325 1 tab PO BID PRN pain #10 tabs 06/01/24 mg tablet acetaminophen 300 mg-codeine 30 mg 1 tab PO TID PRN pain #20 tabs 06/22/24 tablet acetaminophen 300 mg-codeine 30 mg 1 tab PO TID PRN pain #20 tabs 06/22/24 tablet Allergies Allergy/AdvReac Type Severity Reaction Status Date / Time diphenhydramine Allergy Severe ITCHING Verified 08/27/24 11:12 ketorolac Allergy Severe ITCHING Verified 08/27/24 11:12 Penicillins Allergy Severe ITCH Verified 08/27/24 11:12 sumatriptan succinate Allergy Severe ITCHING, Verified 08/27/24 11:12 VOMITING propranolol Allergy Unknown Verified 08/27/24 11:12 codeine AdvReac Severe Vomiting Verified 08/27/24 11:12 Review of Systems Review of Systems Narrative Review of Systems: Gen: No fever, no chills, no weight loss, +episode of weakness and light headed sensation that caused her fall EYES: No discharge, no visual changes, no pain HEENT: No ear pain, no congestion, no sore throat PULM: no shortness of breath, no cough, no congestion CV: No chest pain, no dyspnea on exertion, no palpitations, no chest tightness GI: No nausea, no vomiting, no diarrhea, no pain, no constipation : No frequency, no urgency,? no dysuria Musc/skel: +left hip pain, no back pain Skin: No rash, no ecchymosis, no lesions Neuro: No weakness, no headache Past Medical History Past Medical History NEUROLOGIC: Positive Cerebrovascular Accident, Transient Ischemic Attacks (TIA), Seizures, Migraine and Head Trauma CARDIAC: Positive Hypercholesterolemia and Hypertension RESPIRATORY: Positive Chronic Obstructive Pulmonary Disease (COPD) and Asthma GASTROINTESTINAL: Positive Gastrointestinal Disorders, Cirrhosis, Ulcer, Gastroesophageal Reflux Disease and Obesity GENITOURINARY: Positive Genitourinary Disorders and Renal Disease REPRODUCTIVE: Positive Previous Pregnancies MUSCULOSKELETAL: Positive Musculoskeletal Disorders, Arthritis, Osteoporosis, Degenerative Disk Disease, Gout, Scoliosis, Fibromyalgia and Fractures ENT: Positive Head Trauma ENDOCRINE: Positive Endocrine Disorders and Hypothyroidism HEMATOLOGIC: Positive Anemia PSYCHO/SOCIAL: Positive Bipolar Disorder, Depression, Anxiety and Post Traumatic Stress Disorder OTHER HISTORY: Positive Falls, Blood Transfusions, Chemotherapy, Chicken Pox, Measles and Mumps Family History FAMILY HISTORY: Positive Family Cancer; Negative Family Respiratory Disorders, Family Surgery or Family Anesthesia Reaction Surgical History SURGICAL: Positive Endocrine Surgery, Thyroidectomy, Abdominal Surgery, Amputation, Open Reduction Internal Fixation, Hysterectomy and Section Social History SMOKING STATUS: Current every day smoker SECOND HAND EXPOSURE: No (vape) SUBSTANCE USE: does not use ED Exam Narrative Physical exam: GENERAL APPEARANCE: AxOx4, no obvious distress, nontoxic appearing HEENT: NC, AT. MMM. EOMI, clear conjunctiva, oropharynx clear. NECK: Supple without lymphadenopathy. No stiffness or restricted ROM. HEART: Normal rate and regular rhythm, normal S1/S1, no m/r/g LUNGS: CTAB, moving air well. No crackles or wheezes are heard. ABDOMEN: Soft, nontender, nondistended with good bowel sounds heard. PELVIC: NO obvious vaginal bleeding or hemorrhage. RECTAL: Exam performed in presence of female nurse. External hemorrhoids noted, not thrombosed, no bleeding, normal tone, brown stool that is guaiac negative BACK: No midline C/T/L spine pain or deformity, No CVAT, no obvious deformity. EXTREMITIES: Without cyanosis, clubbing or edema. MUSCULOSKELETAL: Mild left hip tenderness to palpation, no chest tenderness NEUROLOGICAL: Grossly nonfocal. Alert and oriented, moving all 4 extremities. CN not formally tested but appear grossly intact. Skin: Warm and dry without any rash. Course Quality Measures none Orders Category Date Time Status EKG (ED ONLY) *Do not use* NOW Care 08/27/24 11:46 Completed Transfuse,blood/blood products NOW Care 08/27/24 14:12 Active guaiac [Occult Blood,Stool (Nursing)] NOW Care 08/27/24 14:05 Active EKG (ED Only) Stat Exams 08/27/24 11:46 Draft XR chest 1V portable Stat Exams 08/27/24 11:46 Completed XR femur LT 2V Stat Exams 08/27/24 11:46 Completed XR hip LT w pelvis 2-3V Stat Exams 08/27/24 11:46 Completed CBC Stat Lab 08/27/24 11:50 Completed Comprehensive Metabolic Panel Stat Lab 08/27/24 11:50 Completed Occult Blood, Stool (LAB) Stat Lab 08/27/24 15:01 Completed Troponin I Stat Lab 08/27/24 11:50 Completed Type and Screen Stat Lab 08/27/24 14:48 Completed prbc [Red Blood Cells] Stat Lab 08/27/24 14:48 Completed HYDROcodone/APAP 10/325 [[place] 10/325] Med 08/27/24 14:05 Discontinued 1 tab PO X1 ONE Reevaluation(s) Reevaluation #1: Patient remains clinically stable throughout the emergency department visit. We reviewed all the results, analysis, and treatment plans. Patient is amenable to discharge. Strict return precautions were outlined. Patient was discharged in stable condition. Time: 17:00 Vital Signs Vital signs: Vital Signs Temperature 98.7 F 08/27/24 11:43 Pulse Rate 91 08/27/24 11:43 Respiratory Rate 18 08/27/24 11:43 Blood Pressure 96/66 08/27/24 11:43 Pulse Oximetry (%) 96 08/27/24 11:43 Oxygen Delivery Method Room Air 08/27/24 11:43 Pulse ox is 96% on room air which is adequate. Fall MDM Narrative MDM Narrative:: Jannette Lagos am scribing for and in the presence of Dr. Dinero. Patient data External records reviewed:: [facility] previous records (I reviewed ED visi ton 06/22/2024 ) Clinical information provided by:: patient Social determinants that could affect healthcare access:: none Patient has the following chronic illnesses:: hypertension, hypothyroidism, chronic pain, chronic anemia, and chronic vaginal bleeding How is presenting disease/condition affected by chronic disease/condition?: exacerbated by Evaluation data The following diagnostics were reviewed and interpreted by me:: lab results, radiology exam(s) and EKG tracing(s) (EKG at 11:50 shows sinus rhythm, rate 80, no acute ischemic changes, no STEMI ) Lab and/or radiology exams considered but not ordered:: None Interpretation Summary: Ordering Physician: Hilton Lackey NP, NP Date of Service: 08/27/24 Procedure(s): XR chest 1V portable Accession Number(s): [id number] cc: Ziyad RAJAN)Hilton NP; Ranjit Kebede MD~ Examination: PA chest single view Technique: Upright PA chest single view Exam date and time: August 27, 2024 at 1157 hrs. Indications: Patient fell today with injury to the chest, chest pain Findings: Normal heart size. No pneumothorax. Old right-sided rib fractures Impression: No pneumothorax pulmonary contusion or hemothorax Dictated By:Ranjit Kebede MD Signed By:<Electronically signed by Ranjit Kebede MD in OV>08/27/24 1253 Ordering Physician: Hilton Lackey NP, NP Date of Service: 08/27/24 Procedure(s): XR femur LT 2V Accession Number(s): [id number] cc: Hilton Lackey NP, NP; Ranjit Kebede MD~ Examination: Left femur 2 views Technique: AP lateral left femur 2 views Indications: Patient fell today with injury to the femur, leg pain Findings: No hip fracture or dislocation Shaft of the femur intact Impression: No acute fracture Dictated By:Ranjit Kebede MD Signed By:<Electronically signed by Ranjit Kebede MD in OV>08/27/24 1252 Ordering Physician: Ziyad RAJAN),Hilton HOBBS Date of Service: 08/27/24 Procedure(s): XR hip LT w pelvis 2-3V Accession Number(s): [id number] cc: Ziyad RAJAN),Hilton HOBBS; Ranjit Kebede MD~ Examination:Left hip AP, lateral, AP pelvis 3 views Technique: Hip AP lateral, AP pelvis, 3 views Exam date and time: August 27, 2024 1129 hrs. Indication: Patient fell today with injury to the Findings: No acute fracture or dislocation Old fractures of the inferior pubic rami Right hip intact Impression: No acute left hip fracture Dictated By:Ranjit Kebede MD Signed By:<Electronically signed by Ranjit Kebede MD in OV>08/27/24 1252 Medications / Prescriptions Medications or Prescriptions considered but not ordered:: None Medication administrations:: Medication Administration History Discontinued Medications Hydrocodone Bitart/Acetaminophen (Hydrocodone/Apap 10/325 Tab) 1 tab PO X1 ONE Stop: 08/27/24 14:06 Last Admin: 08/27/24 14:40 Dose: 1 tab Documented By: SM See above Consultations Consultation(s) initiated? (list below): No Diagnosis Fall Differential Diagnosis: syncope, dislocation of shoulder region and compression fracture Most likely diagnosis given after review of the tests above:: Symptomatic anemia Lef thip contusion Admission Indicated Admission indicated?: not indicated Admission Request Was there a request for admission?: No Disposition Plan Disposition Plan: Discharge Discharge Attestation Discharge Attestation: The patient and all family members were given an opportunity to ask questions and understood the discharge instructions. Discharge instructions specifically effects, indications for sooner follow up or return to the emergency department, and the expected course of current diagnosis. Patient condition: Stable Discharge Plan Plan Patient Disposition: HOME (Self Care) Prescriptions/Referrals Prescriptions/Med Rec: No Action ziprasidone HCl [Geodon] 80 mg Capsule 80 mg PO BID venlafaxine 75 mg Tablet 75 mg PO TID acetaminophen [Tylenol Extra Strength] 500 mg tablet 1,000 mg PO Q6H PRN (Reason: fever or pain) Qty: 30 0RF Percogesic 12.5-325 mg tablet 1 tab PO BID Qty: 7 0RF Xarelto 20 mg Tablet 20 mg PO QDAY Rx Instructions: must administer with evening meal donepezil [Aricept] 5 mg Tablet 5 mg PO QDAY famotidine 20 mg Tablet 20 mg PO QDAY levothyroxine 150 mcg Tablet 150 mcg PO QDAY docusate sodium 100 mg Capsule PO lisinopril 10 mg tablet 10 mg PO QDAY Qty: 30 0RF meloxicam 7.5 mg tablet 7.5 mg PO QDAY Qty: 10 0RF acetaminophen-codeine 300-30 mg tablet 1 tab PO TID PRN (Reason: pain) Qty: 20 0RF acetaminophen-codeine 300-30 mg tablet 1 tab PO TID PRN (Reason: pain) Qty: 20 0RF ferrous sulfate [FeroSul] 325 mg (65 mg iron) tablet 325 mg PO BID Patient Comments: TAKE ONE TABLET BY MOUTH WITH ORANGE JUICE TWICE DAILY VITAMIN lamotrigine 25 mg tablet 50 mg PO HS Patient Comments: TAKE TWO TABLETS BY MOUTH EVERY DAY tizanidine 2 mg tablet 2 mg PO Q12HR PRN (Reason: Muscle Spasm) Patient Comments: TAKE ONE TABLET BY MOUTH EVERY 12 hours NEEDED FOR MUSCLE spasm DO not exceed THREE doses in 24 hours clonazepam 1 mg tablet 1 mg PO BID Patient Comments: TAKE ONE TABLET BY MOUTH TWICE DAILY FOR ANXIETY docusate sodium [Stool Softener] 250 mg Capsule 250 mg PO HSPRN PRN (Reason: Constipation) atorvastatin 40 mg tablet 40 mg PO HS Patient Comments: TAKE ONE TABLET BY MOUTH AT BEDTIME FOR CHOLESTEROL cetirizine 10 mg tablet 10 mg PO DAILY PRN (Reason: Allergy Symptoms) Patient Comments: TAKE ONE TABLET BY MOUTH EVERY DAY NEEDED FOR ALLERGY potassium chloride 10 mEq tablet extended release 10 meq PO DAILY Patient Comments: TAKE ONE TABLET BY MOUTH EVERY DAY WITH FOOD pregabalin 75 mg capsule 75 mg PO TID PRN (Reason: Pain) Patient Comments: TAKE ONE CAPSULE BY MOUTH THREE TIMES DAILY NEEDED FOR PAIN clopidogrel 75 mg tablet 75 mg PO DAILY Patient Comments: TAKE ONE TABLET BY MOUTH EVERY DAY FOR THE HEART hydrocodone-acetaminophen 10-325 mg Tablet 1 tab PO TID PRN (Reason: pain) hydrocodone-acetaminophen 5-325 mg tablet 1 tab PO BID MDD 10 PRN (Reason: pain) Qty: 10 0RF Referrals: Carlee Ovalle PA-C [Primary Care Provider] - In 1 week Problem List Clinical Impression: Symptomatic anemia, Contusion of hip Patient/Caregiver Discharge Instructions Education Materials: ED Anemia Type Not Specified, ED Hip Contusion Additional Instructions: Follow-up with your primary care doctor in 2 to 3 days for recheck. You can return to the emergency department sooner if symptoms worsen or if you notice any new, concerning issues. Print Language: Serbian Stand Alone Forms: [employer] Award Info., Patient Portal Info Letter
[2024-08-27 16:37] LABS: Occult Blood, Stool Negative (Negative)
--- NOTE | 2024-08-27 16:49 | PC.NURSE ---
pt reported a lot of generalized weakness thats been occuring for the last couple days
--- NOTE | 2024-08-27 17:35 | PC.NURSE ---
blood transfusion started. rn at bedside
--- NOTE | 2024-08-27 17:43 | PC.NURSE ---
pt reported feeling light headed. transfusion stopped. assessed pt. vitals are normal. blood transfusion continued
== END 2024-08-27 20:10 | disposition home or self-care (01) ==
PROVIDERS: Nurse Practitioner Primary Care; Emergency Provider Emergency Medicine; PCP Physician Assistant Medical
DX: D64.9 Anemia, unspecified (principal); S70.02XA Contusion of left hip, initial encounter; S29.9XXA Unspecified injury of thorax, initial encounter; S79.922A Unspecified injury of left thigh, initial encounter; I45.10 Unspecified right bundle-branch block; F17.210 Nicotine dependence, cigarettes, uncomplicated; I10 Essential (primary) hypertension; W19.XXXA Unspecified fall, initial encounter; Z99.3 Dependence on wheelchair
CPT/HCPCS: 36415; 36430; 71045; 73502; 73552; 80053; 82270; 84484; 85025; 86850; 86900; 86901; 86923; 93005; 99285; P9016; A9270

== ENCOUNTER 2024-09-07 15:00 | Emergency (ER) | payer MEDICAID, SELFPAY ==
[2024-09-07 15:10] VITALS: BP 90/54; BP 95/54; PULSE 82; RESP 18; TEMP 37.1; O2SAT 98
--- NOTE | 2024-09-07 15:17 | XR_ITS ---
Examination: CT pelvis left hip without intravenous contrast. 2-D sagittal and coronal reconstructions. Date and time of exam:September 07, 2024 1524 hours INDICATIONS: Patient fell today with injury to left hip, left hip pain CTDI: vol (mGy) :11.9 DLP: (mGycm) : 444 Technique: Multiple 3 mm axial sections of the pelvis have been obtained with the 64 slice high resolution scanner. 2-D sagittal and coronal reconstructions. Low dose protocols were performed. One or more of the following dose reduction techniques were used; automated exposure control, adjustment of the mA and/or KV according to patient size, use of iterative reconstruction technique. Findings: Moderate osteopenia No left hip fracture or dislocation Right hip bones of the pelvis intact Sacral segments intact, old fractures inferior pubic rami No pelvic hematoma IMPRESSION: No acute hip or pelvic fracture
--- NOTE | 2024-09-07 15:25 | PD.EDRME ---
Rapid Medical Screening Exam RME Arrival date/time: 09/07/24 15:00 64-year-old female presents to the emergency department for complaints of left hip pain Chief Complaint: Hip Injury/Pain Vital signs: Vital Signs Temperature 98.7 F 09/07/24 15:10 Pulse Rate 82 09/07/24 15:10 Respiratory Rate 18 09/07/24 15:10 Blood Pressure 90/54 L 09/07/24 15:10 Pulse Oximetry (%) 98 09/07/24 15:10 Oxygen Delivery Method Room Air 09/07/24 15:10
[2024-09-07 16:07] LABS: Basophils # (Auto) 0.1 Thou/mm3 (0.0-0.2); Basophils % (Auto) 1 % (0-2.5); Eosinophils # (Auto) 0.3 Thou/mm3 (0.0-0.5); Eosinophils % (Auto) 3 % (0-10); Immature Granulocytes % (Auto) 0 % (0-0); Immature Granulocytes Auto 0.01 Thou/mm3 (0.00-0.00); Lymphocytes # (Auto) 2.7 Thou/mm3 (1.0-4.8); Lymphocytes % (Auto) 30 % (10-50); Mean Corpuscular HGB Conc 31.9 g/dl (31.0-37.0); Mean Corpuscular Hemoglobin 27.4 pg (25.0-35.0); Mean Corpuscular Volume 86 fL (80-100); Monocytes # (Auto) 0.8 Thou/mm3 (0.0-0.8); Monocytes % (Auto) 9 % (0-12); Neutrophils # (Auto) 4.9 Thou/mm3 (1.8-7.7); Neutrophils % (Auto) 56 % (37-80); Nucleated Red Blood Cell % 0 /100 WBC (0); Platelet Count 326 Thou/mm3 (140-440); RDW Standard Deviation 50.4 fL (36.4-46.3); Red Blood Count 3.03 Miln/mm3 (4.00-5.20); White Blood Count 8.7 Thou/mm3 (3.6-11.0)
[2024-09-07] MEDS: LORazepam 0.5 MG TABLET 1 MG PO (16:10)
[2024-09-07 16:15] LABS: Hemoglobin 8.3 g/dL (12.0-16.0)
[2024-09-07 16:40] LABS: Prothrombin Time 10.9 Seconds (9.0-12.2)
[2024-09-07 16:52] LABS: Alanine Aminotransferase 7 U/L (10-49); Albumin/Globulin Ratio 1.5 (1.2-2.2); Alkaline Phosphatase 63 U/L (46-116); Anion Gap 7 (7-16); Aspartate Amino Transferase 15 U/L (0-34); BUN/Creatinine Ratio 15 Ratio (12-20); Bilirubin,Total 0.2 mg/dL (0.3-1.2); Blood Urea Nitrogen 23 mg/dL (9-23); Calcium 9.6 mg/dL (8.3-10.6); Calcium (Corrected) 9.6 mg/dL (8.5-10.1); Carbon Dioxide 25.3 mMol/L (20.0-31.0); Chloride 111 mMol/L (98-107); Creatinine (Component) 1.5 mg/dL (0.6-1.3); Globulin 2.6 gm/dL (2.3-3.5); Glucose 102 mg/dL (74-106); Osmolality,Calculated 288 (275-295); Potassium 4.4 mMol/L (3.4-5.1); Sodium 143 mMol/L (136-145); Total Protein 6.6 gm/dL (5.7-8.2); eGFR 39 See Note
[2024-09-07 17:15] LABS: Collection Type, Urine Clean Catch
[2024-09-07 17:24] LABS: Bacteria,Urine Rare; Bilirubin,Urine Negative (Negative); Blood,Urine Negative (Negative); Clarity,Urine Clear (Clear/Hazy); Color,Urine Lt-Yellow (Lt Yel-Yel); Culture Indicated,Urine Not Indicated; Glucose, Urine Negative (Negative); Ketones,Urine Negative (Negative); Leukocyte Esterase,Urine Negative (Negative); Nitrite,Urine Negative (Negative); Protein,Urine Negative (Neg - Trace); RBC,Urine < 1 /hpf (0-3); Specific Gravity,Urine 1.018 (1.001-1.035); Squamous Epithelial Cell,Urine 1 /hpf (0-5); Urobilinogen,Urine Negative mg/dL (0.0-1.0); WBC,Urine 1 /hpf (0-5)
--- NOTE | 2024-09-07 19:15 | PD.EDHIP ---
Lower Extremity Injury RME/HPI General Chief Complaint: Hip Injury/Pain Stated Complaint: LEFT HIP/LEG PAIN Time Seen by Provider: 09/07/24 18:02 Arrival date/time: 09/07/24 15:00 RME / HPI RME / HPI Narrative: 64-year-old female presents to the emergency department for complaints of left hip pain. This been ongoing for several days, severity of symptoms moderate. Patient denies any trauma or fall denies any fever denies any other complaints. No medication was taken prior trauma patient Related Data Home Medications ?Medication ?Instructions ?Recorded ?Confirmed ziprasidone HCl 80 mg capsule 80 mg PO BID 04/05/19 02/04/24 (Geodon) venlafaxine 75 mg tablet 75 mg PO TID 12/04/20 02/04/24 atorvastatin 40 mg tablet 40 mg PO HS 03/27/23 02/04/24 cetirizine 10 mg tablet 10 mg PO DAILY PRN Allergy Symptoms 03/27/23 04/16/23 clonazepam 1 mg tablet 1 mg PO BID 03/27/23 04/16/23 docusate sodium 250 mg capsule 250 mg PO HSPRN PRN Constipation 03/27/23 04/16/23 (Stool Softener) ferrous sulfate 325 mg (65 mg 325 mg PO BID 03/27/23 04/16/23 iron) tablet (FeroSul) lamotrigine 25 mg tablet 50 mg PO HS 03/27/23 02/04/24 potassium chloride 10 mEq 10 meq PO DAILY 03/27/23 04/16/23 tablet,extended release pregabalin 75 mg capsule 75 mg PO TID PRN Pain 03/27/23 02/04/24 tizanidine 2 mg tablet 2 mg PO Q12HR PRN Muscle Spasm 03/27/23 02/04/24 clopidogrel 75 mg tablet 75 mg PO DAILY 04/16/23 04/16/23 hydrocodone 10 mg-acetaminophen 1 tab PO TID PRN pain 04/17/23 02/04/24 325 mg tablet docusate sodium 100 mg capsule mg PO 02/04/24 donepezil 5 mg tablet (Aricept) 5 mg PO QDAY 02/04/24 02/04/24 famotidine 20 mg tablet 20 mg PO QDAY 02/04/24 02/04/24 levothyroxine 150 mcg tablet 150 mcg PO QDAY 02/04/24 02/04/24 rivaroxaban 20 mg tablet (Xarelto) 20 mg PO QDAY 02/04/24 02/04/24 Previous Rx's ?Medication ?Instructions ?Recorded acetaminophen 500 mg tablet 1,000 mg (2 x 500 mg) PO Q6H PRN 07/05/23 (Tylenol Extra Strength) fever or pain #30 tabs diphenhydramine 12.5 1 tab PO BID #7 tabs 01/19/24 mg-acetaminophen 325 mg tablet (Percogesic) lisinopril 10 mg tablet 10 mg PO QDAY #30 tabs 04/21/24 meloxicam 7.5 mg tablet 7.5 mg PO QDAY #10 tabs 05/02/24 hydrocodone 5 mg-acetaminophen 325 1 tab PO BID PRN pain #10 tabs 06/01/24 mg tablet acetaminophen 300 mg-codeine 30 mg 1 tab PO TID PRN pain #20 tabs 06/22/24 tablet acetaminophen 300 mg-codeine 30 mg 1 tab PO TID PRN pain #20 tabs 06/22/24 tablet meloxicam 15 mg tablet 15 mg PO QDAY #30 tabs 09/07/24 Allergies Allergy/AdvReac Type Severity Reaction Status Date / Time diphenhydramine Allergy Severe ITCHING Verified 08/27/24 11:12 ketorolac Allergy Severe ITCHING Verified 08/27/24 11:12 Penicillins Allergy Severe ITCH Verified 08/27/24 11:12 sumatriptan succinate Allergy Severe ITCHING, Verified 08/27/24 11:12 VOMITING propranolol Allergy Unknown Verified 08/27/24 11:12 codeine AdvReac Severe Vomiting Verified 08/27/24 11:12 Review of Systems Review of Systems Narrative Review of Systems: Review of system reviewed and within normal limits except mentioned in HPI ED Exam Narrative Physical exam: VITAL SIGNS: Reviewed. GENERAL APPEARANCE: Alert and interactive, follows commands, no acute distress, HEAD AND FACE: Non-traumatic. ENT: PERRL, pink conjunctivitis, eyelid no trauma, Mucous membrane moist. NECK: Supple, nontender, no nuchal rigidity. CHEST: No tenderness, no crepitus, no paradoxical movement, no retractions. LUNGS: Clear, well ventilated, symmetric, no rales, no wheezing, no ronchi, no stridor, good breath sounds bilaterally. HEART: Regular rate, regular rhythm, no murmur, no gallops. ABDOMEN: Soft, positive bowel sounds, nondistended, no guarding, nontender, no rebound, no masses, RECTAL: Deferred. GENITAL: Deferred. NEUROLOGICAL: Gross motor function intact sensory function intact, Appropriate for age. MUSCULOSKELETAL: low back nontender, full range of motion. EXTREMITIES: Left hip tenderness no redness no swelling full range of motion. SKIN: Color pink, dry, no rash, no lacerations, no abrasions, no contusions. LYMPHATICS: Deferred. Course Quality Measures none Orders Category Date Time Status CT hip LT wo con Stat Exams 09/07/24 15:17 Completed CBC Stat Lab 09/07/24 15:55 Completed Comprehensive Metabolic Panel Stat Lab 09/07/24 15:55 Completed Partial Thromboplastin Time Stat Lab 09/07/24 15:55 Completed Prothrombin Time with INR Stat Lab 09/07/24 15:55 Completed Type and Screen Stat Lab 09/07/24 15:55 Completed UA, C/S IF [Urinalysis, C/S if Indicated] Stat Lab 09/07/24 16:50 Completed LORazepam [Ativan] Med 09/07/24 16:02 Discontinued 1 mg PO X1 ONE Vital Signs Vital signs: Vital Signs Temperature 98.7 F 09/07/24 15:10 Pulse Rate 82 09/07/24 15:10 Respiratory Rate 18 09/07/24 15:10 Blood Pressure 90/54 L 09/07/24 15:10 Pulse Oximetry (%) 98 09/07/24 15:10 Oxygen Delivery Method Room Air 09/07/24 15:10 Extremity Injury, Lower MDM Narrative MDM Narrative:: 64-year-old female presents to the emergency department for complaints of left hip pain. This been ongoing for several days, severity of symptoms moderate. Patient denies any trauma or fall denies any fever denies any other complaints. No medication was taken prior trauma patient Patient's workup today all came back unremarkable. Including CT scan of the hip also. Results discussed with the patient. Patient blood pressure was noted to be 95/54 prior to discharge. And patient is not having any symptoms, no dizziness, no headache Patient data External records reviewed:: None Clinical information provided by:: patient Social determinants that could affect healthcare access:: none Patient has the following chronic illnesses:: CKD, diabetes mellitus How is presenting disease/condition affected by chronic disease/condition?: exacerbated by Evaluation data The following diagnostics were reviewed and interpreted by me:: lab results and radiology exam(s) Lab and/or radiology exams considered but not ordered:: None Interpretation Summary: See results in [facility] Medications / Prescriptions Medications or Prescriptions considered but not ordered:: None Medication administrations:: Medication Administration History Discontinued Medications Lorazepam (Lorazepam 0.5 Mg Tablet) 1 mg PO X1 ONE Stop: 09/07/24 16:03 Last Admin: 09/07/24 16:10 Dose: 1 mg Documented By: Ativan Consultations Consultation(s) initiated? (list below): No Diagnosis Extremity Injury, Lower Differential Diagnosis: fracture of femur and fracture of hip Most likely diagnosis given after review of the tests above:: Chronic hip pain Admission Indicated Admission indicated?: not indicated Admission Request Was there a request for admission?: No Disposition Plan Disposition Plan: Discharge Discharge Attestation Discharge Attestation: The patient was given an opportunity to ask questions and understood the discharge instructions. Discharge instructions specifically effects, indications for sooner follow up or return to the emergency department, and the expected course of current diagnosis. Patient condition: Stable Discharge Plan Plan Patient Disposition: HOME (Self Care) Disposition Comment: stable Prescriptions/Referrals Prescriptions/Med Rec: New meloxicam 15 mg tablet 15 mg PO QDAY Qty: 30 0RF No Action ziprasidone HCl [Geodon] 80 mg Capsule 80 mg PO BID venlafaxine 75 mg Tablet 75 mg PO TID acetaminophen [Tylenol Extra Strength] 500 mg tablet 1,000 mg PO Q6H PRN (Reason: fever or pain) Qty: 30 0RF Percogesic 12.5-325 mg tablet 1 tab PO BID Qty: 7 0RF Xarelto 20 mg Tablet 20 mg PO QDAY Rx Instructions: must administer with evening meal donepezil [Aricept] 5 mg Tablet 5 mg PO QDAY famotidine 20 mg Tablet 20 mg PO QDAY levothyroxine 150 mcg Tablet 150 mcg PO QDAY docusate sodium 100 mg Capsule PO lisinopril 10 mg tablet 10 mg PO QDAY Qty: 30 0RF meloxicam 7.5 mg tablet 7.5 mg PO QDAY Qty: 10 0RF acetaminophen-codeine 300-30 mg tablet 1 tab PO TID PRN (Reason: pain) Qty: 20 0RF acetaminophen-codeine 300-30 mg tablet 1 tab PO TID PRN (Reason: pain) Qty: 20 0RF ferrous sulfate [FeroSul] 325 mg (65 mg iron) tablet 325 mg PO BID Patient Comments: TAKE ONE TABLET BY MOUTH WITH ORANGE JUICE TWICE DAILY VITAMIN lamotrigine 25 mg tablet 50 mg PO HS Patient Comments: TAKE TWO TABLETS BY MOUTH EVERY DAY tizanidine 2 mg tablet 2 mg PO Q12HR PRN (Reason: Muscle Spasm) Patient Comments: TAKE ONE TABLET BY MOUTH EVERY 12 hours NEEDED FOR MUSCLE spasm DO not exceed THREE doses in 24 hours clonazepam 1 mg tablet 1 mg PO BID Patient Comments: TAKE ONE TABLET BY MOUTH TWICE DAILY FOR ANXIETY docusate sodium [Stool Softener] 250 mg Capsule 250 mg PO HSPRN PRN (Reason: Constipation) atorvastatin 40 mg tablet 40 mg PO HS Patient Comments: TAKE ONE TABLET BY MOUTH AT BEDTIME FOR CHOLESTEROL cetirizine 10 mg tablet 10 mg PO DAILY PRN (Reason: Allergy Symptoms) Patient Comments: TAKE ONE TABLET BY MOUTH EVERY DAY NEEDED FOR ALLERGY potassium chloride 10 mEq tablet extended release 10 meq PO DAILY Patient Comments: TAKE ONE TABLET BY MOUTH EVERY DAY WITH FOOD pregabalin 75 mg capsule 75 mg PO TID PRN (Reason: Pain) Patient Comments: TAKE ONE CAPSULE BY MOUTH THREE TIMES DAILY NEEDED FOR PAIN clopidogrel 75 mg tablet 75 mg PO DAILY Patient Comments: TAKE ONE TABLET BY MOUTH EVERY DAY FOR THE HEART hydrocodone-acetaminophen 10-325 mg Tablet 1 tab PO TID PRN (Reason: pain) hydrocodone-acetaminophen 5-325 mg tablet 1 tab PO BID MDD 10 PRN (Reason: pain) Qty: 10 0RF Referrals: Carlee Ovalle PA-C [Primary Care Provider] - In 1 week Problem List Clinical Impression: Chronic hip pain Patient/Caregiver Discharge Instructions Discharge Activity: activity as tolerated Education Materials: ED Chronic Pain Additional Instructions: Thank you for the opportunity for serving you today. You are stable for discharged . You are advised to: Follow-up with your PCP in 1 to 2 days Return to ED for worsening of symptoms Increase oral fluids Take medication as prescribed Print Language: Citizen Of [place] Stand Alone Forms: Fany Award Info., Patient Portal Info Letter RAMESH/PIERCE Supervising Physician RAMESH/PIERCE Supervising Physician: MD Reinier
[2024-09-07 19:38] VITALS: BP 104/63; PULSE 68; RESP 17; TEMP 37; O2SAT 98
== END 2024-09-07 19:39 | disposition home or self-care (01) ==
PROVIDERS: Nurse Practitioner Primary Care; Emergency Provider Emergency Medicine; PCP Physician Assistant Medical
DX: G89.29 Other chronic pain (principal); M25.552 Pain in left hip
CPT/HCPCS: 36415; 73700; 80053; 81001; 85025; 85610; 85730; 86850; 86900; 86901; 99284; A9270

== ENCOUNTER 2024-09-09 16:33 | Inpatient (IN) | payer MEDICAID, SELFPAY ==
[2024-09-09 16:53] VITALS: BP 115/74; PULSE 104; RESP 18; TEMP 37.4; O2SAT 99; BMI 32.2
--- NOTE | 2024-09-09 16:56 | XR_ITS ---
Examination: CT abdomen and pelvis without contrast. Coronal 3-D reconstructions. Sagittal 2-D reconstructions. Date and time of exam:September 09, 2024 1710 hours COMPARISON: September 07, 2024 CT of study INDICATIONS: Mid abdominal pain beginning 2 weeks ago CTDI: vol (mGy): 12.8 DLP: (mGycm): 637 Technique: Axial images of the abdomen have been obtained, 3 mm slice thickness Intravenous contrast material has not been administered. Low dose protocols were performed. One or more of the following dose reduction techniques were used; automated exposure control, adjustment of the mA and/or KV according to patient size, use of iterative reconstruction technique. Findings: No focal liver lesions or biliary tract dilatation Absent gallbladder No extrahepatic biliary tract dilatation Spleen is not enlarged Retrocardiac small gastric hernia No adrenal mass Multiple bilateral renal cysts, the largest anterior left kidney 33 mm 4 mm soft calcification lower right kidney Abdominal aortic calcification no aneurysm dilatation Multiple mildly fluid distended small bowel loops No pericecal inflammatory change No diverticulitis Absent uterus Urinary bladder intact Prominent lumbar levoscoliosis Transpedicular lumbar fusion L3-L5 with satisfactory alignment Advanced degenerative disc disease above the fusion site L2-L3 Hips appear intact as well as bones of the pelvis, old fracture first coccygeal segment IMPRESSION: Multiple bilateral renal cysts 4 mm soft calcification lower anterior right kidney, no hydronephrosis or ureteral calculi Multiple mildly fluid distended small bowel loops, consider ileus, enteritis such as Crohn's disease
--- NOTE | 2024-09-09 16:56 | PD.EDRME ---
Rapid Medical Screening Exam E Arrival date/time: 09/09/24 16:33 64-year-old female with a history of hyperlipidemia, hypertension, presents to the emergency room with a chief complaint of 8 out of 10 abdominal pain, weakness, fatigue, and to check her hemoglobin level as she has a history of it being low and requires blood transfusions. I have greeted and performed a focused initial assessment of this patient. A comprehensive ED assessment and evaluation of the patient, analysis of all test results, and completion of the medical decision making process will be conducted by additional ED providers. Chief Complaint: Abdominal Pain Vital signs: Vital Signs Temperature 99.3 F 09/09/24 16:53 Pulse Rate 104 H 09/09/24 16:53 Respiratory Rate 18 09/09/24 16:53 Blood Pressure 115/74 09/09/24 16:53 Pulse Oximetry (%) 99 09/09/24 16:53 Oxygen Delivery Method Room Air 09/09/24 16:53 Vital signs reviewed by provider: Yes
[2024-09-09 17:17] LABS: Basophils # (Auto) 0.1 Thou/mm3 (0.0-0.2); Basophils % (Auto) 1 % (0-2.5); Eosinophils # (Auto) 0.3 Thou/mm3 (0.0-0.5); Eosinophils % (Auto) 3 % (0-10); Hematocrit 24.5 % (36.0-46.0); Immature Granulocytes % (Auto) 1 % (0-0); Immature Granulocytes Auto 0.04 Thou/mm3 (0.00-0.00); Lymphocytes # (Auto) 2.2 Thou/mm3 (1.0-4.8); Lymphocytes % (Auto) 26 % (10-50); Mean Corpuscular HGB Conc 31.8 g/dl (31.0-37.0); Mean Corpuscular Volume 85 fL (80-100); Monocytes # (Auto) 0.8 Thou/mm3 (0.0-0.8); Monocytes % (Auto) 9 % (0-12); Neutrophils # (Auto) 5.2 Thou/mm3 (1.8-7.7); Neutrophils % (Auto) 61 % (37-80); Nucleated Red Blood Cell % 0 /100 WBC (0); Platelet Count 329 Thou/mm3 (140-440); RDW Standard Deviation 51.7 fL (36.4-46.3); Red Blood Count 2.89 Miln/mm3 (4.00-5.20); White Blood Count 8.5 Thou/mm3 (3.6-11.0)
[2024-09-09 17:19] LABS: Hemoglobin 7.8 g/dL (12.0-16.0)
[2024-09-09 17:32] LABS: Partial Thromboplastin Time 27.5 Seconds (22.0-36.0); Prothrombin Time 10.8 Seconds (9.0-12.2)
[2024-09-09 17:48] LABS: Alanine Aminotransferase 7 U/L (10-49); Albumin, Serum 3.8 gm/dL (3.4-4.8); Albumin/Globulin Ratio 1.5 (1.2-2.2); Alkaline Phosphatase 61 U/L (46-116); Anion Gap 8 (7-16); Aspartate Amino Transferase 16 U/L (0-34); BUN/Creatinine Ratio 11 Ratio (12-20); Bilirubin,Total 0.2 mg/dL (0.3-1.2); Blood Urea Nitrogen 15 mg/dL (9-23); Calcium 8.9 mg/dL (8.3-10.6); Calcium (Corrected) 9.1 mg/dL (8.5-10.1); Carbon Dioxide 23.2 mMol/L (20.0-31.0); Chloride 111 mMol/L (98-107); Creatinine (Component) 1.4 mg/dL (0.6-1.3); Estimated Creatinine Clearance 37.6 mL/min (>60); Globulin 2.6 gm/dL (2.3-3.5); Glucose 95 mg/dL (74-106); Lipase 36 U/L (12-53); Osmolality,Calculated 283 (275-295); Potassium 4.6 mMol/L (3.4-5.1); Sodium 142 mMol/L (136-145); Total Protein 6.4 gm/dL (5.7-8.2); eGFR 43 See Note
[2024-09-09 18:22] VITALS: BP 113/75; PULSE 86; RESP 18; TEMP 37.3; O2SAT 98
[2024-09-09 19:19] LABS: Collection Type, Urine Clean Catch
[2024-09-09 19:43] LABS: Bacteria,Urine 3+; Bilirubin,Urine Negative (Negative); Blood,Urine Negative (Negative); Clarity,Urine Clear (Clear/Hazy); Color,Urine Lt-Yellow (Lt Yel-Yel); Glucose, Urine Negative (Negative); Ketones,Urine Negative (Negative); Leukocyte Esterase,Urine Negative (Negative); Nitrite,Urine Negative (Negative); PH,Urine 6.5 (5.0-7.0); Protein,Urine Negative (Neg - Trace); RBC,Urine 6 /hpf (0-3); Specific Gravity,Urine 1.013 (1.001-1.035); Squamous Epithelial Cell,Urine 5 /hpf (0-5); Urobilinogen,Urine Negative mg/dL (0.0-1.0); WBC,Urine 12 /hpf (0-5)
[2024-09-09 20:45] VITALS: BP 127/60; PULSE 61; RESP 16; TEMP 36.8; O2SAT 100
--- NOTE | 2024-09-09 21:05 | EDNOTE_ITS ---
<Statement entered by Soledad Rodriguez MD - 09/11/24 05:38> I, Soledad Rodriguez MD, have reviewed the history, exam, and assessment of the patient. I have evaluated the patient independently and agree with the plan of care documented by [ ]. All diagnostic studies were reviewed and discussed. I confirm the diagnosis as documented by the Resident. I was present during the Medical Decision Making for this patient. The patient's plan of care was created between myself and the Resident and consistent with our discussion of the patient's case. ED General RME/HPI General Chief complaint: Abdominal Pain Stated complaint: ABD PAIN WITH LOW HGB PER PRIMARY Time Seen by Provider: 09/09/24 18:11 Arrival date/time: 09/09/24 16:33 RME / HPI RME / HPI narrative: 09/09/24 16:33 Patient 64-year-old female with past medical history of stroke, ?Hx of DVT left upper extremity on Xarelto, back surgery, anxiety, hypertension, bipolar disorder presented to the ER with chief complaint of abdominal discomfort and black tarry stool x 2 weeks ago. She reported that she has been having abdominal discomfort from couple of days and she saw her PCP Dr. Thao in [place] as outpatient and was not able to get EGD or colonoscopy in outpatient set up. She takes [place] 10/325 for chronic back pain, hip pain and leg pain. She also reported to have painful urination associated with burning sensation. She had 1 bowel movement this morning which was black in color. She reported that she had clot in her left upper extremity however did not know that if it resolved and was still taking Xarelto. Vitals were stable. Labs revealed stable white count. Hemoglobin has been downtrending since April 2024 and was 7.8 today. CHEM panel was unremarkable. Mild GALE with kidney functions showed BUN 59 creatinine 1.4 GFR 43. Liver enzymes unremarkable. UA showed mild RBCs and WBCs with bacteria. CT abdomen showed 4 mm soft calcification lower anterior right kidney. Multiple mildly fluid distended small bowel loops. GI specialist, Dr. John was consulted and he stated that admit the patient and he will likely do EGD tomorrow morning. We ordered Protonix, bolus of fluids and hospitalist team was called for admission. PMH as above PSH back surgeries SH patient quit drinking alcohol a year ago. Denies smoking. Home medications: Tylenol, atorvastatin, sertraline, clonazepam, Xarelto, donepezil, pregabalin I have greeted and performed a focused initial assessment of this patient. A comprehensive ED assessment and evaluation of the patient, analysis of all test results, and completion of the medical decision making process will be conducted by additional ED providers. complaint: Black tarry stool and abdominal pain Onset (ago): week(s) (2) Location: abdomen Radiation: non-radiation Severity: moderate Severity scale (1-10): 6 Quality: dull Consistency: constant Associated symptoms: other (black tarry stool ) Related Data Home Medications ?Medication ?Instructions ?Recorded ?Confirmed ziprasidone HCl 80 mg capsule 80 mg PO BID 04/05/19 (Geodon) venlafaxine 75 mg tablet 75 mg PO TID 12/04/20 atorvastatin 40 mg tablet 40 mg PO HS 03/27/23 4 cetirizine 10 mg tablet 10 mg PO DAILY PRN Allergy S ymptoms 03/27/23 04/16/23 clonazepam 1 mg tablet 1 mg PO BID 03/27/23 3 docusate sodium 250 mg capsule 250 mg PO HSPRN PRN Con stipation 03/27/23 04/16/23 (Stool Softener) ferrous sulfate 325 mg (65 mg 325 mg PO BID 03/27/23 1 06/17/22 iron) tablet (FeroSul) lamotrigine 25 mg tablet 50 mg PO HS 03/27/23 4 potassium chloride 10 mEq 10 meq PO DAILY 03/27/2311/30 tablet,extended release pregabalin 75 mg capsule 75 mg PO TID PRN Pain 02/04/24 tizanidine 2 mg tablet 2 mg PO Q12HR PRN Muscle Spa sm 03/27/23 02/04/24 clopidogrel 75 mg tablet 75 mg PO DAILY 04/16/2311/30 hydrocodone 10 mg-acetaminophen 1 tab PO TID PRN pain 04/17/23 02/04/24 325 mg tablet docusate sodium 100 mg capsule mg PO 02/04/24 donepezil 5 mg tablet (Aricept) 5 mg PO QDAY 02/04/24 02/04/24 famotidine 20 mg tablet 20 mg PO QDAY 02/04/2402/03 levothyroxine 150 mcg tablet 150 mcg PO QDAY 02/04/24 02/04/24 rivaroxaban 20 mg tablet (Xarelto) 20 mg PO QDAY 02/0302/04/24 Previous Rx's ?Medication ?Instructions ?Recorded acetaminophen 500 mg tablet 1,000 mg (2 x 500 mg) PO Q 6H PRN 07/05/23 (Tylenol Extra Strength) fever or pain #30 tabs diphenhydramine 12.5 1 tab PO BID #7 tabs 4 mg-acetaminophen 325 mg tablet (Percogesic) lisinopril 10 mg tablet 10 mg PO QDAY #30 tabs 04/21 meloxicam 7.5 mg tablet 7.5 mg PO QDAY #10 tabs 04/11 08/01 hydrocodone 5 mg-acetaminophen 325 1 tab PO BID PRN pa in #10 tabs 06/01/24 mg tablet acetaminophen 300 mg-codeine 30 mg 1 tab PO TID PRN pa in #20 tabs 06/22/24 tablet acetaminophen 300 mg-codeine 30 mg 1 tab PO TID PRN pa in #20 tabs 06/22/24 tablet meloxicam 15 mg tablet 15 mg PO QDAY #30 tabs 09/07 Allergies Allergy/AdvReac Type Severity Reaction Status Date / Time diphenhydramine Allergy Severe ITCHING Verified 09/09/24 16:37 ketorolac Allergy Severe ITCHING Verified 09/09/24 16:37 Penicillins Allergy Severe ITCH Verified 09/09/24 16:37 sumatriptan succinate Allergy Severe ITCHING, Verified 09/09/24 16:37 VOMITING propranolol Allergy Unknown Verified 09/09/24 16:37 codeine AdvReac Severe Vomiting Verified 09/09/24 16:37 Review of Systems Review of Systems Systems Reviewed: All systems reviewed, normal except as documented Past Medical History Past Medical History NEUROLOGIC: Positive Cerebrovascular Accident, Transient Ischemic Attacks (TIA), Seizures, Migraine and Head Trauma CARDIAC: Positive Hypercholesterolemia and Hypertension RESPIRATORY: Positive Chronic Obstructive Pulmonary Disease (COPD) and Asthma GASTROINTESTINAL: Positive Gastrointestinal Disorders, Cirrhosis, Ulcer, Gastroesophageal Reflux Disease and Obesity GENITOURINARY: Positive Genitourinary Disorders and Renal Disease REPRODUCTIVE: Positive Previous Pregnancies MUSCULOSKELETAL: Positive Musculoskeletal Disorders, Arthritis, Osteoporosis, Degenerative Disk Disease, Gout, Scoliosis, Fibromyalgia and Fractures ENT: Positive Head Trauma ENDOCRINE: Positive Endocrine Disorders and Hypothyroidism HEMATOLOGIC: Positive Anemia PSYCHO/SOCIAL: Positive Bipolar Disorder, Depression, Anxiety and Post Traumatic Stress Disorder OTHER HISTORY: Positive Falls, Blood Transfusions, Chemotherapy, Chicken Pox, Measles and Mumps Family History FAMILY HISTORY: Positive Family Cancer; Negative Family Respiratory Disorders, Family Surgery or Family Anesthesia Reaction Surgical History SURGICAL: Positive Endocrine Surgery, Thyroidectomy, Abdominal Surgery, Amputation, Open Reduction Internal Fixation, Hysterectomy and Section Social History SMOKING STATUS: Current every day smoker SECOND HAND EXPOSURE: No (vape) SUBSTANCE USE: does not use ED Exam Narrative Physical exam: GENERAL APPEARANCE: AxOx4, generally well-appearing female no acute distress. HEENT: NC, AT. Dry mucous membrane. EOMI, clear conjunctiva, oropharynx clear. NECK: Supple without lymphadenopathy. No stiffness or restricted ROM. HEART: Regular rate and regular rhythm, normal S1/S2, no m/r/g LUNGS: CTAB, moving air well. No crackles or wheezes are heard. ABDOMEN: Soft, epigastric tenderness, nondistended with good bowel sounds heard. BACK: No CVAT, no obvious deformity. EXTREMITIES: Without cyanosis, clubbing or edema. NEUROLOGICAL: Grossly nonfocal. Alert and oriented, moving all 4 extremities. CN not formally tested but appear grossly intact. Observed to ambulate with normal gait. Skin: Warm and dry without any rash. Psych: Mildly anxious however cooperative and interactive Course Quality Measures none Orders Category Date Time Status COVID-19 Screening Questionnaire NOW Care 09/09/24 21:11 Active Decision to Admit X1 Care 09/09/24 21:11 Active Occult Blood,Stool (Nursing) NOW Care 09/09/24 20:17 Active Consult to Gastroenterology Stat Cons 09/09/24 21:[address] abdomen pelvis wo con Stat Exams 09/09/24 16:56 Completed CBC Stat Lab 09/09/24 17:04 Completed CMP [Comprehensive Metabolic Panel] Stat Lab 09/09/24 17:04 Completed Lipase Stat Lab 09/09/24 17:04 Completed PT [Prothrombin Time with INR] Stat Lab 09/09/24 17:04 Completed PTT [Partial Thromboplastin Time] Stat Lab 09/09/24 17:04 Completed Type and Screen Stat Lab 09/09/24 17:04 Completed UA [Urinalysis] Stat Lab 09/09/24 19:06 Completed Urine Culture Stat Lab 09/09/24 19:06 Received HYDROcodone*/APAP 5/325 [[place] 5/325] Med 09/09/24 21:10 Discontinued 1 tab PO X1 ONE Pantoprazole Inj [Protonix Inj] Med 09/09/24 21:08 Discontinued 40 mg IV X1 ONE Ringers Lactated 1000 ml [Lactated Ringers] 1,000 ml Med 09/09/24 21:10 Active IV 75 mls/hr Ringers Lactated 1000 ml [Lactated Ringers] 1,000 ml Med 09/09/24 21:09 Active IV 999 mls/hr Vital Signs Vital signs: Vital Signs Temperature 99.3 F 09/09/24 16:53 Pulse Rate 104 H 09/09/24 16:53 Respiratory Rate 18 09/09/24 16:53 Blood Pressure 115/74 09/09/24 16:53 Pulse Oximetry (%) 99 09/09/24 16:53 Oxygen Delivery Method Room Air 09/09/24 16:53 Discharge Plan Plan Patient Disposition: Admit Acute Care w/in Hospital Prescriptions/Referrals Prescriptions/Med Rec: No Action ziprasidone HCl [Geodon] 80 mg Capsule 80 mg PO BID venlafaxine 75 mg Tablet 75 mg PO TID acetaminophen [Tylenol Extra Strength] 500 mg tablet 1,000 mg PO Q6H PRN (Reason: fever or pain) Qty: 30 0RF Percogesic 12.5-325 mg tablet 1 tab PO BID Qty: 7 0RF Xarelto 20 mg Tablet 20 mg PO QDAY Rx Instructions: must administer with evening meal donepezil [Aricept] 5 mg Tablet 5 mg PO QDAY famotidine 20 mg Tablet 20 mg PO QDAY levothyroxine 150 mcg Tablet 150 mcg PO QDAY docusate sodium 100 mg Capsule PO lisinopril 10 mg tablet 10 mg PO QDAY Qty: 30 0RF meloxicam 7.5 mg tablet 7.5 mg PO QDAY Qty: 10 0RF acetaminophen-codeine 300-30 mg tablet 1 tab PO TID PRN (Reason: pain) Qty: 20 0RF acetaminophen-codeine 300-30 mg tablet 1 tab PO TID PRN (Reason: pain) Qty: 20 0RF meloxicam 15 mg tablet 15 mg PO QDAY Qty: 30 0RF ferrous sulfate [FeroSul] 325 mg (65 mg iron) tablet 325 mg PO BID Patient Comments: TAKE ONE TABLET BY MOUTH WITH ORANGE JUICE TWICE DAILY VITAMIN lamotrigine 25 mg tablet 50 mg PO HS Patient Comments: TAKE TWO TABLETS BY MOUTH EVERY DAY tizanidine 2 mg tablet 2 mg PO Q12HR PRN (Reason: Muscle Spasm) Patient Comments: TAKE ONE TABLET BY MOUTH EVERY 12 hours NEEDED FOR MUSCLE spasm DO not exceed THREE doses in 24 hours clonazepam 1 mg tablet 1 mg PO BID Patient Comments: TAKE ONE TABLET BY MOUTH TWICE DAILY FOR ANXIETY docusate sodium [Stool Softener] 250 mg Capsule 250 mg PO HSPRN PRN (Reason: Constipation) atorvastatin 40 mg tablet 40 mg PO HS Patient Comments: TAKE ONE TABLET BY MOUTH AT BEDTIME FOR CHOLESTEROL cetirizine 10 mg tablet 10 mg PO DAILY PRN (Reason: Allergy Symptoms) Patient Comments: TAKE ONE TABLET BY MOUTH EVERY DAY NEEDED FOR ALLERGY potassium chloride 10 mEq tablet extended release 10 meq PO DAILY Patient Comments: TAKE ONE TABLET BY MOUTH EVERY DAY WITH FOOD pregabalin 75 mg capsule 75 mg PO TID PRN (Reason: Pain) Patient Comments: TAKE ONE CAPSULE BY MOUTH THREE TIMES DAILY NEEDED FOR PAIN clopidogrel 75 mg tablet 75 mg PO DAILY Patient Comments: TAKE ONE TABLET BY MOUTH EVERY DAY FOR THE HEART hydrocodone-acetaminophen 10-325 mg Tablet 1 tab PO TID PRN (Reason: pain) hydrocodone-acetaminophen 5-325 mg tablet 1 tab PO BID MDD 10 PRN (Reason: pain) Qty: 10 0RF Referrals: Carlee Ovalle PA-C [Primary Care Provider] - In 1 week Problem List Clinical Impression: Black tarry stools, Abdominal pain, GI (gastrointestinal bleed) Patient/Caregiver Discharge Instructions Print Language: Wolof Stand Alone Forms: Fany Award Info., Patient Portal Info Letter MD Attestation Attestation I, Dr. Rodriguez, have reviewed the history, exam, and assessment of the patient. I have evaluated the patient independently and agree with the plan of care documented by the resident Dr. fam. All diagnostic studies were reviewed and discussed. I confirm the diagnosis as documented by the resident. I was present during the Medical Decision Making for this patient. The patient?s plan of care was created between myself and the resident and consistent with our discussion of the patient?s case. MDM Medication Administration(s) Medication Administration History Lactated Ringer's (Lactated Ringers) 1,000 mls @ 999 mls/hr IV .Q1H1M ONE Stop: 09/09/24 22:09 Lactated Ringer's (Lactated Ringers) 1,000 mls @ 75 mls/hr IV .[id number] RYAN Stop: 10/09/24 21:09 Discontinued Medications Hydrocodone Bitart/Acetaminophen (Hydrocodone/Apap 5/325 Tablet) 1 tab PO X1 ONE Stop: 09/09/24 21:11 Pantoprazole Sodium (Pantoprazole Inj 40 Mg Vial) 40 mg IV X1 ONE Stop: 09/09/24 21:09
[2024-09-09] MEDS: HYDROcodone/APAP 5/325 TABLET 1 TAB PO (22:21)
[2024-09-09] MEDS: PANTOPRAZOLE INJ 40 MG VIAL IV (22:22)
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
[2024-09-09] MEDS: RINGERS LACTATED 1000 ML 1,000 ML 999 ML IV (22:29)
[2024-09-09 23:34] VITALS: BP 119/70; PULSE 59; RESP 17; TEMP 36.9; O2SAT 98
[2024-09-09] MEDS: RINGERS LACTATED 1000 ML 1,000 ML 75 ML IV (23:43)
[2024-09-10] VITALS (14 sets, daily range): BP systolic 105–133; BP diastolic 44–82; PULSE 44–85; RESP 16–97; TEMP 36.2–36.6; O2SAT 95–99; BMI 31.8; BMI 32.0
--- NOTE | 2024-09-10 00:01 | PC.NURSE ---
0000 REPORT CALLED TO ALEXEI GONZALEZ AT THIS TIME.
[2024-09-10] MEDS: HYDROcodone/APAP 5/325 TABLET 1 TAB PO (01:21)
[2024-09-10] MEDS: lamoTRIgine 25 MG CHEW 50 MG PO ×2 (01:21→20:33)
[2024-09-10 05:34] LABS: Basophils % (Auto) 1 % (0-2.5); Eosinophils # (Auto) 0.4 Thou/mm3 (0.0-0.5); Eosinophils % (Auto) 5 % (0-10); Hematocrit 23.1 % (36.0-46.0); Immature Granulocytes % (Auto) 1 % (0-0); Immature Granulocytes Auto 0.03 Thou/mm3 (0.00-0.00); Lymphocytes # (Auto) 1.9 Thou/mm3 (1.0-4.8); Lymphocytes % (Auto) 28 % (10-50); Mean Corpuscular HGB Conc 30.7 g/dl (31.0-37.0); Mean Corpuscular Hemoglobin 26.8 pg (25.0-35.0); Mean Corpuscular Volume 87 fL (80-100); Monocytes # (Auto) 0.7 Thou/mm3 (0.0-0.8); Monocytes % (Auto) 11 % (0-12); Neutrophils # (Auto) 3.6 Thou/mm3 (1.8-7.7); Neutrophils % (Auto) 55 % (37-80); Nucleated Red Blood Cell % 0 /100 WBC (0); Platelet Count 252 Thou/mm3 (140-440); RDW Standard Deviation 52.5 fL (36.4-46.3); Red Blood Count 2.65 Miln/mm3 (4.00-5.20); White Blood Count 6.6 Thou/mm3 (3.6-11.0)
[2024-09-10 05:38] LABS: Hemoglobin 7.1 g/dL (12.0-16.0)
[2024-09-10 05:52] LABS: Anion Gap 7 (7-16); BUN/Creatinine Ratio 12 Ratio (12-20); Blood Urea Nitrogen 15 mg/dL (9-23); Calcium 8.4 mg/dL (8.3-10.6); Carbon Dioxide 26.2 mMol/L (20.0-31.0); Chloride 110 mMol/L (98-107); Creatinine (Component) 1.3 mg/dL (0.6-1.3); Estimated Creatinine Clearance 40.3 mL/min (>60); Glucose 95 mg/dL (74-106); Magnesium 1.6 mg/dL (1.6-2.6); Osmolality,Calculated 285 (275-295); Phosphorous 2.9 mg/dL (2.4-5.1); Potassium 4.4 mMol/L (3.4-5.1); Sodium 143 mMol/L (136-145); eGFR 46 See Note
[2024-09-10] MEDS: LEVOTHYROXINE SODIUM 100 MCG TABLET 150 MCG PO (05:55)
[2024-09-10] MEDS: LORazepam 0.5 MG TABLET PO (06:13)
--- NOTE | 2024-09-10 08:02 | EKG_ITS ---
[facility] Test Date: 2024-09-10 Pat Name: CAPRICE PENA [facility] Gender[facility] Female Nib Inspector: BERNADINE : 1960 Requested By: John Chambers Order Number: [id number] Reading MD: John Chambers Measurements Intervals [place] Rate: 57 P: 27 ND: 189 QRS: 32 QRSD: 100 T: 30 QT: 422 QTc: 413 Interpretive Statements SINUS BRADYCARDIA LOW QRS VOLTAGE IN PRECORDIAL LEADS POSSIBLE ANTERIOR MYOCARDIAL INFARCTION , OF INDETERMINATE AGE Compared to ECG 08/27/2024 11:50:54 Low QRS voltage now present Myocardial infarct finding now present Sinus rhythm no longer present Right bundle-branch block no longer present /store/S0/[id number].pdf
[2024-09-10] MEDS: NICOTINE PATCH 14 MG/24 HR PATCH.TD24 TOP (08:56)
[2024-09-10] MEDS: PANTOPRAZOLE INJ 40 MG VIAL IVP (08:56)
--- NOTE | 2024-09-10 10:10 | ESPR_ITS ---
<Statement entered by Trupti Gant MD - 09/11/24 06:51> Patient was seen and examined at bedside. I agree on most of the assessment and plan of this patient. - Patient's plan and care discussed with my attending, Dr. Cristine Gant MD Internal Medicine PGY-2 Documentation for date of: 09/10/24 Subjective Subjective Interval history: Patient examined at bedside today. No acute overnight events. Says that she has been taking Xarelto for 2 years as she had a blood clot. She does not know if it was unprovoked or provoked. Has history of cancer in the past that was treated many years ago and has also got hysterectomy because it was in the uterus. She said she has been also having these dark stools for 2 months now. Has not got a colonoscopy in a while. No other complaints at this time. Exam Vital Signs Temp Pulse Resp BP Pulse Ox O2 Del Method O2 Flow Rate 97.1 F 52 L 17 113/44 L 98 Nasal Cannula 2 09/10/24 07:15 09/10/24 07:15 09/10/24 07:15 09/10/24 07:15 09/10/24 07:15 09/10/24 07:15 09/10/24 07:15 Narrative Exam General: AAOx3, NAD, pleasant female, appears to be disheveled and unkempt HEENT: Dry mucous membranes, conjunctiva pale bilaterally, EOMI, PERRLA, poor dentition Cardiovascular: S1, S2, radial pulses +2 bilat, RRR Pulmonary: CTAB bilat no cough, no wheezing GI: No tenderness to light or deep palpitation, no guarding, rigidity, rebound tenderness or distension Extremities: No presence of trace or pitting edema in lower extremities bilaterally, dorsalis pedis pulses +2 bilaterally, no apparent sign of including erythema, calf tenderness or swelling lower extremities bilaterally Neuro: AAOx3, no focal motor or sensory deficits in the UE or LE bilat Psych: Good judgement, thought and behavior. Cooperative Objective Labs 09/11/24 06:35 09/10/24 04:49 Labs: Laboratory Results - last 24 hr 09/09/24 09/09/24 09/10/24 17:04 19:06 04:49 WBC 8.5 6.6 RBC 2.89 L 2.65 L Hgb 7.8 L 7.1 L Hct 24.5 L 23.1 L MCV 85 87 MCH 27.0 26.8 MCHC 31.8 30.7 L RDW Std Deviation 51.7 H 52.5 H Plt Count 329 252 D Neut % (Auto) 61 55 Lymph % (Auto) 26 28 [place] % (Auto) 9 11 Eos % (Auto) 3 5 Baso % (Auto) 1 1 Neut # (Auto) 5.2 3.6 Lymph # (Auto) 2.2 1.9 [place] # (Auto) 0.8 0.7 Eos # (Auto) 0.3 0.4 Baso # (Auto) 0.1 0.0 Immature Gran # (Auto) 0.04 H 0.03 H Absolute Nucleated RBC 0.00 0.00 Immature Gran % 1 H 1 H Nucleated RBC % 0 0 PT 10.8 INR 1.0 APTT 27.5 Sodium 142 143 Potassium 4.6 4.4 Chloride 111 H 110 H Carbon Dioxide 23.2 26.2 Anion Gap 8 7 BUN 15 15 Creatinine 1.4 H 1.3 Estim Creat Clear Calc 37.6 L 40.3 L eGFR 43 L 46 L BUN/Creatinine Ratio 11 L 12 Glucose 95 95 Calculated Osmolality 283 285 Calcium 8.9 8.4 Corrected Calcium 9.1 Phosphorus 2.9 Magnesium 1.6 Total Bilirubin 0.2 L AST 16 ALT 7 L Alkaline Phosphatase 61 Total Protein 6.4 Albumin 3.8 Globulin 2.6 Albumin/Globulin Ratio 1.5 Lipase 36 Ur Collection Type Clean Catch Urine Color Lt-Yellow Urine Clarity Clear Urine pH 6.5 Ur Specific [place] 1.013 Urine Protein Negative Urine Glucose (UA) Negative Urine Ketones Negative Urine Blood Negative Urine Nitrite Negative Urine Bilirubin Negative Urine Urobilinogen (Auto) Negative Ur Leukocyte Esterase Negative Urine RBC 6 H Urine WBC 12 H Ur Squamous Epith Cells 5 Urine Bacteria 3+ A Blood Type O Negative Antibody Screen NEGATIVE Blood Bank Wristband ID Yes Quality Measures Quality Measures none Assessment & Plan Assessment Current Active Medications: Generic Name Dose Route Start Last Admin Trade Name Freq PRN Reason Stop Dose Admin Acetaminophen 650 mg 09/09/24 22:10 Acetaminophen 325 Mg Tablet PO 10/09/24 22:09 Q6H PRN Fever >100.4 or Pain 1-10 Hydrocodone Bitart/Acetaminophen 1 tab 09/09/24 22:10 09/10/24 01:21 Hydrocodone/Apap 5/325 Tablet PO 09/14/24 22:09 1 tab Q6HR PRN Administration PAIN SCALE 4-10(Mod-Sev Lactated Ringer's 1,000 mls @ 75 mls/hr 09/09/24 21:10 09/09/24 23:43 Lactated Ringers IV 10/09/24 21:09 75 mls/hr .[id number] RYAN Administration Lamotrigine 50 mg 09/09/24 22:46 09/10/24 01:21 Lamotrigine 25 Mg Chew PO 10/09/24 20:59 50 mg HS RYAN Administration Levothyroxine Sodium 125 mcg/ 150 mcg 09/11/24 06:00 Levothyroxine Sodium 25 mcg PO 10/10/24 05:59 ACBR RYAN Nicotine 14 mg 09/10/24 03:45 09/10/24 08:56 Nicotine Patch 14 Mg/24 Hr Patch.Td24 TOP 10/10/24 03:44 14 mg QDAY RYAN Administration Ondansetron HCl 4 mg 09/09/24 22:10 Ondansetron Inj 2 Mg/Ml Inj 2 Ml IV 10/09/24 22:09 Q6H PRN NAUSEA OR VOMITING Protocol Pantoprazole Sodium 40 mg 09/10/24 09:00 09/10/24 08:56 Pantoprazole Inj 40 Mg Vial IVP 10/10/24 08:59 40 mg BID RYAN Administration Pregabalin 75 mg 09/10/24 00:59 Pregabalin 75 Mg Capsule PO 10/10/24 00:58 TID PRN nerve pain muscle spasms Tizanidine HCl 2 mg 09/10/24 00:59 Tizanidine Hcl 2 Mg Tablet PO 10/10/24 00:58 Q12HR PRN Muscle Spasm Venlafaxine HCl 75 mg 09/10/24 06:00 09/10/24 06:13 Venlafaxine 37.5 Mg Tablet PO 10/10/24 05:59 Not Given TID RYAN Ziprasidone 60 mg 09/09/24 21:00 09/09/24 22:36 Ziprasidone 20 Mg Capsule PO 10/09/24 20:59 Not Given HS RYAN Plan Assessment 64-year-old female with past medical history of CVA, hypertension, hypothyroidism s/p thyroidectomy, left upper extremity DVT, polysubstance use disorder, fibromyalgia, bipolar disorder, severe scoliosis, chronic back pain on opioids, osteoporosis, PTSD, anxiety, panic attacks, and disassociation disorder who presented to the ED on 09/09/2024 with worsening epigastric abdominal pain today and 2 months of black tarry stools #Acute blood loss anemia #Suspected upper GI bleed Patient presents with a subacute presentation of melena, with notable Hgb drop in the last few months based on CBC labs. Patient takes Xarelto for apparently history of DVT. She does endorse use of an NSAID meloxicam but reports has been taking this medication only a few days. Patient hemoglobins stable, does not require transfusion at the moment, PT, INR, PTT within normal range. Possible differentials include peptic ulcer disease, gastritis, H. pylori, malignancy, esophageal varices, AVM Patient's hemoglobin on check today was 7.0, will transfuse 1 PRBC Plan: -GI consulted, plans for EGD -Clear liquid, n.p.o. at midnight, EGD tomorrow -Transfusing for Hgb <7 or symptomatic. -Avoid NSAIDs/ASA/chemical prophylaxis -Pantoprazole BID 40 mg IV -Hold home Xarelto ?Trend CBC ?Follow-up posttransfusion H&H #Acute on chronic epigastric abdominal pain Abdomen/pelvis CT without contrast showed multiple bilateral renal cysts, 4 mm soft calcification lower anterior right kidney, no hydronephrosis or ureteral calculi, multiple mildly fluid distended small bowel loops, consider ileus, enteritis such as Crohn's disease. Patient reports years of chronic abdominal pain symptoms, has had difficulty obtaining GI workup outpatient secondary to insurance. Differentials could include the above versus IBS versus IBD. Plan: -Planned for EGD tomorrow #GALE on CKD 3A On admission creatinine 1.4, GFR 43. Previous average creatinine appears to be around 1.2, GFR 45-60. Plan: -Continue IV fluids LR at 75 ml/hr #History of hypothyroidism TSH 0.15 Patient is not taking the Synthroid 150, says she is taking Synthroid 125 as this could be contributing to elevated TSH Plan: ?Adjusted to levothyroxine 125 mcg qday ?Follow-up free T4 #History of hypertension On admission BP is normotensive. Plan: -Hold home lisinopril due to possible GALE #History of chronic back pain secondary to degenerative disc disease Plan: -[place] 10 mg q8h prn moderate to severe pain #History of fibromyalgia Plan: -Continue home pregabalin 75 mg TID #History of bipolar disorder Plan: -Continue home ziprasidone 60 mg HS #History of left upper extremity DVT Patient reports that she has been taking Xarelto for 2 years now because she had a deep vein thrombosis Need to determine if it was provoked or unprovoked determine if patient can be off Xarelto Plan: -Holding Xarelto at this time #Health Maintenance Disposition: Med telemetry DVT prophylaxis: SCDs GI prophylaxis: Protonix 40 mg IV twice daily Diet: Clear liquids n.p.o. midnight CODE STATUS: Full Patient seen and care discussed with my senior resident, Dr. Gant, and my attending physician, Dr. Cristine Chambers, PGY-1 Attending Provider Attestation/Addendum I have examined the patient, reviewed labs and imaging findings, discussed the case with the resident(s), and reviewed entered orders. I agree with the plan of care as outlined in this note, with these additional summaries/recommendations: Patient seen at bedside. Patient reports she had dark bloody bowel movements yesterday although has not had a BM today. Patient admitted for acute blood loss anemia secondary to upper GI bleed. Continue PPI, n.p.o., and IV fluids. Gastroenterology consulted with plans for EGD today. Hemoglobin down trended from 7.8 yesterday to 7.1 today. Repeat H&H this afternoon and transfuse for hemoglobin less than 7. We will resume diet when able. Patient has history of DVT in left upper extremity years ago and has been on Xarelto which is currently being held. Patient's GALE on CKD has improved. Creatinine 1.5 on admission and has improved to 1.3 with IV fluids. Most likely secondary to prerenal azotemia. Continue to avoid nephrotoxic agents and renally dose medications. Hold home lisinopril for now. Continue home ziprasidone. Please see residents note for additional details of management. Dr. Cristine MD
[2024-09-10 10:32] LABS: Thyroid Stimulating Hormone 0.15 uIU/mL (0.55-4.78)
--- NOTE | 2024-09-10 10:43 | PC.SS ---
This is 64-year-old, , life partnered female who presented to the ED due to suffering from abdominal pain. Patient appeared alert and oriented to self, place and situation. Patient was pleasant. Patient resides at home with her significant other. Patient is semi-independent with all her ADLs. Patient has an electric scooter, walker, wheelchair, and hospital bed. Patient has a caregiver, Telle, whom has been assigned by patient as her medical decision maker. Patient's PCP is Carlee Ovalle. When medically clear, patient will return home, no transportation is needed.
[2024-09-10] MEDS: cefTRIAXone/D5w 1gm IV premix 1 GM/50 ML BAG IV (11:18)
[2024-09-10] MEDS: RINGERS LACTATED 1000 ML 1,000 ML 75 ML IV (11:19)
[2024-09-10] MEDS: HYDROcodone/APAP 10/325 TAB PO ×2 (14:09→22:35)
[2024-09-10 14:42] LABS: Hematocrit 22.4 % (36.0-46.0)
[2024-09-10 15:03] LABS: Free T4 (Free Thyroxine) 1.35 ng/dL (0.89-1.76)
--- NOTE | 2024-09-10 16:49 | PD.IMCONS ---
HPI Data of Consult Requesting Physician: Grant Perez MD Primary Care Provider: Carlee Ovalle PA-C Consult Narrative Reason for consult: Melena pain abdomen H/H 7.0/22.4 History of present illness: 64 years old female evaluated request of the ER physician for clinical presentation abdominal pain and melanotic stools Hemoglobin on 09/07/2024 was 8.3 and 26.0 and on admission this time he was 7.0 and 22.4 with a platelet count of 212,000 pro time INR 1.0 BUN/creatinine [address] scan of the abdomen pelvis showed fluid in the small bowel some inflammation and no other abnormalities Patient does have a history of DVT left upper extremity on Xarelto hypertension and bipolar disorder cc:: cc: Grant Perez MD Review of Systems Review of Systems Systems Reviewed: All systems reviewed, normal except as documented Past Medical History Surgical History OTHER SURGICAL HX: As in the history of present illness Meds Home Medications and Allergies Home Medications ?Medication ?Instructions ?Recorded ?Confirmed ?Type ziprasidone HCl 80 mg capsule 60 mg PO QDAY 04/05/19 09/10/24 History (Geodon) cetirizine 10 mg tablet 10 mg PO DAILY PRN Allergy Symptoms 03/27/23 09/10/24 History docusate sodium 250 mg capsule 250 mg PO HSPRN PRN Constipation 03/27/23 09/10/24 History (Stool Softener) lamotrigine 25 mg tablet 100 mg PO HS 03/27/23 09/10/24 History pregabalin 75 mg capsule 75 mg PO TID PRN Pain 03/27/23 09/10/24 History tizanidine 2 mg tablet 2 mg PO Q12HR PRN Muscle Spasm 03/27/23 09/10/24 History clopidogrel 75 mg tablet 75 mg PO DAILY 04/16/23 09/10/24 History hydrocodone 10 mg-acetaminophen 1 tab PO TID PRN pain 04/17/23 09/10/24 History 325 mg tablet donepezil 5 mg tablet (Aricept) 5 mg PO HS 02/04/24 09/10/24 History famotidine 20 mg tablet 20 mg PO QDAY 02/04/24 09/10/24 History levothyroxine 150 mcg tablet 125 mcg PO ACBR 02/04/24 09/10/24 History rivaroxaban 20 mg tablet (Xarelto) 20 mg PO QDAY 02/04/24 09/10/24 History acetaminophen 650 mg 650 mg PO Q8H PRN pain 09/10/24 09/10/24 History tablet,extended release lorazepam 1 mg tablet 0.5 mg PO Q12H 09/10/24 09/10/24 History Allergies Allergy/AdvReac Type Severity Reaction Status Date / Time diphenhydramine Allergy Severe ITCHING Verified 09/09/24 16:37 ketorolac Allergy Severe ITCHING Verified 09/09/24 16:37 Penicillins Allergy Severe ITCH Verified 09/09/24 16:37 sumatriptan succinate Allergy Severe ITCHING, Verified 09/09/24 16:37 VOMITING propranolol Allergy Unknown Verified 09/09/24 16:37 codeine AdvReac Severe Vomiting Verified 09/09/24 16:37 Exam Vital Signs Temp Pulse Resp BP Pulse Ox O2 Del Method O2 Flow Rate 97.1 F 52 L 18 133/82 H 95 Room Air 2 09/10/24 16:00 09/10/24 16:00 09/10/24 16:00 09/10/24 16:00 09/10/24 12:00 09/10/24 16:00 09/10/24 07:15 Routine Abdominal Exam Comments: Normal to auscultation Results Labs 09/10/24 14:10 09/10/24 04:49 Labs: Short CBC 09/09/24 09/10/24 09/10/24 Range/Units 17:04 04:49 14:10 WBC 8.5 6.6 (3.6-11.0) Thou/mm3 Hgb 7.8 L 7.1 L 7.0 L (12.0-16.0) g/dL Hct 24.5 L 23.1 L 22.4 L (36.0-46.0) % Plt Count 329 252 D (140-440) Thou/mm3 BMP 09/09/24 09/10/24 17:04 04:49 Sodium 142 143 Potassium 4.6 4.4 Chloride 111 H 110 H Carbon Dioxide 23.2 26.2 BUN 15 15 Creatinine 1.4 H 1.3 Glucose 95 95 Calcium 8.9 8.4 Liver Function 09/09/24 Range/Units 17:04 Total Bilirubin 0.2 L (0.3-1.2) mg/dL AST 16 (0-34) U/L ALT 7 L (10-49) U/L Alkaline Phosphatase 61 (46-116) U/L Albumin 3.8 (3.4-4.8) gm/dL Urine 09/09/24 Range/Units 19:06 Urine Color Lt-Yellow (Lt Yel-Yel) Urine Clarity Clear (Clear/Hazy) Urine pH 6.5 (5.0-7.0) Ur Specific [place] 1.013 (1.001-1.035) Urine Protein Negative (Neg - Trace) Urine Glucose (UA) Negative (Negative) Assessment and Plan Additional Assessment & Plan Additional Plan: # Melena # Acute posthemorrhagic anemia # Pain abdomen Plan N.p.o. midnight tonight except p.o. meds IV Protonix to continue fiberoptic esophagogastroduodenoscopy with possible biopsy possible therapeutic intervention under intravenous moderate sedation scheduled for tomorrow morning serial CBC Other medical problems include Essential hypertension Bipolar disorder Left upper extremity deep vein thrombosis patient has been taking Xarelto Thank you very much for the opportunity to participate in care of this patient
[2024-09-10] MEDS: MG HYD/AL HYD/SIME (Maalox Reg) SUSP 30 ML UDC PO (17:56)
[2024-09-10] MEDS: ZIPRASIDONE 20 MG CAPSULE 60 MG PO (20:31)
[2024-09-10 22:50] LABS: Hematocrit 26.4 % (36.0-46.0)
[2024-09-10 22:57] LABS: Hemoglobin 8.7 g/dL (12.0-16.0)
[2024-09-11] VITALS (18 sets, daily range): BP systolic 106–171; BP diastolic 47–101; PULSE 48–115; RESP 16–96; TEMP 36.2–36.8; O2SAT 94–100
[2024-09-11] MEDS: LEVOTHYROXINE SODIUM 125 MCG TABLET PO (05:04)
[2024-09-11] MEDS: HYDROcodone/APAP 10/325 TAB PO ×2 (06:44→15:09)
[2024-09-11 07:04] LABS: Basophils # (Auto) 0.1 Thou/mm3 (0.0-0.2); Basophils % (Auto) 1 % (0-2.5); Eosinophils # (Auto) 0.2 Thou/mm3 (0.0-0.5); Eosinophils % (Auto) 2 % (0-10); Hematocrit 28.1 % (36.0-46.0); Hemoglobin 9.4 g/dL (12.0-16.0); Immature Granulocytes % (Auto) 0 % (0-0); Immature Granulocytes Auto 0.04 Thou/mm3 (0.00-0.00); Lymphocytes # (Auto) 1.2 Thou/mm3 (1.0-4.8); Lymphocytes % (Auto) 13 % (10-50); Mean Corpuscular HGB Conc 33.5 g/dl (31.0-37.0); Mean Corpuscular Hemoglobin 27.6 pg (25.0-35.0); Mean Corpuscular Volume 83 fL (80-100); Monocytes # (Auto) 0.7 Thou/mm3 (0.0-0.8); Monocytes % (Auto) 7 % (0-12); Neutrophils % (Auto) 77 % (37-80); Nucleated Red Blood Cell % 0 /100 WBC (0); Platelet Count 286 Thou/mm3 (140-440); RDW Standard Deviation 47.8 fL (36.4-46.3); White Blood Count 9.2 Thou/mm3 (3.6-11.0)
[2024-09-11 07:38] LABS: Anion Gap 9 (7-16); BUN/Creatinine Ratio 10 Ratio (12-20); Blood Urea Nitrogen 10 mg/dL (9-23); Calcium 8.1 mg/dL (8.3-10.6); Carbon Dioxide 23.3 mMol/L (20.0-31.0); Chloride 111 mMol/L (98-107); Estimated Creatinine Clearance 51.1 mL/min (>60); Glucose 97 mg/dL (74-106); Osmolality,Calculated 283 (275-295); Potassium 3.9 mMol/L (3.4-5.1); Sodium 143 mMol/L (136-145); eGFR > 60 See Note
[2024-09-11] MEDS: cefTRIAXone/D5w 1gm IV premix 1 GM/50 ML BAG IV (08:06)
[2024-09-11] MEDS: NICOTINE PATCH 14 MG/24 HR PATCH.TD24 TOP (08:06)
[2024-09-11] MEDS: RINGERS LACTATED 1000 ML 1,000 ML 75 ML IV ×2 (08:06→23:06)
[2024-09-11] MEDS: PREGABALIN 75 MG CAPSULE PO ×2 (08:07→17:43)
[2024-09-11] MEDS: PANTOPRAZOLE INJ 40 MG VIAL IVP ×2 (08:07→20:14)
[2024-09-11] MEDS: LORazepam 0.5 MG TABLET PO ×2 (08:07→20:12)
--- NOTE | 2024-09-11 11:06 | PD.RESPRO ---
Documentation for date of: 09/11/24 Subjective Subjective Interval history: Patient examined at bedside today. No acute overnight events. Patient reports she is doing well and is ready for the EGD. She is wondering when she is going to get the EGD. She has not coughed up or had any dark bowel movements. She does feel a bit anxious at this time. No other complaints at this time. Exam Vital Signs Temp Pulse Resp BP Pulse Ox O2 Del Method O2 Flow Rate 97.4 F 66 19 127/74 95 Room Air 2 09/11/24 07:51 09/11/24 08:00 09/11/24 07:51 09/11/24 07:51 09/11/24 07:51 09/11/24 07:51 09/10/24 07:15 Narrative Exam General: AAOx3, NAD, pleasant female, appears to be disheveled and unkempt HEENT: Dry mucous membranes, conjunctiva pale bilaterally, EOMI, PERRLA, poor dentition Cardiovascular: S1, S2, radial pulses +2 bilat, RRR Pulmonary: CTAB bilat no cough, no wheezing GI: No tenderness to light or deep palpitation, no guarding, rigidity, rebound tenderness or distension Extremities: No presence of trace or pitting edema in lower extremities bilaterally, dorsalis pedis pulses +2 bilaterally, no apparent sign of including erythema, calf tenderness or swelling lower extremities bilaterally Neuro: AAOx3, no focal motor or sensory deficits in the UE or LE bilat Psych: Good judgement, thought and behavior. Cooperative Objective Labs 09/12/24 05:34 09/12/24 05:34 Labs: Laboratory Results - last 24 hr 09/09/24 09/10/24 09/10/24 17:04 14:10 22:37 WBC RBC Hgb 7.0 L 8.7 L D Hct 22.4 L 26.4 L MCV MCH MCHC RDW Std Deviation Plt Count Neut % (Auto) Lymph % (Auto) [place] % (Auto) Eos % (Auto) Baso % (Auto) Neut # (Auto) Lymph # (Auto) [place] # (Auto) Eos # (Auto) Baso # (Auto) Immature Gran # (Auto) Absolute Nucleated RBC Immature Gran % Nucleated RBC % Sodium Potassium Chloride Carbon Dioxide Anion Gap BUN Creatinine Estim Creat Clear Calc eGFR BUN/Creatinine Ratio Glucose Calculated Osmolality Calcium Free T4 1.35 Blood Type O Negative Antibody Screen NEGATIVE Crossmatch See Detail Blood Bank Wristband ID Yes 09/11/24 06:35 WBC 9.2 RBC 3.40 L Hgb 9.4 L Hct 28.1 L MCV 83 MCH 27.6 MCHC 33.5 RDW Std Deviation 47.8 H Plt Count 286 D Neut % (Auto) 77 Lymph % (Auto) 13 [place] % (Auto) 7 Eos % (Auto) 2 Baso % (Auto) 1 Neut # (Auto) 7.0 Lymph # (Auto) 1.2 [place] # (Auto) 0.7 Eos # (Auto) 0.2 Baso # (Auto) 0.1 Immature Gran # (Auto) 0.04 H Absolute Nucleated RBC 0.00 Immature Gran % 0 Nucleated RBC % 0 Sodium 143 Potassium 3.9 D Chloride 111 H Carbon Dioxide 23.3 Anion Gap 9 BUN 10 Creatinine 1.0 Estim Creat Clear Calc 51.1 L eGFR > 60 BUN/Creatinine Ratio 10 L Glucose 97 Calculated Osmolality 283 Calcium 8.1 L Free T4 Blood Type Antibody Screen Crossmatch Blood Bank Wristband ID Quality Measures Quality Measures none Assessment & Plan Assessment Current Active Medications: Generic Name Dose Route Start Last Admin Trade Name Freq PRN Reason Stop Dose Admin Acetaminophen 650 mg 09/09/24 22:10 Acetaminophen 325 Mg Tablet PO 10/09/24 22:09 Q6H PRN Fever >100.4 or Pain 1-10 Hydrocodone Bitart/Acetaminophen 1 tab 09/10/24 13:45 09/11/24 06:44 Hydrocodone/Apap 10/325 Tab PO 09/15/24 13:44 1 tab Q8HR PRN Administration Pain 6-10 Lactated Ringer's 1,000 mls @ 75 mls/hr 09/09/24 21:10 09/11/24 08:06 Lactated Ringers IV 10/09/24 21:09 75 mls/hr .[id number] RYAN Administration Ceftriaxone Sodium/Dextrose 1 gm in 50 mls @ 100 mls/hr 09/10/24 10:09 09/11/24 08:06 Rocephin/D5w 1gm Iv Premix IV 09/17/24 10:08 100 mls/hr QDAY RYAN Administration Lamotrigine 50 mg 09/09/24 22:46 09/10/24 20:33 Lamotrigine 25 Mg Chew PO 10/09/24 20:59 50 mg HS RYAN Administration Levothyroxine Sodium 125 mcg 09/11/24 06:00 09/11/24 05:04 Levothyroxine Sodium 125 Mcg Tablet PO 10/11/24 05:59 125 mcg ACBR RYAN Administration Lorazepam 0.5 mg 09/11/24 07:45 09/11/24 08:07 Lorazepam 0.5 Mg Tablet PO 09/16/24 07:44 0.5 mg Q12H RYAN Administration Nicotine 14 mg 09/10/24 03:45 09/11/24 08:06 Nicotine Patch 14 Mg/24 Hr Patch.Td24 TOP 10/10/24 03:44 14 mg QDAY RYAN Administration Ondansetron HCl 4 mg 09/09/24 22:10 Ondansetron Inj 2 Mg/Ml Inj 2 Ml IV 10/09/24 22:09 Q6H PRN NAUSEA OR VOMITING Protocol Pantoprazole Sodium 40 mg 09/10/24 09:00 09/11/24 08:07 Pantoprazole Inj 40 Mg Vial IVP 10/10/24 08:59 40 mg BID RYAN Administration Pregabalin 75 mg 09/10/24 00:59 09/11/24 08:07 Pregabalin 75 Mg Capsule PO 10/10/24 00:58 75 mg TID PRN Administration nerve pain muscle spasms Tizanidine HCl 2 mg 09/10/24 00:59 Tizanidine Hcl 2 Mg Tablet PO 10/10/24 00:58 Q12HR PRN Muscle Spasm Venlafaxine HCl 75 mg 09/10/24 06:00 09/11/24 05:03 Venlafaxine 37.5 Mg Tablet PO 10/10/24 05:59 Not Given TID RYAN Ziprasidone 60 mg 09/09/24 21:00 09/10/24 20:31 Ziprasidone 20 Mg Capsule PO 10/09/24 20:59 60 mg HS RYAN Administration Plan Assessment 64-year-old female with past medical history of CVA, hypertension, hypothyroidism s/p thyroidectomy, left upper extremity DVT, polysubstance use disorder, fibromyalgia, bipolar disorder, severe scoliosis, chronic back pain on opioids, osteoporosis, PTSD, anxiety, panic attacks, and disassociation disorder who presented to the ED on 09/09/2024 with worsening epigastric abdominal pain today and 2 months of black tarry stools #Acute blood loss anemia #Suspected upper GI bleed Patient presents with a subacute presentation of melena, with notable Hgb drop in the last few months based on CBC labs. Patient takes Xarelto for apparently history of DVT. She does endorse use of an NSAID meloxicam but reports has been taking this medication only a few days. Patient hemoglobins stable, does not require transfusion at the moment, PT, INR, PTT within normal range. Possible differentials include peptic ulcer disease, gastritis, H. pylori, malignancy, esophageal varices, AVM Hemoglobin 9.2 today EGD today, will follow-up results Plan: -GI consulted, plans for EGD -EGD today -Transfusing for Hgb <7 or symptomatic. -Avoid NSAIDs/ASA/chemical prophylaxis -Pantoprazole BID 40 mg IV -Continue to hold hold home Xarelto ?Trend CBC #Acute on chronic epigastric abdominal pain Abdomen/pelvis CT without contrast showed multiple bilateral renal cysts, 4 mm soft calcification lower anterior right kidney, no hydronephrosis or ureteral calculi, multiple mildly fluid distended small bowel loops, consider ileus, enteritis such as Crohn's disease. Patient reports years of chronic abdominal pain symptoms, has had difficulty obtaining GI workup outpatient secondary to insurance. Differentials could include the above versus IBS versus IBD. Plan: -EGD today #GALE on CKD 3A On admission creatinine 1.4, GFR 43. Previous average creatinine appears to be around 1.2, GFR 45-60. Creatinine 1.0 today Plan: - Avoid nephrotoxic agents ? Renally dose medicines ? Trend with CMP #History of hypothyroidism #Subclinical hyperthyroidism TSH 0.15 Patient is not taking the Synthroid 150, says she is taking Synthroid 125 as this could be contributing to elevated TSH Free T4 unremarkable Patient has history of hypothyroidism, however TSH was low, will need to recheck outpatient Plan: ?Adjusted to levothyroxine 125 mcg qday ?TSH repeat in 4 to 6 weeks outpatient #History of hypertension On admission BP is normotensive. Plan: - Continue to hold home blood pressure medicines #History of chronic back pain secondary to degenerative disc disease Plan: -[place] 10 mg q8h prn moderate to severe pain #History of fibromyalgia Plan: -Continue home pregabalin 75 mg TID #History of bipolar disorder Plan: -Continue home ziprasidone 60 mg HS ?Resumed home Xanax 0.5 mg twice daily #History of left upper extremity DVT Patient reports that she has been taking Xarelto for 2 years now because she had a deep vein thrombosis Need to determine if it was provoked or unprovoked determine if patient can be off Xarelto Plan: -Holding Xarelto at this time #Health Maintenance Disposition: Med telemetry DVT prophylaxis: SCDs GI prophylaxis: Protonix 40 mg IV twice daily Diet: N.p.o. CODE STATUS: Full Patient seen and care discussed with my attending physician, Dr. Cristine Chambers, PGY-1 Attending Provider Attestation/Addendum I have examined the patient, reviewed labs and imaging findings, discussed the case with the resident(s), and reviewed entered orders. I agree with the plan of care as outlined in this note, with these additional summaries/recommendations: Patient seen at bedside. No acute overnight events. Patient continues to endorse dark bloody bowel movements although has not had a BM today. Patient admitted for acute blood loss anemia secondary to upper GI bleed. Continue PPI, n.p.o., and IV fluids. Gastroenterology consulted with plans for EGD today. Hemoglobin slightly improved and now 9.4. Transfuse for hemoglobin less than 7. We will resume diet when able. Patient has history of DVT in left upper extremity years ago and has been on Xarelto which is currently being held. She reports she was previously on Plavix for history of CVA but currently on just xarelto. Patients GALE has resolved. Most likely secondary to prerenal azotemia. Continue to avoid nephrotoxic agents and renally dose medications. Hold home lisinopril for now. Continue home ziprasidone. Please see residents note for additional details of management. Dr. Cristine MD
--- NOTE | 2024-09-11 13:04 | SUR.PHASEI ---
1304: Pt. AAOx4, vitals stable, breathing unlabored, no complaint of pain or nausea, no dressing in place, no active bleed noted, report received from Yolanda GONZALEZ.
--- NOTE | 2024-09-11 13:40 | SUR.PHASEI ---
1340: Pt. AAOx4, vitals stable, breathing unlabored, no complaint of pain or nausea, no dressing in place, no active bleed noted, pt. tolerated sips of soda well, gave report to Izzy GONZALEZ prior to transfer to room. Family made aware of transfer to room, no complications.
[2024-09-11] MEDS: NA SU/NAHCO3/KC/PEG (Golytely) 4,000 ML BTL 4000 ML PO (14:12)
[2024-09-11 16:34] LABS: OBS Performed By herns4; OBS QC OK? Yes; Occult Blood, Stool Positive (Negative)
[2024-09-11] MEDS: ZIPRASIDONE 20 MG CAPSULE 60 MG PO (20:12)
[2024-09-11] MEDS: lamoTRIgine 25 MG CHEW 50 MG PO (21:57)
[2024-09-12] VITALS (22 sets, daily range): BP systolic 111–159; BP diastolic 53–77; PULSE 44–89; RESP 12–97; TEMP 36.2–37.2; O2SAT 95–100
[2024-09-12] MEDS: LEVOTHYROXINE SODIUM 125 MCG TABLET PO (05:05)
[2024-09-12 05:55] LABS: Basophils % (Auto) 0 % (0-2.5); Eosinophils # (Auto) 0.3 Thou/mm3 (0.0-0.5); Eosinophils % (Auto) 4 % (0-10); Hematocrit 28.4 % (36.0-46.0); Hemoglobin 9.2 g/dL (12.0-16.0); Immature Granulocytes % (Auto) 0 % (0-0); Immature Granulocytes Auto 0.02 Thou/mm3 (0.00-0.00); Lymphocytes # (Auto) 1.3 Thou/mm3 (1.0-4.8); Lymphocytes % (Auto) 18 % (10-50); Mean Corpuscular HGB Conc 32.4 g/dl (31.0-37.0); Mean Corpuscular Hemoglobin 27.8 pg (25.0-35.0); Mean Corpuscular Volume 86 fL (80-100); Monocytes # (Auto) 0.7 Thou/mm3 (0.0-0.8); Monocytes % (Auto) 10 % (0-12); Neutrophils % (Auto) 68 % (37-80); Nucleated Red Blood Cell % 0 /100 WBC (0); Platelet Count 267 Thou/mm3 (140-440); RDW Standard Deviation 49.7 fL (36.4-46.3); Red Blood Count 3.31 Miln/mm3 (4.00-5.20); White Blood Count 7.3 Thou/mm3 (3.6-11.0)
[2024-09-12 06:31] LABS: Anion Gap 7 (7-16); BUN/Creatinine Ratio 7 Ratio (12-20); Blood Urea Nitrogen 6 mg/dL (9-23); Carbon Dioxide 24.8 mMol/L (20.0-31.0); Chloride 111 mMol/L (98-107); Creatinine (Component) 0.9 mg/dL (0.6-1.3); Estimated Creatinine Clearance 56.8 mL/min (>60); Glucose 97 mg/dL (74-106); Magnesium 1.6 mg/dL (1.6-2.6); Osmolality,Calculated 282 (275-295); Potassium 3.6 mMol/L (3.4-5.1); Sodium 143 mMol/L (136-145); eGFR > 60 See Note
[2024-09-12] MEDS: LORazepam 0.5 MG TABLET PO ×2 (07:21→22:10)
[2024-09-12] MEDS: PREGABALIN 75 MG CAPSULE PO ×2 (07:21→22:10)
[2024-09-12] MEDS: HYDROcodone/APAP 10/325 TAB PO ×2 (07:21→15:58)
[2024-09-12] MEDS: cefTRIAXone/D5w 1gm IV premix 1 GM/50 ML BAG IV (09:14)
[2024-09-12] MEDS: PANTOPRAZOLE INJ 40 MG VIAL IVP ×2 (09:19→20:56)
[2024-09-12] MEDS: NICOTINE PATCH 14 MG/24 HR PATCH.TD24 TOP (09:19)
--- NOTE | 2024-09-12 09:28 | PC.SS ---
Follow up note: Colonoscopy today. Pt will return home upon d.c.
[2024-09-12] MEDS: ACETAMINOPHEN 325 MG TABLET 650 MG PO (12:22)
[2024-09-12] MEDS: RINGERS LACTATED 1000 ML 1,000 ML 75 ML IV (12:48)
--- NOTE | 2024-09-12 18:45 | ESPR_ITS ---
Documentation for date of: 09/12/24 Subjective Subjective Interval history: Examined at bedside today. No acute overnight events. Patient reports that she had seen some dark blood in her stool. She reports no chest pain, shortness of breath or weakness. She is asking when she is getting her colonoscopy today. No other complaints at this time. Exam Vital Signs Temp Pulse Resp BP Pulse Ox O2 Del Method O2 Flow Rate 97.4 F 53 L 18 111/61 97 Room Air 3 09/12/24 15:43 09/12/24 16:00 09/12/24 15:43 09/12/24 15:43 09/12/24 15:43 09/12/24 11:21 09/11/24 12:55 Narrative Exam General: AAOx3, NAD, pleasant female, appears to be disheveled and unkempt HEENT: Dry mucous membranes, conjunctiva pale bilaterally, EOMI, PERRLA, poor dentition Cardiovascular: S1, S2, radial pulses +2 bilat, RRR Pulmonary: CTAB bilat no cough, no wheezing GI: No tenderness to light or deep palpitation, no guarding, rigidity, rebound tenderness or distension Extremities: No presence of trace or pitting edema in lower extremities bilaterally, dorsalis pedis pulses +2 bilaterally, no apparent sign of including erythema, calf tenderness or swelling lower extremities bilaterally Neuro: AAOx3, no focal motor or sensory deficits in the UE or LE bilat Psych: Good judgement, thought and behavior. Cooperative Objective Labs 09/14/24 04:45 09/14/24 04:45 Labs: Laboratory Results - last 24 hr 09/12/24 05:34 WBC 7.3 RBC 3.31 L Hgb 9.2 L Hct 28.4 L MCV 86 MCH 27.8 MCHC 32.4 RDW Std Deviation 49.7 H Plt Count 267 Neut % (Auto) 68 Lymph % (Auto) 18 [place] % (Auto) 10 Eos % (Auto) 4 Baso % (Auto) 0 Neut # (Auto) 5.0 Lymph # (Auto) 1.3 [place] # (Auto) 0.7 Eos # (Auto) 0.3 Baso # (Auto) 0.0 Immature Gran # (Auto) 0.02 H Absolute Nucleated RBC 0.00 Immature Gran % 0 Nucleated RBC % 0 Sodium 143 Potassium 3.6 Chloride 111 H Carbon Dioxide 24.8 Anion Gap 7 BUN 6 L Creatinine 0.9 Estim Creat Clear Calc 56.8 L eGFR > 60 BUN/Creatinine Ratio 7 L Glucose 97 Calculated Osmolality 282 Calcium 8.0 L Magnesium 1.6 Quality Measures Quality Measures none Assessment & Plan Assessment Current Active Medications: Generic Name Dose Route Start Last Admin Trade Name Freq PRN Reason Stop Dose Admin Acetaminophen 650 mg 09/11/24 11:48 09/12/24 12:22 Acetaminophen 325 Mg Tablet PO 10/09/24 22:09 650 mg Q6H PRN Administration Fever >100.4 or Pain 1-5 Hydrocodone Bitart/Acetaminophen 1 tab 09/10/24 13:45 09/12/24 15:58 Hydrocodone/Apap 10/325 Tab PO 09/15/24 13:44 1 tab Q8HR PRN Administration Pain 6-10 Lactated Ringer's 1,000 mls @ 75 mls/hr 09/09/24 21:10 09/12/24 12:48 Lactated Ringers IV 10/09/24 21:09 75 mls/hr .[id number] RYAN Administration Ceftriaxone Sodium/Dextrose 1 gm in 50 mls @ 100 mls/hr 09/10/24 10:09 09/12/24 09:14 Rocephin/D5w 1gm Iv Premix IV 09/17/24 10:08 100 mls/hr QDAY RYAN Administration Lamotrigine 50 mg 09/09/24 22:46 09/11/24 21:57 Lamotrigine 25 Mg Chew PO 10/09/24 20:59 50 mg HS RYAN Administration Levothyroxine Sodium 125 mcg 09/11/24 06:00 09/12/24 05:05 Levothyroxine Sodium 125 Mcg Tablet PO 10/11/24 05:59 125 mcg ACBR RYAN Administration Lorazepam 0.5 mg 09/11/24 07:45 09/12/24 07:21 Lorazepam 0.5 Mg Tablet PO 09/16/24 07:44 0.5 mg Q12H RYAN Administration Nicotine 14 mg 09/10/24 03:45 09/12/24 09:19 Nicotine Patch 14 Mg/24 Hr Patch.Td24 TOP 10/10/24 03:44 14 mg QDAY RYAN Administration Ondansetron HCl 4 mg 09/09/24 22:10 Ondansetron Inj 2 Mg/Ml Inj 2 Ml IV 10/09/24 22:09 Q6H PRN NAUSEA OR VOMITING Protocol Pantoprazole Sodium 40 mg 09/10/24 09:00 09/12/24 09:19 Pantoprazole Inj 40 Mg Vial IVP 10/10/24 08:59 40 mg BID RYAN Administration Pregabalin 75 mg 09/11/24 11:49 09/12/24 07:21 Pregabalin 75 Mg Capsule PO 10/10/24 00:58 75 mg TID PRN Administration nerve pain muscle spasms Tizanidine HCl 2 mg 09/11/24 11:48 Tizanidine Hcl 2 Mg Tablet PO 10/10/24 00:58 Q12HR PRN Muscle Spasm Venlafaxine HCl 75 mg 09/10/24 06:00 09/12/24 14:27 Venlafaxine 37.5 Mg Tablet PO 10/10/24 05:59 Not Given TID RYAN Ziprasidone 60 mg 09/09/24 21:00 09/11/24 20:12 Ziprasidone 20 Mg Capsule PO 10/09/24 20:59 60 mg HS RYAN Administration Plan Assessment 64-year-old female with past medical history of CVA, hypertension, hypothyroidism s/p thyroidectomy, left upper extremity DVT, polysubstance use disorder, fibromyalgia, bipolar disorder, severe scoliosis, chronic back pain on opioids, osteoporosis, PTSD, anxiety, panic attacks, and disassociation disorder who presented to the ED on 09/09/2024 with worsening epigastric abdominal pain today and 2 months of black tarry stools #Acute blood loss anemia #Suspected upper GI bleed Patient presents with a subacute presentation of melena, with notable Hgb drop in the last few months based on CBC labs. Patient takes Xarelto for apparently history of DVT. She does endorse use of an NSAID meloxicam but reports has been taking this medication only a few days. Patient hemoglobins stable, does not require transfusion at the moment, PT, INR, PTT within normal range. Possible differentials include peptic ulcer disease, gastritis, H. pylori, malignancy, esophageal varices, AVM Hemoglobin 9.2 today EGD shows gastritis, no source of bleeding visualized Will need to do colonoscopy once prep is done Plan: -GI consulted, plans for EGD ?Colonoscopy today -Transfusing for Hgb <7 or symptomatic. -Avoid NSAIDs/ASA/chemical prophylaxis -Pantoprazole BID 40 mg IV -Continue to hold hold home Xarelto ?Trend CBC #Chronic gastritis Abdomen/pelvis CT without contrast showed multiple bilateral renal cysts, 4 mm soft calcification lower anterior right kidney, no hydronephrosis or ureteral calculi, multiple mildly fluid distended small bowel loops, consider ileus, enteritis such as Crohn's disease. Patient reports years of chronic abdominal pain symptoms, has had difficulty obtaining GI workup outpatient secondary to insurance. Differentials could include the above versus IBS versus IBD. EGD findings shows gastritis Plan: ? Continue with Protonix 40 mg IV BID #GALE on CKD 3A, resolved On admission creatinine 1.4, GFR 43. Previous average creatinine appears to be around 1.2, GFR 45-60. Creatinine 0.9 today Plan: - Avoid nephrotoxic agents ? Renally dose medicines ? Trend with CMP #History of hypothyroidism #Subclinical hyperthyroidism TSH 0.15 Patient is not taking the Synthroid 150, says she is taking Synthroid 125 as this could be contributing to elevated TSH Free T4 unremarkable Patient has history of hypothyroidism, however TSH was low, will need to recheck outpatient Plan: ?Adjusted to levothyroxine 125 mcg qday ?TSH repeat in 4 to 6 weeks outpatient #History of hypertension On admission BP is normotensive. Plan: - Continue to hold home blood pressure medicines #History of chronic back pain secondary to degenerative disc disease Plan: -[place] 10 mg q8h prn moderate to severe pain #History of fibromyalgia Plan: -Continue home pregabalin 75 mg TID #History of bipolar disorder Plan: -Continue home ziprasidone 60 mg HS ?Resumed home Xanax 0.5 mg twice daily ?Continue home Lamictal 50 mg hs #History of left upper extremity DVT Patient reports that she has been taking Xarelto for 2 years now because she had a deep vein thrombosis Need to determine if it was provoked or unprovoked determine if patient can be off Xarelto Plan: -Holding Xarelto at this time #Health Maintenance Disposition: Med telemetry DVT prophylaxis: SCDs GI prophylaxis: Protonix 40 mg IV twice daily Diet: Clear Liquid CODE STATUS: Full Patient seen and care discussed with my attending physician, Dr. Cristine Chambers, PGY-1 Attending Provider Attestation/Addendum I have examined the patient, reviewed labs and imaging findings, discussed the case with the resident(s), and reviewed entered orders. I agree with the plan of care as outlined in this note, with these additional summaries/recommendations: Patient seen at bedside. No acute overnight events. Patient admitted for acute blood loss anemia secondary to upper GI bleed. Continue PPI, n.p.o., and IV fluids. Patient went for EGD yesterday which revealed normal esophagus, gastritis, and erythematous duodenopathy. Source of ABLA not identified and patient receiving GoLytely prep and will undergo colonoscopy today for further evaluation. hemoglobin slightly worsened today to 9.2. Transfuse for hemoglobin less than 7. Continue clear liquid diet. Patient has history of DVT in left upper extremity years ago and has been on Xarelto which is currently being held. She reports she was previously on Plavix for history of CVA but currently on just xarelto. Patients GALE has resolved. Most likely secondary to prerenal azotemia. Continue to avoid nephrotoxic agents and renally dose medications. Hold home lisinopril for now. Continue home ziprasidone. Please see residents note for additional details of management. Dr. Cristine MD
[2024-09-12] MEDS: ZIPRASIDONE 20 MG CAPSULE 60 MG PO (20:52)
[2024-09-12] MEDS: lamoTRIgine 25 MG CHEW 50 MG PO (20:57)
[2024-09-13] VITALS (18 sets, daily range): BP systolic 104–153; BP diastolic 59–81; PULSE 50–95; RESP 16–97; TEMP 36.2–36.7; O2SAT 96–100
[2024-09-13] MEDS: HYDROcodone/APAP 10/325 TAB PO ×3 (00:46→20:06)
[2024-09-13 00:52] LABS: Hematocrit 26.8 % (36.0-46.0)
[2024-09-13 00:56] LABS: Hemoglobin 8.7 g/dL (12.0-16.0)
[2024-09-13] MEDS: LEVOTHYROXINE SODIUM 125 MCG TABLET PO (05:21)
[2024-09-13] MEDS: ACETAMINOPHEN 325 MG TABLET 650 MG PO (05:23)
[2024-09-13 06:11] LABS: Basophils % (Auto) 1 % (0-2.5); Eosinophils # (Auto) 0.3 Thou/mm3 (0.0-0.5); Eosinophils % (Auto) 5 % (0-10); Hematocrit 26.9 % (36.0-46.0); Immature Granulocytes % (Auto) 0 % (0-0); Immature Granulocytes Auto 0.02 Thou/mm3 (0.00-0.00); Lymphocytes # (Auto) 2.3 Thou/mm3 (1.0-4.8); Lymphocytes % (Auto) 34 % (10-50); Mean Corpuscular Hemoglobin 27.7 pg (25.0-35.0); Mean Corpuscular Volume 87 fL (80-100); Monocytes # (Auto) 0.7 Thou/mm3 (0.0-0.8); Monocytes % (Auto) 11 % (0-12); Neutrophils # (Auto) 3.4 Thou/mm3 (1.8-7.7); Neutrophils % (Auto) 49 % (37-80); Nucleated Red Blood Cell % 0 /100 WBC (0); Platelet Count 263 Thou/mm3 (140-440); RDW Standard Deviation 50.5 fL (36.4-46.3); Red Blood Count 3.11 Miln/mm3 (4.00-5.20); White Blood Count 6.8 Thou/mm3 (3.6-11.0)
[2024-09-13 06:20] LABS: Hemoglobin 8.6 g/dL (12.0-16.0)
[2024-09-13 07:05] LABS: Alanine Aminotransferase 7 U/L (10-49); Albumin, Serum 3.2 gm/dL (3.4-4.8); Albumin/Globulin Ratio 1.6 (1.2-2.2); Alkaline Phosphatase 55 U/L (46-116); Anion Gap 9 (7-16); Aspartate Amino Transferase 15 U/L (0-34); BUN/Creatinine Ratio 6 Ratio (12-20); Bilirubin,Total 0.2 mg/dL (0.3-1.2); Blood Urea Nitrogen 6 mg/dL (9-23); Calcium 7.8 mg/dL (8.3-10.6); Calcium (Corrected) 8.4 mg/dL (8.5-10.1); Carbon Dioxide 24.1 mMol/L (20.0-31.0); Chloride 110 mMol/L (98-107); Estimated Creatinine Clearance 51.1 mL/min (>60); Glucose 86 mg/dL (74-106); Magnesium 1.6 mg/dL (1.6-2.6); Osmolality,Calculated 281 (275-295); Phosphorous 2.8 mg/dL (2.4-5.1); Potassium 3.6 mMol/L (3.4-5.1); Sodium 143 mMol/L (136-145); Total Protein 5.2 gm/dL (5.7-8.2); eGFR > 60 See Note
[2024-09-13] MEDS: RINGERS LACTATED 1000 ML 1,000 ML 75 ML IV ×2 (08:12→22:21)
[2024-09-13] MEDS: cefTRIAXone/D5w 1gm IV premix 1 GM/50 ML BAG IV (08:13)
[2024-09-13] MEDS: LORazepam 0.5 MG TABLET PO ×2 (08:13→22:22)
[2024-09-13] MEDS: NICOTINE PATCH 14 MG/24 HR PATCH.TD24 TOP (08:13)
[2024-09-13] MEDS: PANTOPRAZOLE INJ 40 MG VIAL IVP ×2 (08:13→20:05)
[2024-09-13] MEDS: PREGABALIN 75 MG CAPSULE PO ×2 (08:51→22:23)
--- NOTE | 2024-09-13 10:47 | CHAP ---
Patient was visited by a Spiritual Care Volunteer on 09/13/2024 between 0900 and 0930 and received comfort, encouragement and/or prayer.
--- NOTE | 2024-09-13 14:28 | ESPR_ITS ---
Documentation for date of: 09/13/24 Subjective Subjective Interval history: Patient was seen and examined at bedside. Denied any abdominal pain any bleeding or any nausea or vomiting. However she reported mild weakness most likely secondary to her hemoglobin was. Will prescribe her on discharge iron supplements as her iron 36 which is low.. Yesterday patient underwent colonoscopy in which it showed internal hemorrhoids, the GI specialist Dr. John recommended external hemorrhoid ligation with flexible sigmoidoscopy. Will keep the patient on clear liquid diet for now and will advance diet after the procedure. 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 Objective Labs 09/13/24 05:02 09/13/24 05:02 Labs: Laboratory Results - last 24 hr 09/13/24 09/13/24 00:35 05:02 WBC 6.8 RBC 3.11 L Hgb 8.7 L 8.6 L Hct 26.8 L 26.9 L MCV 87 MCH 27.7 MCHC 32.0 RDW Std Deviation 50.5 H Plt Count 263 Neut % (Auto) 49 Lymph % (Auto) 34 [place] % (Auto) 11 Eos % (Auto) 5 Baso % (Auto) 1 Neut # (Auto) 3.4 Lymph # (Auto) 2.3 [place] # (Auto) 0.7 Eos # (Auto) 0.3 Baso # (Auto) 0.0 Immature Gran # (Auto) 0.02 H Absolute Nucleated RBC 0.00 Immature Gran % 0 Nucleated RBC % 0 Sodium 143 Potassium 3.6 Chloride 110 H Carbon Dioxide 24.1 Anion Gap 9 BUN 6 L Creatinine 1.0 Estim Creat Clear Calc 51.1 L eGFR > 60 BUN/Creatinine Ratio 6 L Glucose 86 Calculated Osmolality 281 Calcium 7.8 L Corrected Calcium 8.4 L Phosphorus 2.8 Magnesium 1.6 Total Bilirubin 0.2 L AST 15 ALT 7 L Alkaline Phosphatase 55 Total Protein 5.2 L Albumin 3.2 L Globulin 2.0 L Albumin/Globulin Ratio 1.6 Quality Measures Quality Measures none Assessment & Plan Assessment Current Active Medications: Generic Name Dose Route Start Last Admin Trade Name Freq PRN Reason Stop Dose Admin Acetaminophen 650 mg 09/11/24 11:48 09/13/24 05:23 Acetaminophen 325 Mg Tablet PO 10/09/24 22:09 650 mg Q6H PRN Administration Fever >100.4 or Pain 1-5 Hydrocodone Bitart/Acetaminophen 1 tab 09/10/24 13:45 09/13/24 08:51 Hydrocodone/Apap 10/325 Tab PO 09/15/24 13:44 1 tab Q8HR PRN Administration Pain 6-10 Lactated Ringer's 1,000 mls @ 75 mls/hr 09/09/24 21:10 09/13/24 08:12 Lactated Ringers IV 10/09/24 21:09 75 mls/hr .[id number] RYAN Administration Lamotrigine 50 mg 09/09/24 22:46 09/12/24 20:57 Lamotrigine 25 Mg Chew PO 10/09/24 20:59 50 mg HS RYAN Administration Levothyroxine Sodium 125 mcg 09/11/24 06:00 09/13/24 05:21 Levothyroxine Sodium 125 Mcg Tablet PO 10/11/24 05:59 125 mcg ACBR RYAN Administration Lorazepam 0.5 mg 09/11/24 07:45 09/13/24 08:13 Lorazepam 0.5 Mg Tablet PO 09/16/24 07:44 0.5 mg Q12H RYAN Administration Nicotine 14 mg 09/10/24 03:45 09/13/24 08:13 Nicotine Patch 14 Mg/24 Hr Patch.Td24 TOP 10/10/24 03:44 14 mg QDAY RYAN Administration Ondansetron HCl 4 mg 09/09/24 22:10 Ondansetron Inj 2 Mg/Ml Inj 2 Ml IV 10/09/24 22:09 Q6H PRN NAUSEA OR VOMITING Protocol Pantoprazole Sodium 40 mg 09/10/24 09:00 09/13/24 08:13 Pantoprazole Inj 40 Mg Vial IVP 10/10/24 08:59 40 mg BID RYAN Administration Pregabalin 75 mg 09/11/24 11:49 09/13/24 08:51 Pregabalin 75 Mg Capsule PO 10/10/24 00:58 75 mg TID PRN Administration nerve pain muscle spasms Tizanidine HCl 2 mg 09/11/24 11:48 Tizanidine Hcl 2 Mg Tablet PO 10/10/24 00:58 Q12HR PRN Muscle Spasm Venlafaxine HCl 75 mg 09/10/24 06:00 09/13/24 13:22 Venlafaxine 37.5 Mg Tablet PO 10/10/24 05:59 Not Given TID RYAN Ziprasidone 60 mg 09/09/24 21:00 09/12/24 20:52 Ziprasidone 20 Mg Capsule PO 10/09/24 20:59 60 mg HS RYAN Administration Plan 64-year-old female with past medical history of CVA, hypertension, hypothyroidism s/p thyroidectomy, left upper extremity DVT, polysubstance use disorder, fibromyalgia, bipolar disorder, severe scoliosis, chronic back pain on opioids, osteoporosis, PTSD, anxiety, panic attacks, and disassociation disorder who presented to the ED on 09/09/2024 with worsening epigastric abdominal pain today and 2 months of black tarry stools #Acute blood loss anemia # Internal and external hemorrhoids Patient presents with a subacute presentation of melena, with notable Hgb drop in the last few months based on CBC labs. Patient takes Xarelto for apparently history of DVT. She does endorse use of an NSAID meloxicam but reports has been taking this medication only a few days. Patient hemoglobins stable, does not require transfusion at the moment, PT, INR, PTT within normal range. Possible differentials include peptic ulcer disease, gastritis, H. pylori, malignancy, esophageal varices, AVM Hemoglobin 9.2 today EGD on 11 Sep 2024 shows gastritis, no source of bleeding visualized Will need to do colonoscopy once prep is done Colonoscopy showed internal hemorrhoids Plan: ?Hemorrhoid ligation tomorrow by Dr. John. After that we will advance her diet from clear liquid to full liquid and regular diet. -Transfusing for Hgb <7 or symptomatic. -Avoid NSAIDs/ASA/chemical prophylaxis - Will de-escalate pantoprazole to 40 mg IV today -Continue to hold hold home Xarelto, will discharge to the GI specialist in regard of the time of resuming Xarelto ?Trend CBC #Chronic gastritis Abdomen/pelvis CT without contrast showed multiple bilateral renal cysts, 4 mm soft calcification lower anterior right kidney, no hydronephrosis or ureteral calculi, multiple mildly fluid distended small bowel loops, consider ileus, enteritis such as Crohn's disease. Patient reports years of chronic abdominal pain symptoms, has had difficulty obtaining GI workup outpatient secondary to insurance. Differentials could include the above versus IBS versus IBD. EGD findings shows gastritis Plan: ? Continue with Protonix 40 mg IV BID #GALE on CKD 3A, resolved On admission creatinine 1.4, GFR 43. Previous average creatinine appears to be around 1.2, GFR 45-60. Creatinine 0.9 today Plan: - Avoid nephrotoxic agents ? Renally dose medicines ? Trend with CMP #History of hypothyroidism #Subclinical hyperthyroidism TSH 0.15 Patient is not taking the Synthroid 150, says she is taking Synthroid 125 as this could be contributing to elevated TSH Free T4 unremarkable Patient has history of hypothyroidism, however TSH was low, will need to recheck outpatient Plan: ?Adjusted to levothyroxine 125 mcg qday ?TSH repeat in 4 to 6 weeks outpatient #History of hypertension On admission BP is normotensive. Plan: - Continue to hold home blood pressure medicines #History of chronic back pain secondary to degenerative disc disease Plan: -[place] 10 mg q8h prn moderate to severe pain #History of fibromyalgia Plan: -Continue home pregabalin 75 mg TID #History of bipolar disorder Plan: -Continue home ziprasidone 60 mg HS ?Resumed home Xanax 0.5 mg twice daily ?Continue home Lamictal 50 mg hs #History of left upper extremity DVT Patient reports that she has been taking Xarelto for 2 years now because she had a deep vein thrombosis Need to determine if it was provoked or unprovoked determine if patient can be off Xarelto Plan: -Holding Xarelto at this time, will reach out to GI specialist about the timing of resuming Xarelto. #Health Maintenance Disposition: Med telemetry DVT prophylaxis: SCDs GI prophylaxis: Protonix 40 mg IV twice daily Diet: Clear Liquid CODE STATUS: Full - Patient's plan and care discussed with my attending, Dr. Sherman Gant MD Internal Medicine PGY-2 Attending Provider Attestation/Addendum I attest that I was physically present for the evaluation, physical examination, lab and imaging review of the patient with the residents. I discussed the case with the residents and agree with the findings and plans of care as documented above. Chandu Gould MD
--- NOTE | 2024-09-13 15:59 | PC.SS ---
SS was informed pt is requesting to speak with SS. SS met with pt who is requesting an advance directive and community resource list (both were provided).
--- NOTE | 2024-09-13 18:50 | SUR.PHASEI ---
Arrived to [facility] via [facility]. Report received from Larissa GONZALEZ. Resting with eyes open. Responding to questions and commands appropriately. No c/o pain, no s/o distress or discomfort.
--- NOTE | 2024-09-13 19:06 | SUR.PHASEI ---
Tolerating 7up PO.
--- NOTE | 2024-09-13 19:15 | SUR.PHASEI ---
Transferred to room 352 via gurney by Aurelia GONZALEZ. No c/o pain, no s/o distress or discomfort.
[2024-09-13] MEDS: ZIPRASIDONE 20 MG CAPSULE 60 MG PO (20:06)
[2024-09-13] MEDS: lamoTRIgine 25 MG CHEW 50 MG PO (22:22)
[2024-09-14] VITALS: BP 106/64; PULSE 61; PULSE 76; RESP 15; TEMP 36.6; O2SAT 96
[2024-09-14 04:00] VITALS: BP 119/57; PULSE 50; PULSE 54; RESP 16; TEMP 36.2; O2SAT 94
[2024-09-14] MEDS: HYDROcodone/APAP 10/325 TAB PO ×2 (04:17→12:11)
[2024-09-14] MEDS: LEVOTHYROXINE SODIUM 125 MCG TABLET PO (05:06)
[2024-09-14 06:31] LABS: Basophils % (Auto) 1 % (0-2.5); Eosinophils # (Auto) 0.4 Thou/mm3 (0.0-0.5); Eosinophils % (Auto) 5 % (0-10); Hematocrit 27.5 % (36.0-46.0); Immature Granulocytes % (Auto) 0 % (0-0); Immature Granulocytes Auto 0.02 Thou/mm3 (0.00-0.00); Lymphocytes # (Auto) 1.8 Thou/mm3 (1.0-4.8); Lymphocytes % (Auto) 28 % (10-50); Mean Corpuscular HGB Conc 32.7 g/dl (31.0-37.0); Mean Corpuscular Hemoglobin 27.7 pg (25.0-35.0); Mean Corpuscular Volume 85 fL (80-100); Monocytes # (Auto) 0.8 Thou/mm3 (0.0-0.8); Monocytes % (Auto) 11 % (0-12); Neutrophils # (Auto) 3.6 Thou/mm3 (1.8-7.7); Neutrophils % (Auto) 55 % (37-80); Nucleated Red Blood Cell % 0 /100 WBC (0); Platelet Count 286 Thou/mm3 (140-440); RDW Standard Deviation 50.1 fL (36.4-46.3); Red Blood Count 3.25 Miln/mm3 (4.00-5.20); White Blood Count 6.6 Thou/mm3 (3.6-11.0)
[2024-09-14 07:45] LABS: Alanine Aminotransferase 8 U/L (10-49); Albumin, Serum 3.2 gm/dL (3.4-4.8); Albumin/Globulin Ratio 1.5 (1.2-2.2); Alkaline Phosphatase 57 U/L (46-116); Anion Gap 7 (7-16); Aspartate Amino Transferase 13 U/L (0-34); BUN/Creatinine Ratio 6 Ratio (12-20); Bilirubin,Total 0.2 mg/dL (0.3-1.2); Blood Urea Nitrogen 7 mg/dL (9-23); Calcium 8.1 mg/dL (8.3-10.6); Calcium (Corrected) 8.7 mg/dL (8.5-10.1); Carbon Dioxide 24.2 mMol/L (20.0-31.0); Chloride 111 mMol/L (98-107); Creatinine (Component) 1.1 mg/dL (0.6-1.3); Estimated Creatinine Clearance 46.5 mL/min (>60); Globulin 2.1 gm/dL (2.3-3.5); Glucose 91 mg/dL (74-106); Magnesium 1.7 mg/dL (1.6-2.6); Osmolality,Calculated 281 (275-295); Phosphorous 3.1 mg/dL (2.4-5.1); Potassium 3.8 mMol/L (3.4-5.1); Sodium 142 mMol/L (136-145); Total Protein 5.3 gm/dL (5.7-8.2); eGFR 57 See Note
[2024-09-14 08:00] VITALS: BP 106/70; PULSE 50; PULSE 75; RESP 18; TEMP 36.2; O2SAT 97
[2024-09-14] MEDS: LORazepam 0.5 MG TABLET PO (09:02)
[2024-09-14] MEDS: NICOTINE PATCH 14 MG/24 HR PATCH.TD24 TOP (09:02)
[2024-09-14] MEDS: PANTOPRAZOLE INJ 40 MG VIAL IVP (09:03)
--- NOTE | 2024-09-14 10:54 | ESDS_ITS ---
<Statement entered by Trupti Gant MD - 09/15/24 17:12> Patient was seen and examined at bedside, agree on the discharge plan on discharge. - Patient's plan and care discussed with my attending, Dr. Sherman Gant MD Internal Medicine PGY-2 Planned Discharge Date 09/14/24 DS: Providers Provider Date of admission: 09/09/24 22:10 Primary care physician: Carlee Ovalle PA-C Admitting Provider: Grant Perez MD Attending Provider on Admission: Chandu Gould MD Consults: 09/09/24 21:10 Consult to Gastroenterology Stat Comment: Consulting Provider: Ashley John 09/10/24 00:34 Referral Smoking Cessation Counseling Routine Comment: Smoking Cessation Education Needed Attending Provider on DC: Chandu Gould MD Discharging Provider: Chandu Gould MD DS: Diagnosis Problem List Completed Was Problem List Reviewed/Reconciled?: Yes Hospital Course Hospital Course Hospital course: Patient is a 64-year-old female with past medical history of CVA, hypertension, hypothyroidism s/p thyroidectomy, left upper extremity DVT, polysubstance use disorder, fibromyalgia, bipolar disorder, severe scoliosis, chronic back pain on opioids, osteoporosis, PTSD, anxiety, panic attacks, and disassociation disorder who was admitted to [facility] on 09/09/2024 for acute blood loss anemia and symptomatic anemia likely secondary to internal/external hemorrhoids. Patient had been having ongoing episodes of dark stools. Patient had come to the ED with a blood pressure 115/74, heart rate 104, respiratory 18, temperature of 99.3, saturating 99% on room air. Labs are significant for normocytic anemia with hemoglobin 7.8, creatinine 1.4, GFR 43. Urinalysis showed +3 bacteria, [address] of the abdomen pelvis showed multiple bilateral renal cysts, 4 mm calcification of lower anterior right kidney. FOBT was positive while in the ED. Medicine was consulted for further management of acute blood loss anemia. While patient was on the floors, gastroenterology, Dr. John, was consulted who recommended EGD for the patient. Was found that the patient had chronic gastritis findings on EGD. Gastroenterology pursued with colonoscopy intervention and which showed internal and external hemorrhoids of the third- degree were finding the anus and rectum. Patient ended up receiving flexible sigmoidoscopy with banding of hemorrhoids. GI recommended for patient to take iron and vitamin C for a month to improve with anemia. He also recommended for patient to follow-up with PCP for further management of anemia. Likely etiology of patient's bleeding related to internal hemorrhoids, however patient did have risk factors including taking NSAIDs, is on Plavix for history of CVA and also has been taking Xarelto for a number of years for DVT. Due to patient having DVT years ago, we had stopped the patient's Xarelto, and continued patient's Plavix as well while avoiding any other NSAIDs. We also recommended patient to follow-up outpatient as well. Patient also was having bradycardia intermittently, however was asymptomatic, we recommended to hold patient's donezepil as this is a medicine he does not consistently take and could be a side effect of the bradycardia. Discharge Instructions: Follow up with your PCP within one week of discharge I will hold your blood pressure medicine, follow up with your PCP to decide upon resuming it Purchase a blood pressure cuff to measure your blood pressure once a day I will discontinue your blood thinner, Xarleto, as this time in the setting of GI bleed as you may not need this medicine as your blood clot was years ago Resume taking your Plavix once a day due to your stroke history Avoid any NSAIDs including Naproxen (Aleeve), Meloxicam, and Motrin (Ibuprofen) as these medicines can make you bleed I will prescribe Iron for your anemia, take this every other day for one month. Purchase Vitamin C over the counter, and take it once a day for one month Continue taking Famotidine once a day for your chronic gastritis. Take it once a day in the morning 30 minutes before food, everyday. I will hold your Donzepil at this time due to bradycardia. Speak with your PCP in regards to resuming it. Return to the ED if your symptoms worsen or return Problem List: #Acute blood loss anemia #Internal and external hemorrhoids #Chronic gastritis #GALE on CKD 3A, resolved #History of hypothyroidism #Subclinical hyperthyroidism #History of hypertension #History of chronic back pain secondary to degenerative disc disease #History of fibromyalgia #History of bipolar disorder #History of left upper extremity DVT #Asymptomatic Bradycardia #Bilateral renal cysts Discharge summary was reviewed with my attending Dr. Gould and my senior resident Dr. Alfreda Chambers, PGY-1 Time Spent with Patient Time attestation: Total time spent providing and/or coordinating discharge services: Time spent: Less than 30 minutes Exam Vital Signs Temp Pulse Resp BP Pulse Ox O2 Del Method O2 Flow Rate 97.2 F 75 18 106/70 97 Room Air 3 09/14/24 08:00 09/14/24 08:00 09/14/24 08:00 09/14/24 08:00 09/14/24 08:00 09/14/24 08:00 09/13/24 18:41 Narrative Exam General: AAOx3, NAD, pleasant female, appears to be disheveled and unkempt HEENT: Dry mucous membranes, conjunctiva pale bilaterally, EOMI, PERRLA, poor dentition Cardiovascular: S1, S2, radial pulses +2 bilat, RRR Pulmonary: CTAB bilat no cough, no wheezing GI: No tenderness to light or deep palpitation, no guarding, rigidity, rebound tenderness or distension Extremities: No presence of trace or pitting edema in lower extremities bilaterally, dorsalis pedis pulses +2 bilaterally, no apparent sign of including erythema, calf tenderness or swelling lower extremities bilaterally Neuro: AAOx3, no focal motor or sensory deficits in the UE or LE bilat Psych: Good judgement, thought and behavior. Cooperative Discharge Plan Plan Patient Disposition: HOME (Self Care) Care Plan Goals: Discharge Instructions: Follow up with your PCP within one week of discharge I will hold your blood pressure medicine, follow up with your PCP to decide upon resuming it Purchase a blood pressure cuff to measure your blood pressure once a day I will discontinue your blood thinner, Xarleto, as this time in the setting of GI bleed as you may not need this medicine as your blood clot was years ago Resume taking your Plavix once a day due to your stroke history Avoid any NSAIDs including Naproxen (Aleeve), Meloxicam, and Motrin (Ibuprofen) as these medicines can make you bleed I will prescribe Iron for your anemia, take this every other day for one month. Purchase Vitamin C over the counter, and take it once a day for one month Continue taking Famotidine once a day for your chronic gastritis. Take it once a day in the morning 30 minutes before food, everyday. I will hold your Donzepil at this time due to bradycardia. Speak with your PCP in regards to resuming it. Return to the ED if your symptoms worsen or return Prescriptions/Referrals Prescriptions/Med Rec: New ferrous sulfate 325 mg (65 mg iron) tablet 325 mg PO Q OTHER DAY 30 Days Qty: 15 0RF Rx Instructions: Take one tablet by mouth every day for one month clopidogrel [Plavix] 75 mg tablet 75 mg PO QDAY 30 Days Qty: 30 1RF Rx Instructions: Take one tablet once a day by mouth everyday Continued ziprasidone HCl [Geodon] 80 mg Capsule 60 mg PO QDAY famotidine 20 mg Tablet 20 mg PO QDAY levothyroxine 150 mcg Tablet 125 mcg PO ACBR lorazepam 1 mg tablet 0.5 mg PO Q12H Patient Comments: TAKE 1 TABLET BY MOUTH AT BEDTIME. MAY TAKE AN ADDITIONAL 1/2 TABLET DURING THE DAY FOR ANXIETY acetaminophen 650 mg tablet extended release 650 mg PO Q8H PRN (Reason: pain) Patient Comments: TAKE ONE TABLET BY MOUTH EVERY 8 HOURS NEEDED FOR PAIN lamotrigine 25 mg tablet 100 mg PO HS Patient Comments: TAKE TWO TABLETS BY MOUTH EVERY DAY tizanidine 2 mg tablet 2 mg PO Q12HR PRN (Reason: Muscle Spasm) Patient Comments: TAKE ONE TABLET BY MOUTH EVERY 12 hours NEEDED FOR MUSCLE spasm DO not exceed THREE doses in 24 hours docusate sodium [Stool Softener] 250 mg Capsule 250 mg PO HSPRN PRN (Reason: Constipation) cetirizine 10 mg tablet 10 mg PO DAILY PRN (Reason: Allergy Symptoms) Patient Comments: TAKE ONE TABLET BY MOUTH EVERY DAY NEEDED FOR ALLERGY pregabalin 75 mg capsule 75 mg PO TID PRN (Reason: Pain) Patient Comments: TAKE ONE CAPSULE BY MOUTH THREE TIMES DAILY NEEDED FOR PAIN clopidogrel 75 mg tablet 75 mg PO DAILY Patient Comments: TAKE ONE TABLET BY MOUTH EVERY DAY FOR THE HEART hydrocodone-acetaminophen 10-325 mg Tablet 1 tab PO TID PRN (Reason: pain) Held donepezil [Aricept] 5 mg Tablet 5 mg PO HS Hold Instructions: resume with PCP, holding due to bradycardia lisinopril 10 mg tablet 10 mg PO QDAY Qty: 30 0RF Hold Instructions: resume upon visit with PCP as your blood pressure is low Discontinued acetaminophen [Tylenol Extra Strength] 500 mg tablet 1,000 mg PO Q6H PRN (Reason: fever or pain) Qty: 30 0RF Xarelto 20 mg Tablet 20 mg PO QDAY Rx Instructions: must administer with evening meal meloxicam 15 mg tablet 15 mg PO QDAY Qty: 30 0RF Referrals: Carlee Ovalle PA-C [Primary Care Provider] - Patient/Caregiver Discharge Instructions Education Materials: Bleeding Gastrointestinal, Understanding Rectal Bleeding Print Language: Israeli Stand Alone Forms: Fany Award Info., Patient Portal Info Letter Discharge Order Discharge Orders: Discharge (Routine); Ordered 09/14/24 Ordered By: John Chambers Quality Discharge Quality Measures VTE prophylaxis (SCDs) Attestestation MD Attestation I attest that I was physically present for the evaluation, physical examination, lab and imaging review of the patient with the residents. I discussed the case with the residents and agree with the findings and plans of care as documented above. Chandu Gould MD
[2024-09-14 12:00] VITALS: BP 107/64; PULSE 56; PULSE 58; RESP 19; TEMP 36.4; O2SAT 97
--- NOTE | 2024-09-14 12:50 | PD.IMPROG ---
Documentation for date of: 09/14/24 Exam Vital Signs Temp Pulse Resp BP Pulse Ox O2 Del Method O2 Flow Rate 97.6 F 56 L 19 107/64 97 Room Air 3 09/14/24 12:00 09/14/24 12:00 09/14/24 12:00 09/14/24 12:00 09/14/24 12:00 09/14/24 12:00 09/13/24 18:41 Objective Labs 09/14/24 04:45 09/14/24 04:45 Labs: Laboratory Results - last 24 hr 09/14/24 04:45 WBC 6.6 RBC 3.25 L Hgb 9.0 L Hct 27.5 L MCV 85 MCH 27.7 MCHC 32.7 RDW Std Deviation 50.1 H Plt Count 286 Neut % (Auto) 55 Lymph % (Auto) 28 [place] % (Auto) 11 Eos % (Auto) 5 Baso % (Auto) 1 Neut # (Auto) 3.6 Lymph # (Auto) 1.8 [place] # (Auto) 0.8 Eos # (Auto) 0.4 Baso # (Auto) 0.0 Immature Gran # (Auto) 0.02 H Absolute Nucleated RBC 0.00 Immature Gran % 0 Nucleated RBC % 0 Sodium 142 Potassium 3.8 Chloride 111 H Carbon Dioxide 24.2 Anion Gap 7 BUN 7 L Creatinine 1.1 Estim Creat Clear Calc 46.5 L eGFR 57 L BUN/Creatinine Ratio 6 L Glucose 91 Calculated Osmolality 281 Calcium 8.1 L Corrected Calcium 8.7 Phosphorus 3.1 Magnesium 1.7 Total Bilirubin 0.2 L AST 13 ALT 8 L Alkaline Phosphatase 57 Total Protein 5.3 L Albumin 3.2 L Globulin 2.1 L Albumin/Globulin Ratio 1.5 Assessment & Plan A&P Narrative # Melena # Acute posthemorrhagic anemia # Pain abdomen Plan N.p.o. midnight tonight except p.o. meds IV Protonix to continue fiberoptic esophagogastroduodenoscopy with possible biopsy possible therapeutic intervention under intravenous moderate sedation scheduled for tomorrow morning serial CBC Other medical problems include Essential hypertension Bipolar disorder Left upper extremity deep vein thrombosis patient has been taking Xarelto Thank you very much for the opportunity to participate in care of this patient Time Spent With Patient Time: Total time spent is greater than 50% in coordination of care (as documented) at patient's floor/unit and/or counseling patient:
== END 2024-09-14 12:48 | disposition home or self-care (01) | DRG 226 ==
LOC: SERX 21:31 → SERHOLD 22:50 → S3NX 09-10 00:21
PROVIDERS: Nurse Practitioner Family; Specialist; Student in an Organized Health Care Education/Training Program; Admitting Provider Student in an Organized Health Care Education/Training Program; Emergency Provider Emergency Medicine; PCP Physician Assistant Medical; Visit Provider Student in an Organized Health Care Education/Training Program
PROC: (CPT 43239; principal; 2024-09-11 13:15)
PROC: 0DJD8ZZ Inspection of Lower Intestinal Tract, Via Natural or Artificial Opening Endoscopic (ICD-10-PCS; CPT 45378; principal; 2024-09-12 19:00)
DX: K29.51 Unspecified chronic gastritis with bleeding (principal); F41.0 Panic disorder [episodic paroxysmal anxiety]; F43.10 Post-traumatic stress disorder, unspecified; M79.7 Fibromyalgia; M81.0 Age-related osteoporosis without current pathological fracture; D62 Acute posthemorrhagic anemia; I12.9 Hypertensive chronic kidney disease with stage 1 through stage 4 chronic kidney disease, or unspecified chronic kidney disease; N18.31 Chronic kidney disease, stage 3a; G89.29 Other chronic pain; F31.9 Bipolar disorder, unspecified; M19.90 Unspecified osteoarthritis, unspecified site; N28.1 Cyst of kidney, acquired; Z86.718 Personal history of other venous thrombosis and embolism; K29.00 Acute gastritis without bleeding; M54.9 Dorsalgia, unspecified; K31.89 Other diseases of stomach and duodenum; K64.4 Residual hemorrhoidal skin tags; K64.8 Other hemorrhoids; R00.1 Bradycardia, unspecified; M51.369 Other intervertebral disc degeneration, lumbar region without mention of lumbar back pain or lower extremity pain; Z79.891 Long term (current) use of opiate analgesic; Z79.890 Hormone replacement therapy; Z86.73 Personal history of transient ischemic attack (TIA), and cerebral infarction without residual deficits
CPT/HCPCS: 36415; 74176; 80048; 80053; 81001; 82270; 83690; 83735; 84100; 84439; 84443; 85014; 85018; 85025; 85610; 85730; 86850; 86900; 86901; 86923; 87086; 93005; 93225; 96361; 96374; 99285; A4217; J0696; J1200; J2250; J2470; J3010; J7120; P9016; A9270

== ENCOUNTER 2024-11-23 13:46 | Emergency (ER) | payer MEDICAID, SELFPAY ==
[2024-11-23 13:59] VITALS: BP 116/80; PULSE 96; RESP 20; TEMP 36.9; O2SAT 96; BMI 31.2
--- NOTE | 2024-11-23 14:01 | EKG_ITS ---
[facility] Test Date: 2024-11-23 Pat Name: CAPRICE PENA Department: Room: - Gender: Female Rn Surgical: : 1960 Requested By: Hilton Lackey (ANJEL) Order Number: [id number] Reading MD: Hilton Lackey (SURVIVAL SPECIALIST) Measurements Intervals [place]mo Rate: 103 P: 59 NC: 181 QRS: -27 QRSD: 143 T: -27 QT: 379 QTc: 498 Interpretive Statements SINUS TACHYCARDIA BORDERLINE LEFT AXIS DEVIATION [QRS AXIS < -20] INTRAVENTRICULAR CONDUCTION DELAY [130+ ms QRS DURATION] Compared to ECG 09/10/2024 08:23:33 Intraventricular conduction delay now present Sinus bradycardia no longer present Myocardial infarct finding no longer present /store/S0/[id number]/[id number].pdf
--- NOTE | 2024-11-23 14:01 | XR_ITS ---
Examination: PA lateral chest 2 views TECHNIQUE: Upright PA lateral chest 2 views Date and time: November 23, 2024 1430 hours Comparison August 27, 2024 INDICATIONS: Chest pain radiating to left arm with shortness of breath and weakness beginning 3 days ago. FINDINGS: Normal heart size. No lobar pneumonia or pulmonary edema Moderate thoracic spondylosis Old right-sided rib fractures IMPRESSION: No pneumonia or pulmonary edema
--- NOTE | 2024-11-23 14:01 | PD.EDRME ---
Rapid Medical Screening Exam RME Arrival date/time: 11/23/24 13:46 64-year-old female presents emergency department today for complaints of chest pain Chief Complaint: Chest Pain Vital signs: Vital Signs Temperature 98.5 F 11/23/24 13:59 Pulse Rate 96 11/23/24 13:59 Respiratory Rate 20 11/23/24 13:59 Blood Pressure 116/80 11/23/24 13:59 Pulse Oximetry (%) 96 11/23/24 13:59 Oxygen Delivery Method Room Air 11/23/24 13:59
[2024-11-23 14:30] LABS: Basophils # (Auto) 0.0 Thou/mm3 (0.0-0.2); Basophils % (Auto) 1 % (0-2.5); Eosinophils # (Auto) 0.3 Thou/mm3 (0.0-0.5); Eosinophils % (Auto) 3 % (0-10); Hematocrit 32.2 % (36.0-46.0); Hemoglobin 10.5 g/dL (12.0-16.0); Immature Granulocytes Auto 0.04 Thou/mm3 (0.00-0.00); Lymphocytes # (Auto) 1.7 Thou/mm3 (1.0-4.8); Lymphocytes % (Auto) 22 % (10-50); Mean Corpuscular HGB Conc 32.6 g/dl (31.0-37.0); Mean Corpuscular Hemoglobin 26.8 pg (25.0-35.0); Mean Corpuscular Volume 82 fL (80-100); Monocytes # (Auto) 0.5 Thou/mm3 (0.0-0.8); Monocytes % (Auto) 7 % (0-12); Neutrophils # (Auto) 5.5 Thou/mm3 (1.8-7.7); Neutrophils % (Auto) 68 % (37-80); Nucleated Red Blood Cell # 0.00 Thou/mm3 (0.00-0.00); Nucleated Red Blood Cell % 0 /100 WBC (0); Platelet Count 311 Thou/mm3 (140-440); RDW Standard Deviation 56.5 fL (36.4-46.3); Red Blood Count 3.92 Miln/mm3 (4.00-5.20); White Blood Count 8.1 Thou/mm3 (3.6-11.0)
[2024-11-23 14:45] LABS: INR 1.0 (0.9-1.3); Partial Thromboplastin Time 27.8 Seconds (22.0-36.0); Prothrombin Time 10.6 Seconds (9.0-12.2)
[2024-11-23 14:46] LABS: B-Type Natriuretic Peptide < 20 pg/mL (0-100)
[2024-11-23 14:57] LABS: Alanine Aminotransferase < 7 U/L (10-49); Albumin, Serum 4.4 gm/dL (3.4-4.8); Albumin/Globulin Ratio 1.5 (1.2-2.2); Alkaline Phosphatase 85 U/L (46-116); Anion Gap 10 (7-16); Aspartate Amino Transferase 17 U/L (0-34); BUN/Creatinine Ratio 8 Ratio (12-20); Bilirubin,Total 0.2 mg/dL (0.3-1.2); Blood Urea Nitrogen 15 mg/dL (9-23); Calcium 9.5 mg/dL (8.3-10.6); Calcium (Corrected) 9.5 mg/dL (8.5-10.1); Carbon Dioxide 23.8 mMol/L (20.0-31.0); Chloride 108 mMol/L (98-107); Creatinine (Component) 1.8 mg/dL (0.6-1.3); Estimated Creatinine Clearance 28.8 mL/min (>60); Globulin 2.9 gm/dL (2.3-3.5); Glucose 118 mg/dL (74-106); Magnesium 1.5 mg/dL (1.6-2.6); Osmolality,Calculated 284 (275-295); Potassium 4.3 mMol/L (3.4-5.1); Sodium 142 mMol/L (136-145); Total Protein 7.3 gm/dL (5.7-8.2); Troponin I < 0.002 ng/mL (0.0-0.045); eGFR 31 See Note
[2024-11-23 16:43] LABS: Collection Type, Urine Clean Catch
[2024-11-23 17:38] LABS: Bacteria,Urine 1+; Bilirubin,Urine Negative (Negative); Blood,Urine Negative (Negative); Clarity,Urine Clear (Clear/Hazy); Color,Urine Lt-Yellow (Lt Yel-Yel); Glucose, Urine Negative (Negative); Hyaline Casts,Urine < 1 /hpf (0-1); Ketones,Urine Negative (Negative); Leukocyte Esterase,Urine Positive (Negative); Nitrite,Urine Negative (Negative); PH,Urine 6.0 (5.0-7.0); Protein,Urine Negative (Neg - Trace); RBC,Urine 1 /hpf (0-3); Specific Gravity,Urine 1.013 (1.001-1.035); Squamous Epithelial Cell,Urine 3 /hpf (0-5); Urobilinogen,Urine Negative mg/dL (0.0-1.0); WBC,Urine 5 /hpf (0-5)
[2024-11-23 17:50] VITALS: BP 116/78; PULSE 100; RESP 18; TEMP 36.7; O2SAT 96
[2024-11-23 17:55] LABS: Amphetamine/Methamp Scrn,U Negative (Negative); Barbiturate Screen,Urine Negative (Negative); Benzodiazepines Screen,Urine Negative (Negative); Benzoylecgonine Screen, Ur Negative (Negative); Fentanyl Screen,Urine Negative (Negative); Opiate Screen,Urine Positive (Negative); THC Screen,Urine Positive (Negative)
--- NOTE | 2024-11-23 18:08 | PD.EDCHEST ---
ED Chest Pain RME/HPI General Chief Complaint: Chest Pain Stated Complaint: CHEST AND LEFT ARM PAIN W/ SOB Time Seen by Provider: 11/23/24 18:08 Arrival date/time: 11/23/24 13:46 Limitations: no limitations RME / HPI RME / HPI narrative: Patient is a 64-year-old female with past medical history of CVA, hypertension, hypothyroidism s/p thyroidectomy, left upper extremity DVT, polysubstance use disorder, fibromyalgia, bipolar disorder, severe scoliosis, chronic back pain on opioids, osteoporosis, PTSD, anxiety, panic attacks, and disassociation disorder. She is here today with subjective shortness of breath and chest pain. She denies any fevers or chills. Has no vomiting or diarrhea. Has no changes in urination. Denies any syncope or lower leg edema. She has no other acute complaints or concerns. Related Data Home Medications ?Medication ?Instructions ?Recorded ?Confirmed ziprasidone HCl 80 mg capsule 60 mg PO QDAY 04/05/19 09/10/24 (Geodon) cetirizine 10 mg tablet 10 mg PO DAILY PRN Allergy Symptoms 03/27/23 09/10/24 docusate sodium 250 mg capsule 250 mg PO HSPRN PRN Constipation 03/27/23 09/10/24 (Stool Softener) lamotrigine 25 mg tablet 100 mg PO HS 03/27/23 09/10/24 pregabalin 75 mg capsule 75 mg PO TID PRN Pain 03/27/23 09/10/24 tizanidine 2 mg tablet 2 mg PO Q12HR PRN Muscle Spasm 03/27/23 09/10/24 clopidogrel 75 mg tablet 75 mg PO DAILY 04/16/23 09/10/24 hydrocodone 10 mg-acetaminophen 1 tab PO TID PRN pain 04/17/23 09/10/24 325 mg tablet donepezil 5 mg tablet (Aricept) 5 mg PO HS 02/04/24 09/10/24 Held on 09/14/24. Instructions: resume with PCP, holding due to bradycardia famotidine 20 mg tablet 20 mg PO QDAY 02/04/24 09/10/24 levothyroxine 150 mcg tablet 125 mcg PO ACBR 02/04/24 09/10/24 acetaminophen 650 mg 650 mg PO Q8H PRN pain 09/10/24 09/10/24 tablet,extended release lorazepam 1 mg tablet 0.5 mg PO Q12H 09/10/24 09/10/24 Previous Rx's ?Medication ?Instructions ?Recorded lisinopril 10 mg tablet 10 mg PO QDAY #30 tabs 04/21/24 Held on 09/14/24. Instructions: resume upon visit with PCP as your blood pressure is low clopidogrel 75 mg tablet (Plavix) 75 mg PO QDAY 1 month #30 tabs 09/14/24 Allergies Allergy/AdvReac Type Severity Reaction Status Date / Time diphenhydramine Allergy Severe ITCHING Verified 11/23/24 13:50 ketorolac Allergy Severe ITCHING Verified 11/23/24 13:50 Penicillins Allergy Severe ITCH Verified 11/23/24 13:50 sumatriptan succinate Allergy Severe ITCHING, Verified 11/23/24 13:50 VOMITING propranolol Allergy Unknown Verified 11/23/24 13:50 codeine AdvReac Severe Vomiting Verified 11/23/24 13:50 Review of Systems Review of Systems Systems Reviewed: All systems reviewed, normal except as documented ED Exam General Limitations: Present no limitations General appearance: Present alert and in no apparent distress Head Head exam: Present atraumatic Eye Eye exam: Present normal appearance, PERRL and EOMI ENT ENT exam: Present normal exam, normal oropharynx and mucous membranes moist Neck Neck exam: Present normal inspection, full ROM and trachea midline Chest Chest inspection: Present normal inspection and symmetric chest wall rise Respiratory Respiratory exam: Present normal lung sounds bilaterally Cardiovascular Cardiovascular exam: Present regular rate, normal rhythm and normal heart sounds Abdominal Exam Abdominal exam: Present soft and normal bowel sounds Extremities Exam Extremities exam: Present normal inspection and full ROM Back Exam Back exam: Present normal inspection and full ROM Neurological Exam Neurological exam: Present alert and oriented X3 Psychiatric Psychiatric exam: Present normal affect and normal mood Skin Skin exam: Present warm, dry, intact and normal color Course Quality Measures none Orders Category Date Time Status EKG (ED ONLY) *Do not use* NOW Care 11/23/24 14:01 Completed EKG (ED Only) Stat Exams 11/23/24 14:01 Draft XR chest 2V Stat Exams 11/23/24 14:01 Completed B-Type Natriuretic Peptide Stat Lab 11/23/24 14:17 Completed CBC Stat Lab 11/23/24 14:17 Completed Comprehensive Metabolic Panel Stat Lab 11/23/24 14:17 Completed Drug Screen,Urine Stat Lab 11/23/24 16:33 Completed Magnesium Stat Lab 11/23/24 14:17 Completed Partial Thromboplastin Time Stat Lab 11/23/24 14:17 Completed Prothrombin Time with INR Stat Lab 11/23/24 14:17 Completed Troponin I Stat Lab 11/23/24 14:17 Completed Type and Screen Stat Lab 11/23/24 14:17 Completed Urinalysis Stat Lab 11/23/24 16:33 Completed Acetaminophen Tab [Tylenol ES Tab] Med 11/23/24 18:13 Discontinued 1,000 mg PO X1 ONE Ondansetron Inj [Zofran Inj] Med 11/23/24 18:13 Discontinued 4 mg IVP X1 ONE Sodium Chloride 0.9% 1000 ml [Ns] 1,000 ml Med 11/23/24 18:13 Discontinued IV 999 mls/hr Vital Signs Vital signs: Vital Signs Temperature 98.5 F 11/23/24 13:59 Pulse Rate 96 11/23/24 13:59 Respiratory Rate 20 11/23/24 13:59 Blood Pressure 116/80 11/23/24 13:59 Pulse Oximetry (%) 96 11/23/24 13:59 Oxygen Delivery Method Room Air 11/23/24 13:59 Chest Pain MDM Narrative MDM Narrative:: Patient is a 64-year-old female with past medical history of CVA, hypertension, hypothyroidism s/p thyroidectomy, left upper extremity DVT, polysubstance use disorder, fibromyalgia, bipolar disorder, severe scoliosis, chronic back pain on opioids, osteoporosis, PTSD, anxiety, panic attacks, and disassociation disorder. She is here today with subjective shortness of breath and chest pain. She denies any fevers or chills. Has no vomiting or diarrhea. Has no changes in urination. Denies any syncope or lower leg edema. She has no other acute complaints or concerns. On exam, patient is nontoxic-appearing and in no visible signs of distress. She is self ambulating a walker which is her baseline year. Her vital signs are stable. Workup reveals anemia with a hemoglobin 10.5 and hematocrit 32.2. Her creatinine is 1.8. This is new. Her urinalysis is unremarkable. We discussed her test results including her GALE. Patient received 1 L of normal saline here. She wanted to leave the hospital afterwards. She was advised to follow-up with her primary doctor this week closely. Return at anytime for worsening or emergent changes. Patient data External records reviewed:: [facility] previous records Clinical information provided by:: patient Social determinants that could affect healthcare access:: none Patient has the following chronic illnesses:: past medical history of CVA, hypertension, hypothyroidism s/p thyroidectomy, left upper extremity DVT, polysubstance use disorder, fibromyalgia, bipolar disorder, severe scoliosis, chronic back pain on opioids, osteoporosis, PTSD, anxiety, panic attacks, and disassociation disorder How is presenting disease/condition affected by chronic disease/condition?: uneffected by Evaluation data The following diagnostics were reviewed and interpreted by me:: lab results (CBC reveals anemia. CMP reveals GALE.), radiology exam(s) (Chest reveals clear expanding lung without any mass or infiltrate.) and EKG tracing(s) (Mild sinus tachycardia at [address] changes or dynamic T waves.) Lab and/or radiology exams considered but not ordered:: n/a Interpretation Summary: Anemia and GALE Medications / Prescriptions Medications or Prescriptions considered but not ordered:: n/a Medication administrations:: Medication Administration History Discontinued Medications Acetaminophen (Acetaminophen 500 Mg Tablet) 1,000 mg PO X1 ONE Stop: 11/23/24 18:14 Last Admin: 11/23/24 18:47 Dose: Not Given Documented By: DONATO Non-Admin Reason: Patient Refused Sodium Chloride (Ns) 1,000 mls @ 999 mls/hr IV .Q1H1M ONE Stop: 11/23/24 19:13 Last Infusion: 11/23/24 19:29 Dose: Infused Documented By: Admin: 11/23/24 18:46 Dose: 999 mls/hr Documented By: DONATO Ondansetron HCl (Ondansetron Inj 2 Mg/Ml Inj 2 Ml) 4 mg IVP X1 ONE; Protocol Stop: 11/23/24 18:14 Last Admin: 11/23/24 18:46 Dose: 4 mg Documented By: DONATO See above Consultations Consultation(s) initiated? (list below): No Diagnosis Chest Pain Differential Diagnosis: pneumothorax, costochondritis and chest pain Most likely diagnosis given after review of the tests above:: Anemia, GALE, chest pain Admission Indicated Admission indicated?: not indicated Admission Request Was there a request for admission?: No Disposition Plan Disposition Plan: Discharge Discharge Attestation Discharge Attestation: The patient and all family members were given an opportunity to ask questions and understood the discharge instructions. Discharge instructions specifically effects, indications for sooner follow up or return to the emergency department, and the expected course of current diagnosis. Patient condition: Stable Discharge Plan Plan Patient Disposition: HOME (Self Care) Patient condition on transfer: Stable Prescriptions/Referrals Prescriptions/Med Rec: No Action ziprasidone HCl [Geodon] 80 mg Capsule 60 mg PO QDAY donepezil [Aricept] 5 mg Tablet 5 mg PO HS famotidine 20 mg Tablet 20 mg PO QDAY levothyroxine 150 mcg Tablet 125 mcg PO ACBR lisinopril 10 mg tablet 10 mg PO QDAY Qty: 30 0RF lorazepam 1 mg tablet 0.5 mg PO Q12H Patient Comments: TAKE 1 TABLET BY MOUTH AT BEDTIME. MAY TAKE AN ADDITIONAL 1/2 TABLET DURING THE DAY FOR ANXIETY acetaminophen 650 mg tablet extended release 650 mg PO Q8H PRN (Reason: pain) Patient Comments: TAKE ONE TABLET BY MOUTH EVERY 8 HOURS NEEDED FOR PAIN clopidogrel [Plavix] 75 mg tablet 75 mg PO QDAY 30 Days Qty: 30 1RF Rx Instructions: Take one tablet once a day by mouth everyday lamotrigine 25 mg tablet 100 mg PO HS Patient Comments: TAKE TWO TABLETS BY MOUTH EVERY DAY tizanidine 2 mg tablet 2 mg PO Q12HR PRN (Reason: Muscle Spasm) Patient Comments: TAKE ONE TABLET BY MOUTH EVERY 12 hours NEEDED FOR MUSCLE spasm DO not exceed THREE doses in 24 hours docusate sodium [Stool Softener] 250 mg Capsule 250 mg PO HSPRN PRN (Reason: Constipation) cetirizine 10 mg tablet 10 mg PO DAILY PRN (Reason: Allergy Symptoms) Patient Comments: TAKE ONE TABLET BY MOUTH EVERY DAY NEEDED FOR ALLERGY pregabalin 75 mg capsule 75 mg PO TID PRN (Reason: Pain) Patient Comments: TAKE ONE CAPSULE BY MOUTH THREE TIMES DAILY NEEDED FOR PAIN clopidogrel 75 mg tablet 75 mg PO DAILY Patient Comments: TAKE ONE TABLET BY MOUTH EVERY DAY FOR THE HEART hydrocodone-acetaminophen 10-325 mg Tablet 1 tab PO TID PRN (Reason: pain) Referrals: Carlee Ovalle PA-C [Primary Care Provider] - In 1 week Problem List Clinical Impression: Chest pain, GALE (acute kidney injury) Patient/Caregiver Discharge Instructions Education Materials: Acute Kidney Failure Dc, ED Chest Pain, Noncardiac Additional Instructions: - It is very important that you follow-up with your primary doctor this week for close recheck. Your labs will need to be rechecked. - Return here at anytime for any worsening or emergent changes. Print Language: [place] Stand Alone Forms: [employer] Award Info., Patient Portal Info Letter
[2024-11-23] MEDS: SODIUM CHLORIDE 0.9% 1000 ML 1,000 ML 999 ML IV (18:46)
[2024-11-23] MEDS: ONDANSETRON INJ 2 MG/ML INJ 2 ML 4 MG IVP (18:46)
== END 2024-11-23 20:31 | disposition home or self-care (01) ==
PROVIDERS: Nurse Practitioner Primary Care; Emergency Provider Emergency Medicine; PCP Physician Assistant Medical
DX: R07.9 Chest pain, unspecified (principal); N17.9 Acute kidney failure, unspecified; R00.0 Tachycardia, unspecified
CPT/HCPCS: 36415; 71046; 80053; 80307; 81001; 83735; 83880; 84484; 85025; 85610; 85730; 86850; 86900; 86901; 93005; 96361; 96374; 99284; J2405; J7030

== ENCOUNTER 2024-12-01 12:44 | Emergency (ER) | payer MEDICAID, SELFPAY ==
[2024-12-01 13:10] VITALS: BP 100/63; PULSE 76; RESP 18; TEMP 36.8; O2SAT 96
--- NOTE | 2024-12-01 13:28 | PD.EDRME ---
Rapid Medical Screening Exam RME Arrival date/time: 12/01/24 12:44 Chief Complaint: Dizziness Vital signs: Vital Signs Temperature 98.3 F 12/01/24 13:10 Pulse Rate 76 12/01/24 13:10 Respiratory Rate 18 12/01/24 13:10 Blood Pressure 100/63 12/01/24 13:10 Pulse Oximetry (%) 96 12/01/24 13:10 Oxygen Delivery Method Room Air 12/01/24 13:10 Pulse ox 96% room air Vital signs reviewed by provider: Yes RME Narrative: 64-year-old female presents to the ED with a complaint of feeling weak and dizzy x 1 week. Patient tells me she has had transfusion x 2 days.
[2024-12-01 14:01] LABS: Basophils # (Auto) 0.0 Thou/mm3 (0.0-0.2); Basophils % (Auto) 1 % (0-2.5); Eosinophils # (Auto) 0.1 Thou/mm3 (0.0-0.5); Eosinophils % (Auto) 2 % (0-10); Hematocrit 30.2 % (36.0-46.0); Hemoglobin 9.7 g/dL (12.0-16.0); Immature Granulocytes Auto 0.02 Thou/mm3 (0.00-0.00); Lymphocytes # (Auto) 0.8 Thou/mm3 (1.0-4.8); Lymphocytes % (Auto) 13 % (10-50); Mean Corpuscular HGB Conc 32.1 g/dl (31.0-37.0); Mean Corpuscular Hemoglobin 27.2 pg (25.0-35.0); Mean Corpuscular Volume 85 fL (80-100); Monocytes # (Auto) 0.5 Thou/mm3 (0.0-0.8); Monocytes % (Auto) 8 % (0-12); Neutrophils # (Auto) 4.6 Thou/mm3 (1.8-7.7); Neutrophils % (Auto) 76 % (37-80); Nucleated Red Blood Cell # 0.00 Thou/mm3 (0.00-0.00); Nucleated Red Blood Cell % 0 /100 WBC (0); Platelet Count 287 Thou/mm3 (140-440); RDW Standard Deviation 59.0 fL (36.4-46.3); Red Blood Count 3.56 Miln/mm3 (4.00-5.20); White Blood Count 6.1 Thou/mm3 (3.6-11.0)
[2024-12-01 14:23] LABS: INR 0.9 (0.9-1.3); Partial Thromboplastin Time 28.2 Seconds (22.0-36.0); Prothrombin Time 10.3 Seconds (9.0-12.2)
--- NOTE | 2024-12-01 14:28 | PD.EDWEAK ---
ED Weakness RME/HPI General Chief complaint: Dizziness Stated complaint: Dizzy, BP low, anemic Time Seen by Provider: 12/01/24 13:44 Arrival date/time: 12/01/24 12:44 Limitations: no limitations RME / HPI RME / HPI Narrative: 64-year-old female presents to the ED with a complaint of feeling weak and dizzy x 1 week. Patient tells me she has had transfusion x [address] FAY MAIN ED EVALUATION: 64-year-old female with history of anemia and prior stroke with right-sided deficits presents to the Emergency Department with complaint of generalized weakness, dizziness, and feeling like she is going to fall. Patient reports symptoms have been ongoing for approximately two weeks. She also endorses an associated headache. She previously took blood pressure medications but stopped due to low readings. No history of diabetes. Substance use history unclear but she smokes daily. Lives at home with her boyfriend and her java lead. Related Data Home Medications ?Medication ?Instructions ?Recorded ?Confirmed ziprasidone HCl 80 mg capsule 60 mg PO QDAY 04/05/19 09/10/24 (Geodon) cetirizine 10 mg tablet 10 mg PO DAILY PRN Allergy Symptoms 03/27/23 09/10/24 docusate sodium 250 mg capsule 250 mg PO HSPRN PRN Constipation 03/27/23 09/10/24 (Stool Softener) lamotrigine 25 mg tablet 100 mg PO HS 03/27/23 09/10/24 pregabalin 75 mg capsule 75 mg PO TID PRN Pain 03/27/23 09/10/24 tizanidine 2 mg tablet 2 mg PO Q12HR PRN Muscle Spasm 03/27/23 09/10/24 clopidogrel 75 mg tablet 75 mg PO DAILY 04/16/23 09/10/24 hydrocodone 10 mg-acetaminophen 1 tab PO TID PRN pain 04/17/23 09/10/24 325 mg tablet donepezil 5 mg tablet (Aricept) 5 mg PO HS 02/04/24 09/10/24 Held on 09/14/24. Instructions: resume with PCP, holding due to bradycardia famotidine 20 mg tablet 20 mg PO QDAY 02/04/24 09/10/24 levothyroxine 150 mcg tablet 125 mcg PO ACBR 02/04/24 09/10/24 acetaminophen 650 mg 650 mg PO Q8H PRN pain 09/10/24 09/10/24 tablet,extended release lorazepam 1 mg tablet 0.5 mg PO Q12H 09/10/24 09/10/24 Previous Rx's ?Medication ?Instructions ?Recorded lisinopril 10 mg tablet 10 mg PO QDAY #30 tabs 04/21/24 Held on 09/14/24. Instructions: resume upon visit with PCP as your blood pressure is low clopidogrel 75 mg tablet (Plavix) 75 mg PO QDAY 1 month #30 tabs 09/14/24 Allergies Allergy/AdvReac Type Severity Reaction Status Date / Time diphenhydramine Allergy Severe ITCHING Verified 12/01/24 12:49 ketorolac Allergy Severe ITCHING Verified 12/01/24 12:49 Penicillins Allergy Severe ITCH Verified 12/01/24 12:49 sumatriptan succinate Allergy Severe ITCHING, Verified 12/01/24 12:49 VOMITING propranolol Allergy Unknown Verified 12/01/24 12:49 codeine AdvReac Severe Vomiting Verified 12/01/24 12:49 Review of Systems Review of Systems Systems Reviewed: All systems reviewed, normal except as documented Past Medical History Past Medical History NEUROLOGIC: Positive Neurological Disorders, Cerebrovascular Accident (right sided deficits), Transient Ischemic Attacks (TIA), Migraine and Head Trauma; Negative Seizures CARDIAC: Positive Cardiac Disorders, Hypercholesterolemia and Hypertension; Negative Congestive Heart Failure or Edema RESPIRATORY: Positive Chronic Obstructive Pulmonary Disease (COPD) and Asthma GASTROINTESTINAL: Positive Gastrointestinal Disorders, Cirrhosis, Ulcer, Gastroesophageal Reflux Disease and Obesity; Negative Hepatitis GENITOURINARY: Positive Genitourinary Disorders and Renal Disease REPRODUCTIVE: Positive Previous Pregnancies MUSCULOSKELETAL: Positive Musculoskeletal Disorders, Arthritis, Osteoporosis, Degenerative Disk Disease, Gout, Scoliosis, Fibromyalgia and Fractures ENT: Positive Head Trauma ENDOCRINE: Positive Endocrine Disorders and Hypothyroidism; Negative Diabetes Mellitus Type 1 or Diabetes Mellitus Type 2 HEMATOLOGIC: Positive Blood Disorders and Anemia; Negative Sickle Cell Disease or Clotting Problems PSYCHO/SOCIAL: Positive Bipolar Disorder, Depression, Anxiety and Post Traumatic Stress Disorder OTHER HISTORY: Positive Falls, Blood Transfusions, Chemotherapy, Chicken Pox, Measles and Mumps; Negative Hospitalization, Shingles, Blood Transfusion Reaction, Anesthesia Reactions, Radiation Therapy or MRSA Family History FAMILY HISTORY: Positive Family Cancer; Negative Family Respiratory Disorders, Family Cardiac Disorders, Family Surgery or Family Anesthesia Reaction Surgical History SURGICAL: Positive Endocrine Surgery, Thyroidectomy, Abdominal Surgery, Amputation, Open Reduction Internal Fixation, Hysterectomy and Section; Negative Cardiac Surgery, Ear Surgery or Tubal Ligation Social History SMOKING STATUS: Current every day smoker SECOND HAND EXPOSURE: No (vape) SUBSTANCE USE: does not use ED Exam General Limitations: Present no limitations General appearance: Present alert, in no apparent distress and other (looks chronically ill-appearing) Head Head exam: Present atraumatic, normocephalic and normal inspection Eye Eye exam: Present normal appearance, PERRL and EOMI ENT ENT exam: Present normal exam, normal oropharynx and mucous membranes moist Neck Neck exam: Present normal inspection, full ROM and trachea midline Chest Chest inspection: Present normal inspection and symmetric chest wall rise Respiratory Respiratory exam: Present normal lung sounds bilaterally Cardiovascular Cardiovascular exam: Present regular rate, normal rhythm and normal heart sounds Abdominal Exam Abdominal exam: Present soft and normal bowel sounds Extremities Exam Extremities exam: Present normal inspection and full ROM Back Exam Back exam: Present normal inspection and full ROM Neurological Exam Neurological exam: Present alert, oriented X3 and other (right sided weakness/ deficits from old stroke) Psychiatric Psychiatric exam: Present normal affect and normal mood Skin Skin exam: Present warm, dry, intact and normal color Course Quality Measures none Orders Category Date Time Status EKG (ED Only) Stat Exams 12/01/24 14:30 Ordered US pelvic complete Stat Exams 12/01/24 14:45 Completed CBC Stat Lab 12/01/24 13:36 Completed Comprehensive Metabolic Panel Stat Lab 12/01/24 13:36 Completed PT [Prothrombin Time with INR] Stat Lab 12/01/24 13:36 Completed PTT [Partial Thromboplastin Time] Stat Lab 12/01/24 13:36 Completed Troponin I Stat Lab 12/01/24 13:36 Completed Type and Screen Stat Lab 12/01/24 13:36 Completed Vital Signs Vital signs: Vital Signs Temperature 98.3 F 12/01/24 13:10 Pulse Rate 76 12/01/24 13:10 Respiratory Rate 18 12/01/24 13:10 Blood Pressure 100/63 12/01/24 13:10 Pulse Oximetry (%) 96 12/01/24 13:10 Oxygen Delivery Method Room Air 12/01/24 13:10 Weakness MDM Narrative MDM Narrative:: Patient is a 64-year-old female that is in the emergency department with weakness. Vital signs and exam as listed. Concern for symptomatic anemia, GI bleed, urinary tract infection, ACS arrhythmia metabolic disturbance among others. Ordered labs EKG and offered medication for symptom relief. Per chart review patient had a CT scan performed in September of this year which showed Multiple bilateral renal cysts, 4 mm soft calcification lower anterior right kidney otherwise no other abnormalities appreciated. Patient has a hx of DVT and is on xarelto. Patient was hospitalized in September because of weakness, and GI bleed. Had endoscopy that showed gastritis as well as internal/external hemorrhoids. Patient had hemorrhoids that were clipped. Patient received a transfusion while in the hospital. Patient was instructed to stop her Xarelto. Has been on aspirin and Plavix. Patient states that she does have intermittent episodes of bleeding from her bottom. Labs with evidence of microcytic anemia hemoglobin 9.7, previously 10.5. No significant acute electrolyte abnormality. Patient has chronic kidney disease, her creatinine is at her baseline. Went to reevaluate patient, patient states that she is also concerned that she has been bleeding from her vagina. Ordered pelvic ultrasound. Ultrasound evidence of acute abnormalities. Ordered EKG to assess for patient's weakness to her patient-return to the emergency department for sometime._Not able to find her. I will send emergency room, patient had not taken time. Advised patient to recommend an EKG however declined any further invention stated that she want to go home. Patient is hemodynamically stable not in any distress, discharge 15, has capacity make her decisions discharge home close return precautions follow-up with primary care doctor. Maria R Lagos, am scribing for and in the presence of Dr. Fay. Patient data External records reviewed:: [facility] previous records Clinical information provided by:: patient Social determinants that could affect healthcare access:: other (specify) (Substance use history unclear but she smokes daily.) Patient has the following chronic illnesses:: Anemia and prior stroke with right-sided deficits. No history of diabetes. Substance use history unclear but she smokes daily. How is presenting disease/condition affected by chronic disease/condition?: exacerbated by Evaluation data The following diagnostics were reviewed and interpreted by me:: lab results, radiology exam(s) and EKG tracing(s) Lab and/or radiology exams considered but not ordered:: none Interpretation Summary: Procedure(s): US pelvic complete Accession Number(s): [id number] cc: Carlee Ovalle PA-C; Ranjit Kebede MD; Jacinta Fay MD~ Examination: Pelvic ultrasound, transabdominal, complete Technique: Transabdominal ultrasound of the pelvis performed using grayscale imaging Date and time of exam: December 01, 2024, 1536 hours INDICATIONS: Intermittent vaginal bleeding beginning 3 years ago FINDINGS: Absent uterus, absent ovaries No free fluid in the pelvis no pelvic mass IMPRESSION: No free fluid in the pelvis, no pelvic mass Dictated By: Ranjit Kebede MD Medications / Prescriptions Medications or Prescriptions considered but not ordered:: none Medication administrations:: see above if any Consultations Consultation(s) initiated? (list below): No Diagnosis Weakness Differential Diagnosis: other (post-stroke gait instability, hypotension or medication-related dizziness, and anemia-related weakness) Most likely diagnosis given after review of the tests above:: Weakness Abnormal uterine bleeding Admission Indicated Admission indicated?: not indicated Admission Request Was there a request for admission?: No Disposition Plan Disposition Plan: Discharge Discharge Attestation Discharge Attestation: The patient and all family members were given an opportunity to ask questions and understood the discharge instructions. Discharge instructions specifically effects, indications for sooner follow up or return to the emergency department, and the expected course of current diagnosis. Patient condition: Stable Discharge Plan Plan Patient Disposition: HOME (Self Care) Prescriptions/Referrals Prescriptions/Med Rec: No Action ziprasidone HCl [Geodon] 80 mg Capsule 60 mg PO QDAY donepezil [Aricept] 5 mg Tablet 5 mg PO HS famotidine 20 mg Tablet 20 mg PO QDAY levothyroxine 150 mcg Tablet 125 mcg PO ACBR lisinopril 10 mg tablet 10 mg PO QDAY Qty: 30 0RF lorazepam 1 mg tablet 0.5 mg PO Q12H Patient Comments: TAKE 1 TABLET BY MOUTH AT BEDTIME. MAY TAKE AN ADDITIONAL 1/2 TABLET DURING THE DAY FOR ANXIETY acetaminophen 650 mg tablet extended release 650 mg PO Q8H PRN (Reason: pain) Patient Comments: TAKE ONE TABLET BY MOUTH EVERY 8 HOURS NEEDED FOR PAIN clopidogrel [Plavix] 75 mg tablet 75 mg PO QDAY 30 Days Qty: 30 1RF Rx Instructions: Take one tablet once a day by mouth everyday lamotrigine 25 mg tablet 100 mg PO HS Patient Comments: TAKE TWO TABLETS BY MOUTH EVERY DAY tizanidine 2 mg tablet 2 mg PO Q12HR PRN (Reason: Muscle Spasm) Patient Comments: TAKE ONE TABLET BY MOUTH EVERY 12 hours NEEDED FOR MUSCLE spasm DO not exceed THREE doses in 24 hours docusate sodium [Stool Softener] 250 mg Capsule 250 mg PO HSPRN PRN (Reason: Constipation) cetirizine 10 mg tablet 10 mg PO DAILY PRN (Reason: Allergy Symptoms) Patient Comments: TAKE ONE TABLET BY MOUTH EVERY DAY NEEDED FOR ALLERGY pregabalin 75 mg capsule 75 mg PO TID PRN (Reason: Pain) Patient Comments: TAKE ONE CAPSULE BY MOUTH THREE TIMES DAILY NEEDED FOR PAIN clopidogrel 75 mg tablet 75 mg PO DAILY Patient Comments: TAKE ONE TABLET BY MOUTH EVERY DAY FOR THE HEART hydrocodone-acetaminophen 10-325 mg Tablet 1 tab PO TID PRN (Reason: pain) Referrals: Carlee Ovalle PA-C [Primary Care Provider] - In 1 week Problem List Clinical Impression: Weakness, Abnormal uterine bleeding Patient/Caregiver Discharge Instructions Education Materials: Understanding Uterine Bleeding Additional Instructions: You declined EKG and further evaluation today. Your work up however was reassuring and at your baseline. I recommend that you establish care with a street department dispatcher to discuss your uterine bleeding. Return immediately if you have recurrence of symptoms or new symptoms of concern Print Language: Nam[place]ian Stand Alone Forms: [employer] Award Info., Patient Portal Info Letter
[2024-12-01 14:30] LABS: Alanine Aminotransferase < 7 U/L (10-49); Albumin, Serum 4.2 gm/dL (3.4-4.8); Albumin/Globulin Ratio 1.6 (1.2-2.2); Alkaline Phosphatase 78 U/L (46-116); Anion Gap 7 (7-16); Aspartate Amino Transferase 15 U/L (0-34); BUN/Creatinine Ratio 11 Ratio (12-20); Bilirubin,Total 0.2 mg/dL (0.3-1.2); Blood Urea Nitrogen 15 mg/dL (9-23); Calcium 8.8 mg/dL (8.3-10.6); Calcium (Corrected) 8.8 mg/dL (8.5-10.1); Carbon Dioxide 25.6 mMol/L (20.0-31.0); Chloride 108 mMol/L (98-107); Creatinine (Component) 1.4 mg/dL (0.6-1.3); Globulin 2.6 gm/dL (2.3-3.5); Glucose 107 mg/dL (74-106); Osmolality,Calculated 282 (275-295); Potassium 4.9 mMol/L (3.4-5.1); Sodium 141 mMol/L (136-145); Total Protein 6.8 gm/dL (5.7-8.2); eGFR 43 See Note
--- NOTE | 2024-12-01 14:45 | XR_ITS ---
Examination: Pelvic ultrasound, transabdominal, complete Technique: Transabdominal ultrasound of the pelvis performed using grayscale imaging Date and time of exam: December 01, 2024, 1536 hours INDICATIONS: Intermittent vaginal bleeding beginning 3 years ago FINDINGS: Absent uterus, absent ovaries No free fluid in the pelvis no pelvic mass IMPRESSION: No free fluid in the pelvis, no pelvic mass
[2024-12-01 14:52] LABS: Troponin I < 0.002 ng/mL (0.0-0.045)
--- NOTE | 2024-12-01 19:21 | PC.NURSE ---
no answer when calling patients name
--- NOTE | 2024-12-01 19:26 | PC.NURSE ---
no answer whenever calling patients name in
== END 2024-12-01 19:28 | disposition home or self-care (01) ==
PROVIDERS: Physician Assistant; Emergency Provider Emergency Medicine; PCP Physician Assistant Medical
DX: N93.9 Abnormal uterine and vaginal bleeding, unspecified (principal); R53.1 Weakness
CPT/HCPCS: 36415; 76856; 80053; 84484; 85025; 85610; 85730; 86850; 86900; 86901; 99283